=== PATIENT | female | born 1990 | race Caucasian/White ===

== ENCOUNTER 2016-04-27 14:12 | Emergency (ER) | payer MEDICAID ==
[2016-04-27 14:57] VITALS: BP 98/41
--- NOTE | 2016-04-27 15:02 | ER Document Report ---
ED Medical Screen (RME) - General Stated Complaint: NAUSEA Notes: abscess to left breast x 3 days. + headache, + nausea. no drainage. TRAVEL OUTSIDE OF THE [place] IN LAST 30 DAYS: No - Related Data Allergies/Adverse Reactions: Choline Fenofibrate [From Trilipix] Allergy (Mild, Verified 09/17/15 18:17) rash oxcarbazepine [From Trileptal] Allergy (Verified 09/17/15 18:17) Past Medical History Pulmonary Medical History: Reports: Hx Bronchitis Psychiatric Medical History: Reports: Hx Anxiety, Hx Bipolar Disorder - mood d/o , Hx Depression Past Surgical History: Reports: Hx Tonsillectomy - Immunizations Hx Diphtheria, Pertussis, Tetanus Vaccination: Yes Physical Exam - Vital signs Vitals: Temp Pulse Resp BP Pulse Ox 97.8 F 75 16 98/41 L 100 04/27/16 14:56 04/27/16 14:56 04/27/16 14:56 04/27/16 14:56 04/27/16 14:56 Course - Vital Signs Vital signs: Temp Pulse Resp BP Pulse Ox 97.8 F 75 16 98/41 L 100 04/27/16 14:56 04/27/16 14:56 04/27/16 14:56 04/27/16 14:56 04/27/16 14:56
== END 2016-04-27 17:12 | disposition left against medical advice (07) ==
LOC: ER 14:12
DX: O26.892 Other specified pregnancy related conditions, second trimester (principal); R11.0 Nausea; R51 Headache; O91.112 Abscess of breast associated with pregnancy, second trimester; Z3A.17 17 weeks gestation of pregnancy; Z88.8 Allergy status to other drugs, medicaments and biological substances; Z53.20 Procedure and treatment not carried out because of patient's decision for unspecified reasons
CPT/HCPCS: 99281

== ENCOUNTER 2016-09-08 21:43 | Outpatient (CLI) | payer OTHER ==
[2016-09-08 23:11] LABS: APPEARANCE,URINE CLEAR; BILIRUBIN,URINE NEGATIVE (NEGATIVE); GLUCOSE, URINE NEGATIVE (NEGATIVE); KETONES,URINE NEGATIVE (NEGATIVE); PROTEIN,URINE NEGATIVE (NEGATIVE); URINE SPECIFIC GRAVITY > 1.060
[2016-09-08 23:12] LABS: LEUKOCYTE ESTERASE,URINE NEGATIVE (NEGATIVE); NITRITE,URINE NEGATIVE (NEGATIVE); UROBILINOGEN,URINE NEGATIVE mg/dL (<2.0)
[2016-09-08 23:23] LABS: URINE BARBITURATES SCREEN NEGATIVE; URINE METHADONE SCREEN NEGATIVE; URINE OPIATES LOW NEGATIVE; URINE PHENCYCLIDINE SCREEN NEGATIVE
--- NOTE | 2016-09-08 23:37 | RADIOLOGY REPORT (SQ) ---
EXAM DESCRIPTION: U/S OB LIMITED COMPLETED DATE/TIME: 09/08/2016 11:29 pm REASON FOR STUDY: routine ANNA COMPARISON: None. TECHNIQUE: Limited transabdominal grayscale ultrasound for evaluation of specific requested obstetri constantine parameters. LIMITATIONS: None. FINDINGS: ANNA: 8.4 cm. FHR: 152 beats per minute. PRESENTATION: Cephalic. OTHER: No other significant findings. IMPRESSION: LIMITED OBSTETRICAL ULTRASOUND WITH MEASURED PARAMETERS DELINEATED ABOVE. Trimester of : Third trimester - 28 weeks to delivery. TECHNICAL DOCUMENTATION: JOB ID: [id number] [employer]- All Rights Reserved
--- NOTE | 2016-09-09 00:05 | Non Stress Test Report ---
Non Stress Test Datetime Report Generated by CPN: 09/09/2016 00:05 DEMOGRAPHIC EGA NST: 38.2 INDICATION Indication for Study: Ordered by Provider MONITORING Monitor Explained: Monitor Explained; Test Explained; Patient Verbalized Understanding Time on Monitor: 09/08/2016 21:57 Time off Monitor: 09/08/2016 23:09 NST Duration: 72 NST INTERVENTIONS NST Interventions: PO Hydration Physician Notified NST: Hall BABY A: [id number] BABY A Movement : Present Contraction Frequency : rare FHR Baseline : 150 Accelerations : 15X15 Decelerations : None Variability : Moderate 6-25bpm NST Review: Meets Criteria for Reactive NST NST Review and Verified By : VINICIO Haider NST Results: Reactive NST REPORT Report Trigger: Send Report
== END 2016-09-08 23:47 | disposition home or self-care (01) ==
LOC: LC 21:43
PROVIDERS: ATTEND Obstetrics & Gynecology
PROC: 4A1HXCZ Monitoring of Products of Conception, Cardiac Rate, External Approach (ICD-10-PCS; principal; 2016-09-08)
DX: O47.1 False labor at or after 37 completed weeks of gestation (principal); Z3A.38 38 weeks gestation of pregnancy
CPT/HCPCS: 59025; 76815; 80307; 81005

== ENCOUNTER 2016-09-13 00:56 | Inpatient (IN) | payer OTHER ==
[2016-09-13 01:41] LABS: APPEARANCE,URINE SLIGHTLY-CLOUDY; BILIRUBIN,URINE NEGATIVE (NEGATIVE); GLUCOSE, URINE NEGATIVE (NEGATIVE); KETONES,URINE NEGATIVE (NEGATIVE); LEUKOCYTE ESTERASE,URINE LARGE (NEGATIVE); NITRITE,URINE NEGATIVE (NEGATIVE); PROTEIN,URINE NEGATIVE (NEGATIVE)
[2016-09-13 01:48] LABS: AMNISURE (ROM) NEGATIVE (NEGATIVE)
[2016-09-13 02:29] LABS: URINE BARBITURATES SCREEN NEGATIVE; URINE METHADONE SCREEN NEGATIVE; URINE OPIATES LOW NEGATIVE; URINE PHENCYCLIDINE SCREEN NEGATIVE
[2016-09-13] MEDS ORDERED: TERBUTALINE SULFATE INJ/PF 1 MG/1 ML SDV ONE (04:06)
[2016-09-13] MEDS ORDERED: RINGERS SOLUTION,LACTATED 1,000 ML IV ONE (04:16)
[2016-09-13] MEDS ORDERED: RINGERS SOLUTION,LACTATED 1,000 ML IV PRN (04:16)
[2016-09-13] MEDS ORDERED: CITRIC ACID/SODIUM CITRATE ORAL SOLN 15 ML UDCUP PO PRN ×2 (04:18→05:55)
[2016-09-13] MEDS ORDERED: CEFAZOLIN 2 GM/D5W RTU 2 GM/50 ML RTUPB IV PRN (05:05)
[2016-09-13] MEDS ORDERED: CEFAZOLIN 2 GM/D5W RTU 2 GM/50 ML RTUPB IV ONE (05:23)
[2016-09-13] MEDS ORDERED: CITRIC ACID/SODIUM CITRATE ORAL SOLN 15 ML UDCUP ONE (05:23)
[2016-09-13 05:32] LABS: HEMATOCRIT 33.5 % (36.0-47.0); HGB HCT DIFFERENCE -0.5; MEAN CORPUSCULAR HEMOGLOBIN 28.5 pg (27.0-33.4); MEAN CORPUSCULAR HGB CONC 32.8 g/dL (32.0-36.0); MEAN CORPUSCULAR VOLUME 87 fl (80-97); RED BLOOD COUNT 3.87 10^6/uL (3.72-5.28); RED CELL DISTRIBUTION WIDTH 13.7 % (11.5-14.0); WHITE BLOOD COUNT 20.9 10^3/uL (4.0-10.5)
[2016-09-13] MEDS ORDERED: EPHEDRINE SULFATE INJ 50 MG/1 ML AMPULE ONE (05:44)
[2016-09-13] MEDS ORDERED: FENTANYL CITRATE INJ/PF 100 MCG/2 ML AMPUL ONE (05:44)
[2016-09-13] MEDS ORDERED: OXYTOCIN 10 UNIT/ML VIAL ONE (05:44)
[2016-09-13] MEDS ORDERED: PROPOFOL INJ 200 MG/20 ML VIAL IV ONE (05:44)
[2016-09-13] MEDS ORDERED: MIDAZOLAM 2 MG/2 ML INJ ONE (05:45)
[2016-09-13] MEDS ORDERED: DIPHENHYDRAMINE HCL 50 MG/ML VIAL IV PRN (06:23)
[2016-09-13 06:25] LABS: BASOPHILS % (MANUAL) 0 % (0-2); EOSINOPHILS % (MANUAL) 0 % (0-6); LYMPHOCYTES % (MANUAL) 13 % (13-45); TOTAL CELLS COUNTED 100
[2016-09-13 06:26] LABS: OVALOCYTES SLIGHT; POIKILOCYTOSIS SLIGHT; SCHISTOCYTES SLIGHT; TOXIC GRANULATION SLIGHT
[2016-09-13] MEDS ORDERED: OXYTOCIN/NORMAL SALINE 1,000 ML IV PRN (07:17)
[2016-09-13] MEDS ORDERED: DIPH/PERTUSS(ACELL)/TETANUS VAC/PF 0.5 ML SYR (>=10YO) IM PRN (07:17)
[2016-09-13] MEDS ORDERED: ACETAMINOPHEN 100 ML IV PRN (07:17)
[2016-09-13] MEDS ORDERED: MEASLES,MUMPS&RUBELLA VACC/PF 0.5 ML VIAL SUBCUT PRN (07:17)
[2016-09-13] MEDS ORDERED: SIMETHICONE 80 MG TAB.CHEW PO PRN (07:17)
[2016-09-13] MEDS ORDERED: HYDROMORPHONE HCL INJ/PF 2 MG/ML AMPULE IV PRN (07:17)
[2016-09-13] MEDS ORDERED: ACETAMINOPHEN 325 MG TABLET PO PRN (07:17)
[2016-09-13] MEDS ORDERED: PROMETHAZINE HCL INJ 25 MG/1 ML VIAL IV PRN (07:17)
[2016-09-13] MEDS ORDERED: OXYCODONE-ACETAMINOPHEN 5-325 MG TABLET PO PRN (07:17)
--- NOTE | 2016-09-13 07:24 | Brief Operative Note ---
BRIEF OPERATIVE REPORT DATE OF SURGERY: 09/13/16 TIME OF SURGERY: 06:00 PREOPERATIVE DIAGNOSIS: , PUND at 39+0, h/o shoulder dystocia times 2 POSTOPERATIVE DIAGNOSIS: MORIS - delivered SURGEON: ABIMAEL LEIVA FINDINGS: normal tubes and ovaries, no nuchal cord. infant delivered at 0623, VMI. Apgars 8/9. Uterus incision nicked and then extended bluntly in usual fashion with left lateral extension to uterine artery upon delivery of head. UOP 200ml and clear, IVF 1100ml COMPLICATIONS: none ESTIMATED BLOOD LOSS: 700ml TISSUE REMOVED OR ALTERED: placenta and cord not sent to pathology TECHNICAL PROCEDURE: Primary Low Transverse Section
--- NOTE | 2016-09-13 07:48 | Delivery Summary ---
Del Sum A-C Datetime Report Generated by CPN: 09/13/2016 07:47 DELIVERY PERSONNEL DELIVERY PERSONNEL: [phone] Delivery Doctor:: Korin Madison MD Anesthesiologist:: Edgar Pal MD ASSISTANT HEALTH EDUCATOR:: Crissy Duran CRNA Labor and Delivery Nurse:: Maggie Simon RN Neonatal Nurse Practitioner:: KWAME Rice Nursery Nurse:: Candy Alaniz RN Photocomposing Keyboard Operator/ENGRAVING SUPERVISOR: Elo Silva CST Photocomposing Keyboard Operator/ENGRAVING SUPERVISOR: ST Barber Additional Personnel: : Ralph Stephens CNA MATERNAL INFORMATION Delivery Anesthesia: Spinal Medications After Delivery: Pitocin Bolus-Please Comment Maternal Complications: None LABOR SUMMARY EDC: 09/20/2016 00:00 No. Babies in Womb: 1 Attempted: No Labor Anesthesia: None LABOR INFORMATION Reason for Induction: Not Applicable Onset of Labor: 09/13/2016 02:22 Oxytocin: N/A Group B Beta Strep: Positive Antibiotics # of Doses: 1 Antibiotics Time of Last Dose: 51 Name of Antibiotic Given: Ancef 2 grams Steroids Given: None Reason Steroids Not Administered: Not Applicable MEMBRANES Membranes Rupture Method: Artificial Rupture of Membranes: 09/13/2016 06:23 Length of Rupture (hr): 0.00 Amniotic Fluid Amount: Moderate Amniotic Fluid Odor: Normal STAGES OF LABOR Stage 3 hr: 0 Stage 3 min: 1 Total Time in Labor hr: 4 Total Time in Labor min: 2 VAGINAL DELIVERY Episiotomy: None Laceration Extension: N/A Laceration Type: None Laceration Repair: Not Applicable Sponge Count Correct: N/A Sharps Count Correct: N/A CSECTION DELIVERY Primary Indication: Primary Elective Secondary Indication: Other Other Secondary Indication: Previous shoulder dystocia x 2 CSection Urgency: Non-Scheduled CSection Incidence: Primary Labor: Labor Elective: Elective CSection Incision: Lower Uterine Transverse BABY A INFORMATION Delivery Date/Time: 09/13/2016 06:23 Method of Delivery: Born in Route : No : N/A Forceps: N/A Vacuum Extraction: N/A Shoulder Dystocia : No PRESENTATION/POSITION BABY A Presentation: Cephalic Cephalic Presentation: Vertex Breech Presentation: N/A PLACENTA INFORMATION BABY A Placenta Delivery Time : 09/13/2016 06:24 Placenta Method of Delivery: Manual Removal Placenta Status: Delivered SCORES BABY A Heart Rate 1 min: >100 bpm Resp Effort 1 min: Good Cry Reflex Irritability 1 min: Cough or Sneeze or Pulls Away Muscle Tone 1 min: Active Motion Color 1 min: Blue/Pale Resuscitation Effort 1 min: Tactile Stimulation SCORE 1 MIN: 8 Heart Rate 5 min: >100 bpm Resp Effort 5 min: Good Cry Reflex Irritability 5 min: Cough or Sneeze or Pulls Away Muscle Tone 5 min: Active Motion Color 5 min: Body Cochrane, Extremities Blue SCORE 5 MIN: 9 INFORMATION BABY A Gestational Age at Delivery: 39.0 Gestational Status: Full Term- 39- 40.6 Weeks Infant Outcome : Liveborn Infant Condition : Stable Sex: Male IDENTIFICATION BABY A Verification Date/Time: 09/13/2016 06:29 ID Band Number: [id number] Mother's Name Verified: Yes Infant RN Verifying Infant: SJesus Lipscomb, RN _ C. Jacy, RN WEIGHT/LENGTH BABY A Infant Birthweight (gm): 2940 Weight (lb): 6 Weight (oz): 8 Infant Length (in): 19.75 Infant Length (cm): 50.17 CORD INFORMATION BABY A No. Cord Vessels: 3 Nuchal Cord : N/A Cord Blood Taken: Yes-For Storage (Mom's Blood type +) Infant Suction: Mouth; Nose ASSESSMENT BABY A Infant Complications: None Skin to Skin: No BABY B INFORMATION : N/A
[2016-09-13] MEDS ORDERED: OXYTOCIN/NORMAL SALINE 20 UNIT/1,000 ML RTUINJ ONE (07:54)
[2016-09-13] MEDS ORDERED: ACETAMINOPHEN 100 ML IV ONE (07:54)
--- NOTE | 2016-09-13 10:19 | Admission Physical ---
Datetime Report Generated by CPN: 09/13/2016 10:18 CURRENT ADMISSION Chief Complaint: Uterine Contractions Indication for Induction: Not Applicable Admit Plan: Admit to Unit; Initiate Section Protocol ALLERGIES Medication Allergies: Yes Medication Allergies: Choline Fenofibrate/NJ/rash (04/27/2016); oxcarbazepine (04/27/2016) Latex: No Latex Allergies Food Allergies: none Environmental Allergies: none OBSTETRICAL HISTORY EDC: 09/20/2016 00:00 : 4 Para: 2 Term: 2 : 0 SAB: 1 IAB: 0 Ectopic: 0 Livin Cesareans: 0 VBACs: 0 Multiple Births: 0 Gestational Diabetes: No Rh Sensitization: No Incompetent Cervix: No ANGELES: No Infertility: No ART Treatment: No Uterine Anomaly: No IUGR: No Hx Previous C/S: No Macrosomia: No Hx Loss/Stillborn: No PIH: No Hx : No Placenta Previa/Abruption: No Depression/PP Depression: No PTL/PROM: No Post Hemorrhage: No Current Procedures: Ultrasound; NST Obstetrical History Comments: G1: 2006 G2: male 7lbs 6 ounces G3: female with shoulder dystocia 7lbs 10 ounces G4: Current, scheduled c/s SEE RECORDS Alcohol: No Marijuana : No Cocaine: No Other Illicit Drugs: No Cigarettes: Current Everyday Smoker. [id number] Cigarette Frequency: 5 - 10 per day Advised to Stop: Yes MEDICAL HISTORY Diabetes: No Blood Transfusion: No Pulmonary Disease (Asthma, TB): No Breast Disease: No Hypertension: No Pest Control Service Technician Surgery: No Heart Disease: No Hosp/Surgery: Yes Autoimmune Disorder: No Anesthetic Complications: No Kidney Disease: No Abnormal Pap Smear: Yes Neuro/Epilepsy: No Psychiatric Disorders: Yes Other Medical Diseases: No Hepatitis/Liver Disease: No Significant Family History: No Varicosities/Phlebitis: No Trauma/Violence : No Thyroid Dysfunction: No Medical History Comments: abnormal paps- repeats negative tonsils and adenoids; d_c G3 diagnosed with ADHD and bipolar as a teenager, no meds since age 18 hx heroin use, pt states she is clean for 1 year, on subutex INFECTIOUS HISTORY Gonorrhea: Yes Genital Herpes: No Chlamydia: Yes Tuberculosis: No Syphilis: No Hepatitis: No HIV/AIDS Exposure: No Rash or Viral Illness: No HPV: No Infectious History Comments: Chlamydia, gonorrhea and trich when teenager PHYSICAL EXAM General: Normal HEENT: Normal Neurologic: Normal Thyroid: Normal Heart: Normal Lungs: Normal Breast: Deferred Back: Normal Abdomen: Normal Genitourinary Exam: Normal Extremities: Normal DTRs: Normal Pelvic Type: Adequate Vital Signs: Reviewed; Within Normal Limits VAGINAL EXAM Dilatation: 5 Effacement: 90 Station: -1 Contraction Comments: q 2-5 MEMBRANES Membranes: Intact FETUS A EGA: 39.0 Monitoring: External US FHR- Baseline: 130 Variability: Moderate 6-25bpm Accelerations: 15X15 Decelerations: None FHR Category: Category I Presentation: Vertex Admit Comment: 26yo at 39+0ega with h/o reports shoulder dystocia with prior two and reports G2 had torticolis caused by shoulder dystocia. Baby required 9 months of physical therapy. She was scheduled for Primary C/S next week but presents today with regular uterine ctx. cvx changed from 4cm to 5cm. Pt desires OCPs pp for contraception. Reviewed plan to proceed with Primary C/S and pt strongly desires to proceed with primary C/S due to h/o shoulder dystocia times 2. PLANS FOR LABOR AND DELIVERY Labor and Delivery: None Pain Management: None Other Pain Management Plans: wants to try going without Feeding Preference: Breast Benefit of Breast Feed Discussed: Yes Circumcision: Yes INFORMED CONSENT Informed Consent Obtained: Section Delivery; Risks, Benefits and Alternatives Discussed Signature: with User ID: [email or web address]
[2016-09-13] MEDS: PRENATAL VITAMIN W-O CA NO5/FE FUMARATE/FA CAPSULE PO SCH (11:45)
[2016-09-13] MEDS: DOCUSATE SODIUM 100 MG CAPSULE PO SCH ×2 (11:45→17:30)
[2016-09-13] MEDS: IBUPROFEN 800 MG TABLET PO SCH ×3 (11:51→23:03)
[2016-09-13] MEDS ORDERED: KETOROLAC TROMETHAMINE 60 MG/2 ML SDV ONE (13:50)
[2016-09-13] MEDS ORDERED: ONDANSETRON HCL INJ/PF 4 MG/2 ML SDV ONE (13:50)
[2016-09-13] MEDS: OXYCODONE-ACETAMINOPHEN 5-325 MG TABLET PO PRN (14:20)
[2016-09-14] MEDS: OXYCODONE-ACETAMINOPHEN 5-325 MG TABLET PO PRN ×5 (00:13→23:41)
[2016-09-14] MEDS: IBUPROFEN 800 MG TABLET PO SCH ×4 (06:13→23:42)
[2016-09-14 07:17] LABS: HEMATOCRIT 27.3 % (36.0-47.0); HEMOGLOBIN 9.1 g/dL (12.0-15.5); MEAN CORPUSCULAR HEMOGLOBIN 28.8 pg (27.0-33.4); MEAN CORPUSCULAR HGB CONC 33.3 g/dL (32.0-36.0); MEAN CORPUSCULAR VOLUME 86 fl (80-97); RED BLOOD COUNT 3.16 10^6/uL (3.72-5.28); RED CELL DISTRIBUTION WIDTH 13.5 % (11.5-14.0); WHITE BLOOD COUNT 17.4 10^3/uL (4.0-10.5)
--- NOTE | 2016-09-14 09:10 | PDOC PROGRESS REPORT ---
Subjective-OB Subjective: Post Delivery Day: 26 year old. Denies any needs at this time Doing well, OOB in room, eating well, voiding, pain under control, passing gas, breast feeding Physical Exam (OB) Vital Signs: Temp Pulse Resp BP Pulse Ox 98.4 F 82 16 109/67 99 09/14/16 07:35 09/14/16 07:35 09/14/16 07:35 09/14/16 07:35 09/14/16 07:35 Intake & Output 09/13/16 09/14/16 09/15/16 06:59 06:59 06:59 Intake Total 1080 Output Total 1100 Balance -20 Weight 74.1 kg - Dressing Removed: No Incision: Open Closure Type: Surgical Glue - Lochia Lochia Amount: Scant < 10 ml Lochia Color: Rubra/Red - Abdomen Description: Soft, Round Hernia Present: No Fundal Description: Firm, Midline Fundal Height: u/u - u/2 Objective-Diagnostic Laboratory: 09/14/16 07:00 09/14/16 07:00 WBC 17.4 H RBC 3.16 L Hgb 9.1 L Hct 27.3 L MCV 86 MCH 28.8 MCHC 33.3 RDW 13.5 Plt Count 235 Assessment and Plan(PN) - Assessment and Plan (1) ADHD Qualifiers: Attention deficit-hyperactivity disorder type: unspecified Qualified Code(s): F90.9 - Attention-deficit hyperactivity disorder, unspecified type Is this a current diagnosis for this admission?: Yes (2) complicated by subutex maintenance, antepartum Is this a current diagnosis for this admission?: Yes (3) Heroin abuse Is this a current diagnosis for this admission?: Yes (4) Late care affecting Qualifiers: Trimester: third trimester Qualified Code(s): O09.33 - Supervision of with insufficient care, third trimester Is this a current diagnosis for this admission?: Yes (5) Smoker Is this a current diagnosis for this admission?: Yes (6) Delivery by elective caesarean section Is this a current diagnosis for this admission?: Yes - Time Spent with Patient Time with patient: Less than 15 minutes Smoking Education Provided: Over 3 minutes Medications reviewed and adjusted accordingly: Yes - Disposition Anticipated Discharge: Home Within: within 48 hours
[2016-09-14] MEDS: PRENATAL VITAMIN W-O CA NO5/FE FUMARATE/FA CAPSULE PO SCH (10:15)
[2016-09-14] MEDS: DOCUSATE SODIUM 100 MG CAPSULE PO SCH ×2 (10:15→18:22)
[2016-09-15] MEDS: OXYCODONE-ACETAMINOPHEN 5-325 MG TABLET PO PRN ×2 (05:09→11:27)
[2016-09-15] MEDS: IBUPROFEN 800 MG TABLET PO SCH ×3 (05:10→17:39)
[2016-09-15 08:40] VITALS: BP 112/72
--- NOTE | 2016-09-15 08:47 | PDOC DISCHARGE SUMMARY ---
Final Diagnosis Discharge Date: 09/15/16 - Final Diagnosis (1) Acute blood loss anemia Is this a current diagnosis for this admission?: Yes (2) ADHD Is this a current diagnosis for this admission?: Yes (3) Delivery by elective caesarean section Is this a current diagnosis for this admission?: Yes (4) Heroin abuse Is this a current diagnosis for this admission?: Yes (5) Late care affecting Is this a current diagnosis for this admission?: Yes (6) complicated by subutex maintenance, antepartum Is this a current diagnosis for this admission?: Yes (7) Smoker Is this a current diagnosis for this admission?: Yes (8) BV (bacterial vaginosis) Is this a current diagnosis for this admission?: Yes (9) Infected insect bites of multiple sites Is this a current diagnosis for this admission?: Yes Discharge Data - Discharge Medication Home Medications: Vit#96/Ferrous Fum/FA [ Tablet] 1 each PO DAILY 05/12/14 Buprenorphine HCl [Subutex 8 mg Sublingual Tablet] 1 tab SL BID 09/13/16 Docusate Sodium [Colace 100 mg Capsule] 100 mg PO BID #60 capsule 09/15/16 Ferrous Sulfate [Feosol 325 mg Tablet] 325 mg PO DAILY #30 tab 09/15/16 Ibuprofen [Motrin 800 mg Tablet] 800 mg PO Q6 #60 tablet 09/15/16 Oxycodone HCl/Acetaminophen [Percocet 5-325 mg Tablet] 2 tab PO Q4HP PRN #30 tablet 09/15/16 Gestational Age: 39.0 Reason(s) for Admission: Ceasarean Section-Primary, Group B Strep Positive Procedures: NST Intrapartum Procedure(s): : Low Cervical, Transverse - Data Baby 1 Female at 1 minute: 8 at 5 minutes: 9 Weight: 2940 kg Home with Mother: Yes Complications: No - Diagnosis Test Laboratory: Temp Pulse Resp BP Pulse Ox 97.9 F 104 H 14 112/72 99 09/15/16 08:00 09/15/16 08:00 09/15/16 08:00 09/15/16 08:00 09/15/16 08:00 09/13/16 09/13/16 09/14/16 01:20 04:59 07:00 RBC 3.87 3.16 L Hgb 11.0 L 9.1 L Hct 33.5 L 27.3 L Urine Opiates Screen NEGATIVE - Discharge information/Instructions Discharge Activity: Activity As Tolerated, No Lifting Over 10 Pounds, Pelvic Rest, No tub bath Discharge Diet: Regular Disposition: HOME, SELF-CARE Follow up with: [facility] in: 1, Weeks
[2016-09-15] MEDS: DOCUSATE SODIUM 100 MG CAPSULE PO SCH ×2 (09:39→17:39)
[2016-09-15] MEDS: PRENATAL VITAMIN W-O CA NO5/FE FUMARATE/FA CAPSULE PO SCH (09:40)
--- NOTE | 2016-10-13 07:56 | Operative Report ---
Operative Report DATE OF SURGERY: 09/13/16 PREOPERATIVE DIAGNOSIS: , PUND at 39+0, h/o shoulder dystocia times 2, Active labor POSTOPERATIVE DIAGNOSIS: MORIS - delivered OPERATION: Primary Low Transverse Section SURGEON: ABIMAEL LEIVA ANESTHESIA: Spinal TISSUE REMOVED OR ALTERED: placenta and cord not sent to pathology COMPLICATIONS: None ESTIMATED BLOOD LOSS: 700ml INTRAOPERATIVE FINDINGS: normal tubes and ovaries, no nuchal cord. delivered at 0623, VMI. Apgars 8/9. Uterus incision nicked and then extended bluntly in usual fashion with left lateral extension to uterine artery upon delivery of head. UOP 200ml and clear, IVF 1100ml PROCEDURE: Anesthesia provider: [Edgar Pal MD] Estimated blood loss: [700ml] Urine output: [200ml] IV fluids: [1100ml] Complications: [None] Specimens: [None] Indications: [26yo with history of shoulder dystocia during prior 2 pregnancies. She was scheduled for primary section due to history of shoulder dystocia times two. She presents today in active labor with regular uterine contractions and cervical change from 4cm to 5cm. The risks, benefits, alternatives were reviewed and she desires to proceed with planned procedure.] Procedure: The patient was taken to the operating room where spinal anesthesia was obtained and found to be adequate. She was then prepped and draped in the normal sterile fashion and placed in the dorsal supine position with a leftward tilt. A Pfannenstiel skin incision was then made and carried through to the underlying layers of the fascia with the scalpel. The fascia was incised in the midline and the incision extended laterally with the Darling scissors. The superior aspect of the fascial incision was then grasped with Kj clamps elevated and the underlying rectus muscles dissected off [bluntly]. Attention was then turned to the inferior aspect of the fascial incision which in a similar fashion was grasped, tented up with Dread clamps, and the rectus muscles dissected off [bluntly]. The rectus muscles were then in the midline and the peritoneum at the amount identified and entered [bluntly]. The peritoneal incision was then extended superiorly and inferiorly with good visualization of the bladder. The bladder blade was inserted and the vesicouterine peritoneum identified grasped with Mongolian pickups and entered sharply with the Metzenbaum scissors. This incision was then extended laterally with the Metzenbaum scissors and a bladder flap created digitally. The bladder blade was then reinserted and the lower uterine segment incised in a transverse fashion with the scalpel. The uterine incision was then extended bluntly. The bladder blade was removed and the 's head was delivered from cephalic presentation atraumatically. The nose and mouth were suctioned and the cord doubly clamped and cut. And the was handed off to waiting pediatricians. Delivery of the head caused extension of the uterine incision to the left into the left uterine artery. O'leary suture placed on this site for hemostasis which was achieved. The placenta was then delivered spontaneously and the uterus exteriorized and cleared of all clots and debris. The uterine incision was then repaired with 1- 0 Vicryl in a running locked fashion. A second layer of the same suture was used to obtain hemostasis via imbrication of the initial layer. The bladder flap was then repaired with 3-0 chromic in a running fashion. The uterus was returned to the patient's abdomen and Interceed was placed overlying the uterine incision to prevent adhesions. The gutters were cleared of all clots and debris. All operative sites were noted to be hemostatic. The fascia was reapproximated with 0 Vicryl in a running fashion from each lateral edge to the midline. The skin was closed with 3-0 Monocryl in a running subcuticular fashion with overlying Dermabond for additional dressing as well as wound closure. The patient tolerated the procedure well. Sponge lap needle and instrument counts are correct times 2. 2 g of Ancef were given prior to skin incision. The patient was taken to the recovery area awake and in stable condition.
== END 2016-09-15 08:00 | disposition home or self-care (01) | DRG 765 ==
LOC: LC 00:56 → LR 04:04 → 2S 10:16
PROVIDERS: ADMIT Student in an Organized Health Care Education/Training Program; ATTEND Student in an Organized Health Care Education/Training Program
PROC: 10D00Z1 Extraction of Products of Conception, Low, Open Approach (ICD-10-PCS; principal; 2016-09-13)
PROC: 4A1HXCZ Monitoring of Products of Conception, Cardiac Rate, External Approach (ICD-10-PCS; 2016-09-13)
DX: O75.3 Other infection during labor (principal); O99.324 Drug use complicating childbirth; D62 Acute posthemorrhagic anemia; F11.10 Opioid abuse, uncomplicated; O99.344 Other mental disorders complicating childbirth; F31.9 Bipolar disorder, unspecified; F90.9 Attention-deficit hyperactivity disorder, unspecified type; O99.334 Smoking (tobacco) complicating childbirth; F17.210 Nicotine dependence, cigarettes, uncomplicated; O99.02 Anemia complicating childbirth; N76.0 Acute vaginitis; T14.8 Other injury of unspecified body region; B96.89 Other specified bacterial agents as the cause of diseases classified elsewhere; O99.824 Streptococcus B carrier state complicating childbirth; Z91.048 Other nonmedicinal substance allergy status; Z3A.39 39 weeks gestation of pregnancy; Z37.0 Single live birth
CPT/HCPCS: 1961; 36415; 80307; 81005; 84112; 85025; 85027; 86592; 86850; 86900; 86901; 94799; J0131; J0690; J1885; J2250; J2405; J2590; J2704; J3010; J3105; J3490

== ENCOUNTER 2017-09-02 07:43 | Inpatient (IN) | payer OTHER ==
[2017-09-02] MEDS ORDERED: ACETAMINOPHEN 325 MG TABLET PO ONE (07:52)
[2017-09-02] MEDS ORDERED: NORMAL SALINE 1000 ML 1,000 ML IV ONE ×2 (08:08→10:05)
[2017-09-02] MEDS ORDERED: MORPHINE SULFATE 10 MG/ML INJ IV ONE (08:19)
[2017-09-02] MEDS ORDERED: ONDANSETRON 4 MG TAB.RAPDIS PO ONE (08:19)
[2017-09-02] MEDS ORDERED: KETOROLAC TROMETHAMINE INJ/PF 30 MG/1 ML SDV IV ONE (08:19)
--- NOTE | 2017-09-02 08:19 | ER Document Report ---
ED GI/ - General Chief Complaint: Lower Abdominal Pain Stated Complaint: ABDOMINAL PAIN Time Seen by Provider: 09/02/17 08:05 Notes: 27-year-old female patient emergency department chief complaint of right flank pain, right lower quadrant pain, pelvic pain, fever and generally feeling ill. Symptoms began a few days ago. Getting worse. Patient does state that she has had a history of gonorrhea and chlamydia. Was having some pain in the vaginal area was radiating to the rectum as well. Pain is described as throbbing and sharp. Radiating to the right flank right pelvis and rectum. Fever today. Nausea but no vomiting. No diarrhea. TRAVEL OUTSIDE OF THE [place] IN LAST 30 DAYS: No - HPI Patient complains to provider of: Abdominal pain, Flank pain, Pelvic pain, Vaginal discharge, Vaginal pain Onset: Yesterday Timing/Duration: Gradual, Worse Severity at maximum: Moderate Severity in ED: Severe Pain Level: 4 - Related Data Allergies/Adverse Reactions: Choline Fenofibrate [From Trilipix] Allergy (Mild, Verified 09/02/17 07:55) rash oxcarbazepine [From Trileptal] Allergy (Verified 09/02/17 07:55) Past Medical History - General Information source: Patient - Social History Smoking Status: Current Every Day Smoker Frequency of alcohol use: Occasional Drug Abuse: Marijuana Lives with: Family Family History: Reviewed & Not Pertinent Pulmonary Medical History: Reports: Hx Bronchitis Renal/ Medical History: Denies: Hx Peritoneal Dialysis Psychiatric Medical History: Reports: Hx Anxiety, Hx Bipolar Disorder - mood d/o , Hx Depression Past Surgical History: Reports: Hx Tonsillectomy - Immunizations Hx Diphtheria, Pertussis, Tetanus Vaccination: Yes Review of Systems - Review of Systems Constitutional: Fever, Malaise, Weakness EENT: denies: Eye pain, Eye discharge, Blurred vision, Nose pain, Difficulty swallowing, Mouth pain Cardiovascular: Heart racing. denies: Chest pain, Palpitations Respiratory: Hurts to breathe. denies: Cough, Short of breath, Wheezing Gastrointestinal: Abdominal pain. denies: Diarrhea, Nausea, Vomiting Genitourinary: Discharge, Flank pain. denies: Burning, Dysuria Female Genitourinary: Vaginal discharge. denies: Vaginal bleeding, Vaginal odor , Painful intercourse Musculoskeletal: Back pain. denies: Joint pain, Muscle pain Skin: denies: Lesions, Lumps, Rash Hematologic/Lymphatic: denies: Blood clots, Easy bleeding, Easy bruising Neurological/Psychological: denies: Confusion, Weakness, Numbness Physical Exam - Vital signs Vitals: Temp Pulse Resp BP Pulse Ox 101.3 F H 120 H 16 127/71 H 96 09/02/17 07:49 09/02/17 07:49 09/02/17 07:49 09/02/17 07:49 09/02/17 07:49 Interpretation: Tachycardic, Febrile - General General appearance: Appears well, Alert In distress: Mild Notes: unComfortable appearing - HEENT Head: Normocephalic, Atraumatic Eyes: Normal Pupils: PERRL Mucous membranes: Dry - Respiratory Respiratory status: No respiratory distress Chest status: Nontender Breath sounds: Normal Chest palpation: Normal - Cardiovascular Rhythm: Tachycardia Heart sounds: Normal auscultation Murmur: No - Abdominal Inspection: Normal Distension: No distension Bowel sounds: Normal Tenderness: Tender, Guarding, Other - Tenderness to palpation of the suprapubic , right lower quadrant and right upper quadrant area.. No: Rebound Organomegaly: No organomegaly - Genitourinary External exam: Normal Speculum exam: Vaginal discharge Vaginal bleeding: None Bimanuel exam: Cervical motion tender, Adnexal tenderness. No: Adnexal mass - Back Back: Normal, CVA tenderness, Other - CVA tenderness on the right flank - Extremities General upper extremity: Normal inspection, Nontender, Normal color, Normal ROM , Normal temperature General lower extremity: Normal inspection, Nontender, Normal color, Normal ROM , Normal temperature, Normal weight bearing. No: Mark's sign - Neurological Neuro grossly intact: Yes Cognition: Normal Orientation: AAOx4 [place] Coma Scale Eye Opening: Spontaneous [place] Coma Scale Verbal: Oriented [place] Coma Scale Motor: Obeys Commands [place] Coma Scale Total: 15 Speech: Normal Motor strength normal: LUE, RUE, LLE, RLE Sensory: Normal - Psychological Associated symptoms: Normal affect, Normal mood - Skin Skin Temperature: Warm Skin Moisture: Dry Skin Color: Normal Course - Re-evaluation Re-evalutation: 09/02/17 09:33 Febrile, tachycardic, uncomfortable appearing with pus coming out of her cervix and could represent pyelonephritis as well. IV Rocephin and azithromycin ordered empirically. CT scan ordered to rule out appendicitis and abscess. Fluids and pain medication ordered as well. 09/02/17 10:47 Antibiotics have been given. Fluids given. 2 rounds of morphine given. Heart rate coming down but patient is still significantly uncomfortable. Based on physical exam, trace fluid in the pelvis and pericolic gutters patient has PID. Patient will likely need multiple rounds of IV antibiotics. I have consulted with OTA, Dr. Norton will admit at this time. - Vital Signs Vital signs: Temp Pulse Resp BP Pulse Ox 101.3 F H 120 H 12 127/71 H 96 09/02/17 07:49 09/02/17 07:49 09/02/17 10:00 09/02/17 07:49 09/02/17 10:00 - Laboratory Result Diagrams: 09/02/17 08:53 09/02/17 08:53 Laboratory results interpreted by me: 09/02/17 09/02/17 08:53 09:24 WBC 15.4 H Hgb 11.8 L Hct 34.5 L RDW 14.9 H Seg Neutrophils % 80.4 H Absolute Neutrophils 12.4 H Urine Blood MODERATE H Urine Urobilinogen 2.0 H Ur Leukocyte Esterase MODERATE H Critical Care Note - Critical Care Note Total time excluding time spent on procedures (mins): 35 Comments: Tachycardia, infection, consultation with specialists, fever, leukocytosis Discharge - Discharge Clinical Impression: Pelvic inflammatory disease (PID) Condition: Good Disposition: ADMITTED INPATIENT Admitting Provider: Dr. Laureen Norton Unit Admitted: Medical Floor
[2017-09-02] MEDS ORDERED: CEFTRIAXONE 1 GM/D5W RTU 1 GM/50 ML RTUPB IV ONE (08:20)
--- NOTE | 2017-09-02 09:05 | RADIOLOGY REPORT (SQ) ---
EXAM DESCRIPTION: CHEST SINGLE VIEW COMPLETED DATE/TIME: 09/02/2017 8:57 am REASON FOR STUDY: right side chest pain COMPARISON: None. EXAM PARAMETERS: NUMBER OF VIEWS: One view. TECHNIQUE: Single frontal radiographic view of the chest acquired. RADIATION DOSE: NA LIMITATIONS: None. FINDINGS: LUNGS AND PLEURA: No opacities, masses or pneumothorax. No pleural effusion. MEDIASTINUM AND HILAR STRUCTURES: No masses. Contour normal. HEART AND VASCULAR STRUCTURES: Heart normal in size. Normal vasculature. BONES: No acute findings. HARDWARE: None in the chest. OTHER: No other significant finding. IMPRESSION: NO ACUTE RADIOGRAPHIC FINDING IN THE CHEST. TECHNICAL DOCUMENTATION: JOB ID: [id number]- All Rights Reserved Reading location - IP/workstation name: [email or web address]
[2017-09-02 09:24] LABS: ABSOLUTE EOSINOPHILS # (AUTO) 0.1 10^3/uL (0.0-0.6); ABSOLUTE LYMPHOCYTES (AUTO) 2.1 10^3/uL (0.5-4.7); ABSOLUTE MONOCYTES (AUTO) 0.8 10^3/uL (0.1-1.4); ABSOLUTE NEUT (AUTO) 12.4 10^3/uL (1.7-8.2); BASOPHILS % (AUTO) 0.1 % (0-2); EOSINOPHILS % (AUTO) 0.8 % (0-6); HEMATOCRIT 34.5 % (36.0-47.0); HEMOGLOBIN 11.8 g/dL (12.0-15.5); LYMPHOCYTES % (AUTO) 13.6 % (13-45); MEAN CORPUSCULAR VOLUME 82 fl (80-97); MONOCYTES % (AUTO) 5.1 % (3-13); PLATELET COUNT 289 10^3/uL (150-450); RED CELL DISTRIBUTION WIDTH 14.9 % (11.5-14.0); SEGMENTED NEUTROPHILS % (AUTO) 80.4 % (42-78); TOTAL CELLS COUNTED % (AUTO) 100 %; WHITE BLOOD COUNT 15.4 10^3/uL (4.0-10.5)
[2017-09-02] MEDS ORDERED: AZITHROMYCIN 250 MG TABLET PO ONE (09:28)
[2017-09-02 09:37] LABS: T.VAGINALIS (WET MOUNT) NO TRICHOMONAS SEEN; WBCS (WET MOUNT) 4+ WBCS SEEN; YEAST (WET MOUNT) NO YEAST SEEN
[2017-09-02 09:39] LABS: ALANINE AMINOTRANSFERASE 27 U/L (9-52); ALBUMIN 3.5 g/dL (3.5-5.0); ALKALINE PHOSPHATASE 84 U/L (38-126); ANION GAP 8 (5-19); ASPARTATE AMINO TRANSFERASE 19 U/L (14-36); BILIRUBIN,DIRECT 0.4 mg/dL (0.0-0.4); BILIRUBIN,TOTAL 0.6 mg/dL (0.2-1.3); BLOOD UREA NITROGEN 9 mg/dL (7-20); CALCIUM 9.1 mg/dL (8.4-10.2); CARBON DIOXIDE 26 mmol/L (22-30); CHLORIDE 105 mmol/L (98-107); GLUCOSE 100 mg/dL (75-110); POTASSIUM 4.2 mmol/L (3.6-5.0); SODIUM 139.1 mmol/L (137-145); TOTAL PROTEIN 6.5 g/dL (6.3-8.2)
[2017-09-02 09:41] LABS: BACTERIA (WET MOUNT) 4+ BACTERIA SEEN; RBCS (WET MOUNT) FEW RBCS SEEN
[2017-09-02 09:43] LABS: APPEARANCE,URINE SLIGHTLY-CLOUDY; BILIRUBIN,URINE NEGATIVE (NEGATIVE); COLOR,URINE YELLOW; GLUCOSE, URINE NEGATIVE (NEGATIVE); KETONES,URINE NEGATIVE (NEGATIVE); LEUKOCYTE ESTERASE,URINE MODERATE (NEGATIVE); NITRITE,URINE NEGATIVE (NEGATIVE); PROTEIN,URINE NEGATIVE (NEGATIVE); URINE SPECIFIC GRAVITY 1.015
[2017-09-02] MEDS ORDERED: MORPHINE SULFATE 10 MG/ML INJ IV PRN (10:05)
--- NOTE | 2017-09-02 10:29 | RADIOLOGY REPORT (SQ) ---
EXAM DESCRIPTION: CT ABD/PELVIS WITH IV ONLY COMPLETED DATE/TIME: 09/02/2017 10:21 am REASON FOR STUDY: right flank and RLQ pain COMPARISON: None. TECHNIQUE: CT scan of the abdomen and pelvis performed using helical scanning technique with dynamic intravenous contrast injection. No oral contrast. Images reviewed with lung, soft tissue, and bone windows. Reconstructed coronal and sagittal MPR images reviewed. Delayed images for evaluation of the urinary system also acquired. All images stored on PACS. All CT scanners at this facility use dose modulation, iterative reconstruction, and/or weight based d osing when appropriate to reduce radiation dose to as low as reasonably achievable (ALARA). [facility]: Dose Right [facility]: CareDose [facility]: Dose Right [facility]: Teradose 4D [facility]: OpenLogic CONTRAST TYPE AND DOSE: contrast/concentration: Isovue 370.00 mg/ml; Total Contrast Delivered: 79.0 ml; Total Saline Delivered: 68.0 ml RENAL FUNCTION: None required. The patient is less than 50 years old. RADIATION DOSE: CT Rad equipment meets quality standard of care and radiation dose reduction techniq ues were employed. CTDIvol: NaN - NaN mGy. DLP: 0 mGy-cm.. LIMITATIONS: None. FINDINGS: LOWER CHEST: No significant findings. No nodules or infiltrates. LIVER: Normal size. No masses. No dilated ducts. SPLEEN: Normal size. No focal lesions. PANCREAS: No masses. No significant calcifications. No adjacent inflammation or peripancreatic fluid collections. Pancreatic duct not dilated. GALLBLADDER: No identified stones by CT criteria. No inflammatory changes to suggest cholecystitis. ADRENAL GLANDS: No significant masses or asymmetry. RIGHT KIDNEY AND URETER: No solid masses. No significant calcifications. No hydronephrosis or hyd roureter. LEFT KIDNEY AND URETER: No solid masses. No significant calcifications. No hydronephrosis or hydr oureter. AORTA AND VESSELS: No aneurysm. No dissection. Renal arteries, SMA, celiac without stenosis. RETROPERITONEUM: No retroperitoneal adenopathy, hemorrhage or masses. BOWEL AND PERITONEAL CAVITY: No masses or inflammatory changes. Trace free fluid noted within the ri ght pericolic gutter. No peritoneal masses. APPENDIX: Normal. PELVIS: No mass. Trace free fluid. Normal bladder. ABDOMINAL WALL: No masses. No hernias. BONES: No significant or acute findings. OTHER: No other significant finding. IMPRESSION: TRACE FREE FLUID NOTED WITHIN THE RIGHT PERICOLIC GUTTER IS WELL IS WITHIN THE PELVIS WH ICH IS NONSPECIFIC ING CAN BE SECONDARY TO ANY INFECTIOUS OR INFLAMMATORY PROCESS. OTHERWISE UNREMAR KABLE CONTRAST-ENHANCED CT OF THE ABDOMEN AND PELVIS. TECHNICAL DOCUMENTATION: JOB ID: [id number] Quality ID # [id number]: Final reports with documentation of one or more dose reduction techniques (e.g., Au tomated exposure control, adjustment of the mA and/or kV according to patient size, use of iterative reconstruction technique) 2010 [employer]- All Rights Reserved Reading location - IP/workstation name: [email or web address]
[2017-09-02 11:06] LABS: CHLAM PCR DETECTED (NOT DETECT); GON PCR DETECTED (NOT DETECT)
[2017-09-02] MEDS ORDERED: PROMETHAZINE HCL INJ 25 MG/1 ML VIAL IV PRN (13:47)
--- NOTE | 2017-09-02 14:47 | PDOC H&P ---
History of Present Illness Admission Date/PCP: 09/02/17 10:54 History of Present Illness: AILEEN DIAS is a 27 year old female here with c/o lower and upper abdominal pain that started few day ago. Indicates feeling tired and weak. She describes the pain as severe. Denies n/v. On arrival to ER was found to have tachycardia of 120 bpm and fever of 101.3. Past Medical History LMP: 08/30/2017 Gynecological Infection: Yes - 3 years ago had GC/CZ. Denies Syphyllis or HSV Obstetrical History: none - full term deliveries Pulmonary Medical History: Reports: Bronchitis Psychiatric Medical History: Reports: Bipolar Disorder - mood d/o, Depression Past Surgical History Past Surgical History: Reports: None, Tonsillectomy Social History Information Source: Patient Lives with: Family Smoking Status: Current Every Day Smoker Cigarettes Packs Per Day: 0.5 Frequency of Alcohol Use: Occasional Hx Recreational Drug Use: Yes Drugs: Heroin - Indicates that heroin use is occasional. Last used yesterday per patient Family History Family History: Reviewed & Not Pertinent Parental Family History Reviewed: Yes Children Family History Reviewed: Yes Sibling(s) Family History Reviewed.: Yes Medication/Allergy Home Medications: No Home Medications 09/02/17 Allergies/Adverse Reactions: Choline Fenofibrate [From Trilipix] Allergy (Mild, Verified 09/02/17 07:55) rash oxcarbazepine [From Trileptal] Allergy (Verified 09/02/17 07:55) Review of Systems Constitutional: PRESENT: as per HPI, fatigue, weakness Physical Exam - Physical Exam Vital Signs: Temp Pulse Resp BP Pulse Ox 98.6 F 120 H 18 107/60 97 09/02/17 11:35 09/02/17 07:49 09/02/17 14:01 09/02/17 14:01 09/02/17 14:01 General appearance: PRESENT: cooperative, mild distress, well-nourished Exam: had to wake patient to speak with her upon entering the room. Patient crying and c/o pain after waking her Head exam: PRESENT: atraumatic GI/Abdominal exam: PRESENT: guarding, soft, tenderness - more on right than on left - Gynecological Exam Labia: normal, other - pelvic exam performed by Dr. Borges in ER Urethra: normal Introitus: normal Vagina: discharge, other Cervix: tender, discharge Cervix: tender Uterus: tender Adhexa: normal - per Dr. Borges, copious purulent discharge noted immediately with speculum placement. Seemed to be actively draining from uterus Result Impressions: Abdomen/Pelvis CT 09/02/17 08:12 IMPRESSION: TRACE FREE FLUID NOTED WITHIN THE RIGHT PERICOLIC GUTTER IS WELL IS WITHIN THE PELVIS WHICH IS NONSPECIFIC ING CAN BE SECONDARY TO ANY INFECTIOUS OR INFLAMMATORY PROCESS. OTHERWISE UNREMARKABLE CONTRAST-ENHANCED CT OF THE ABDOMEN AND PELVIS. Chest X-Ray 09/02/17 08:12 IMPRESSION: NO ACUTE RADIOGRAPHIC FINDING IN THE CHEST. Status: Image reviewed by me Assessment & Plan - Diagnosis (1) Pelvic inflammatory disease (PID) Is this a current diagnosis for this admission?: Yes (2) ADHD Qualifiers: Attention deficit-hyperactivity disorder type: unspecified Qualified Code(s ): F90.9 - Attention-deficit hyperactivity disorder, unspecified type Is this a current diagnosis for this admission?: Yes (3) Heroin abuse Is this a current diagnosis for this admission?: Yes (4) Smoker Is this a current diagnosis for this admission?: Yes - Time Time Spent: 30 to 50 Minutes Critical Time spent with patient: Less than 15 minutes Anticipated discharge: Home Within: within 36 hours - Inpatient Certification Based on my medical assessment, after consideration of the patient's comorbidities, presenting symptoms, or acuity I expect that the services needed warrant INPATIENT care.: Yes I certify that my determination is in accordance with my understanding of Medicare's requirements for reasonable and necessary INPATIENT services [42 CFR 412.3e].: Yes Medical Necessity: Need Close Monitoring Due to Risk of Patient Decompensation, Need For IV Fluids, Need for Pain Control, Need for IV Antibiotics, Risk of Complication if Not Cared For in Hospital - Plan Summary Plan Summary: will discharge home after 48 hours of antibiotics if remain normocardic and afebrile.
[2017-09-02] MEDS: MORPHINE SULFATE 10 MG/ML INJ IV PRN (15:30)
[2017-09-02] MEDS ORDERED: CEFOXITIN INJ 1 GM VIAL IV SCH (18:00)
[2017-09-02] MEDS ORDERED: DOXYCYCLINE HYCLATE INJ 100 MG VIAL IV SCH (18:00)
[2017-09-02] MEDS: DOXYCYCLINE HYCLATE 100 MG in DEXTROSE 5%-WATER 250 ML IV SCH (18:03)
[2017-09-02] MEDS: CEFOXITIN SODIUM 2 GM in DEXTROSE 5%-WATER 100 ML IV SCH (23:01)
[2017-09-03] MEDS: MORPHINE SULFATE 10 MG/ML INJ IV PRN ×5 (00:52→23:12)
[2017-09-03] MEDS: ZOLPIDEM TARTRATE 5 MG TABLET PO SCH ×2 (00:54→23:13)
[2017-09-03] MEDS: DOXYCYCLINE HYCLATE 100 MG in DEXTROSE 5%-WATER 250 ML IV SCH ×2 (05:41→18:45)
[2017-09-03] MEDS: CEFOXITIN SODIUM 2 GM in DEXTROSE 5%-WATER 100 ML IV SCH ×2 (11:10→23:16)
--- NOTE | 2017-09-03 15:29 | ER Document Report ---
ED General - General Chief Complaint: Abdominal Pain Stated Complaint: ABDOMINAL PAIN Time Seen by Provider: 09/03/17 15:26 Mode of Arrival: Ambulatory Information source: Patient Notes: 27 yr old female who was diagnosed with PID , admitted but left ama just 1 hour prior to arrival. pt notes she left because she was claustrophobic and wanted to smoke. TRAVEL OUTSIDE OF THE [place] IN LAST 30 DAYS: No - HPI Onset: Just prior to arrival Onset/Duration: Sudden Quality of pain: Burning Severity: Moderate Pain Level: 1 Associated symptoms: Other Exacerbated by: Denies Relieved by: Denies Similar symptoms previously: Yes Recently seen / treated by doctor: Yes - Related Data Allergies/Adverse Reactions: Choline Fenofibrate [From Trilipix] Allergy (Mild, Verified 09/03/17 15:35) rash oxcarbazepine [From Trileptal] Allergy (Verified 09/03/17 15:35) Past Medical History - Social History Smoking Status: Current Every Day Smoker Cigarette use (# per day): Yes Chew tobacco use (# tins/day): No Smoking Education Provided: Yes - Patient counselled regarding cessation for 4 minutes Family History: Reviewed & Not Pertinent Pulmonary Medical History: Reports: Hx Bronchitis Renal/ Medical History: Denies: Hx Peritoneal Dialysis Psychiatric Medical History: Reports: Hx Anxiety, Hx Bipolar Disorder - mood d/o , Hx Depression Past Surgical History: Reports: Hx Tonsillectomy - Immunizations Hx Diphtheria, Pertussis, Tetanus Vaccination: Yes Review of Systems - Review of Systems Notes: REVIEW OF SYSTEMS: CONSTITUTIONAL : Denies fever, chills, or sweats. Denies recent illness. EENT: Denies eye, ear, throat, or mouth pain or symptoms. Denies nasal or sinus congestion or discharge. Denies throat, tongue, or mouth swelling or difficulty swallowing. CARDIOVASCULAR: Denies chest pain. Denies palpitations or racing or irregular heart beat. Denies ankle edema. RESPIRATORY: Denies cough, cold, or chest congestion. Denies shortness of breath, difficulty breathing, or wheezing. GASTROINTESTINAL: admits to pelvic pain GENITOURINARY: Denies difficulty urinating, painful urination, burning, frequency, blood in urine, or discharge. FEMALE GENITOURINARY: Denies vaginal bleeding, heavy or abnormal periods, irregular periods. Denies vaginal discharge or odor. MUSCULOSKELETAL: Denies back or neck pain or stiffness. Denies joint pain or swelling. SKIN: Denies rash, lesions or sores. HEMATOLOGIC : Denies easy bruising or bleeding. LYMPHATIC: Denies swollen, enlarged glands. NEUROLOGICAL: Denies confusion or altered mental status. Denies passing out or loss of consciousness. Denies dizziness or lightheadedness. Denies headache. Denies weakness or paralysis or loss of use of either side. Denies problems with gait or speech. Denies sensory loss, numbness, or tingling. Denies seizures. PSYCHIATRIC: Denies anxiety or stress. Denies depression, suicidal ideation, or homicidal ideation. ALL OTHER SYSTEMS REVIEWED AND NEGATIVE. PHYSICAL EXAMINATION: GENERAL: Well-appearing, well-nourished and in no acute distress. HEAD: Atraumatic, normocephalic. EYES: Pupils equal round and reactive to light, extraocular movements intact, conjunctiva are normal. ENT: Nares patent, oropharynx clear without exudates. Moist mucous membranes. NECK: Normal range of motion, supple without lymphadenopathy LUNGS: Breath sounds clear to auscultation bilaterally and equal. No wheezes rales or rhonchi. HEART: tachycardic but without murmurs ABDOMEN: Soft, nontender, nondistended abdomen. No guarding, no rebound. No masses appreciated. Female : deferred Musculoskeletal: Normal range of motion, no pitting or edema. No cyanosis. NEUROLOGICAL: Cranial nerves grossly intact. Normal speech, normal gait. Normal sensory, motor exams PSYCH: Normal mood, normal affect. SKIN: Warm, Dry, normal turgor, no rashes or lesions noted. Dictation was performed using [employer] voice recognition software Physical Exam - Vital signs Vitals: Temp Pulse Resp BP Pulse Ox 101.3 F H 120 H 16 127/71 H 96 09/02/17 07:49 09/02/17 07:49 09/02/17 07:49 09/02/17 07:49 09/02/17 07:49 Course - Re-evaluation Re-evalutation: 09/03/17 18:[address] Purcell who will readmit the patient to his service for PID - Vital Signs Vital signs: Temp Pulse Resp BP Pulse Ox 97.5 F 104 H 15 119/76 100 09/03/17 23:49 09/03/17 23:49 09/03/17 23:49 09/03/17 23:49 09/03/17 23:49 - Laboratory Result Diagrams: 09/02/17 08:53 09/02/17 08:53 Laboratory results interpreted by me: 09/02/17 09/02/17 09/02/17 08:53 09:24 09:24 WBC 15.4 H Hgb 11.8 L Hct 34.5 L RDW 14.9 H Seg Neutrophils % 80.4 H Absolute Neutrophils 12.4 H Urine Blood MODERATE H Urine Urobilinogen 2.0 H Ur Leukocyte Esterase MODERATE H Chlamydia DNA (PCR) DETECTED H N.gonorrhoeae DNA (PCR) DETECTED H Discharge - Discharge Clinical Impression: Pelvic inflammatory disease (PID) Condition: Good Disposition: ADMITTED INPATIENT Admitting Provider: [facility] Admitted: Medical Floor - 4th floor please
[2017-09-03] MEDS ORDERED: DOXYCYCLINE HYCLATE INJ 100 MG VIAL ONE (18:32)
[2017-09-03] MEDS ORDERED: CEFOXITIN INJ 1 GM VIAL ONE (22:09)
[2017-09-04] MEDS ORDERED: LORAZEPAM INJ 2 MG/1 ML VIAL IV PRN (01:33)
[2017-09-04] MEDS: DOXYCYCLINE HYCLATE 100 MG in DEXTROSE 5%-WATER 250 ML IV SCH (06:00)
[2017-09-04] MEDS: MORPHINE SULFATE 10 MG/ML INJ IV PRN (06:00)
--- NOTE | 2017-09-04 09:11 | PDOC PROGRESS REPORT ---
Subjective Progress Note for:: 09/04/17 Subjective:: indicates she is feeling better. Patient still very somnolent. Nurse indicates that she started to experience withdrawals last night and that she was given ativan ordered by the hospitalist. Reason For Visit: PELVIC INFLAMMATORY DISEASE,TACHYCARDIA, Physical Exam - Physical Exam Vital Signs: Temp Pulse Resp BP Pulse Ox 97.5 F 104 H 15 119/76 100 09/03/17 23:49 09/03/17 23:49 09/03/17 23:49 09/03/17 23:49 09/03/17 23:49 Intake & Output 09/03/17 09/04/17 09/05/17 06:59 06:59 06:59 Intake Total 336 2243 Balance 336 2243 Weight 74.7 kg 74.3 kg General appearance: PRESENT: no acute distress, cooperative, well-developed, well-nourished Head exam: PRESENT: atraumatic GI/Abdominal exam: PRESENT: soft - nontender to palpation. nondistended. no guarding present today - Gynecological Exam Labia: normal, other - pelvic exam performed by Dr. Borges in ER Urethra: normal Introitus: normal Vagina: discharge, other Cervix: tender, discharge Cervix: tender Uterus: tender Adhexa: normal - per Dr. Borges, copious purulent discharge noted immediately with speculum placement. Seemed to be actively draining from uterus Result Impressions: Abdomen/Pelvis CT 09/02/17 08:12 IMPRESSION: TRACE FREE FLUID NOTED WITHIN THE RIGHT PERICOLIC GUTTER IS WELL IS WITHIN THE PELVIS WHICH IS NONSPECIFIC ING CAN BE SECONDARY TO ANY INFECTIOUS OR INFLAMMATORY PROCESS. OTHERWISE UNREMARKABLE CONTRAST-ENHANCED CT OF THE ABDOMEN AND PELVIS. Chest X-Ray 09/02/17 08:12 IMPRESSION: NO ACUTE RADIOGRAPHIC FINDING IN THE CHEST. Assessment & Plan - Diagnosis (1) Pelvic inflammatory disease (PID) Is this a current diagnosis for this admission?: Yes (2) ADHD Qualifiers: Attention deficit-hyperactivity disorder type: unspecified Qualified Code(s ): F90.9 - Attention-deficit hyperactivity disorder, unspecified type Is this a current diagnosis for this admission?: Yes (3) Heroin abuse Is this a current diagnosis for this admission?: Yes (4) Smoker Is this a current diagnosis for this admission?: Yes - Plan Summary Plan Summary: am ordering a cbc today. If WBC is decreased will discharge patient home with oral antibiotics. Discharge planning has been notified and if patient is willing, will give information for resources to help with opiod addiction so that she can stop using.
[2017-09-04] MEDS: CEFOXITIN SODIUM 2 GM in DEXTROSE 5%-WATER 100 ML IV SCH (10:30)
[2017-09-04 10:38] LABS: HEMATOCRIT 38.4 % (36.0-47.0); HEMOGLOBIN 12.9 g/dL (12.0-15.5); MEAN CORPUSCULAR HEMOGLOBIN 27.9 pg (27.0-33.4); MEAN CORPUSCULAR HGB CONC 33.6 g/dL (32.0-36.0); MEAN CORPUSCULAR VOLUME 83 fl (80-97); PLATELET COUNT 325 10^3/uL (150-450); RED BLOOD COUNT 4.63 10^6/uL (3.72-5.28); RED CELL DISTRIBUTION WIDTH 15.1 % (11.5-14.0); WHITE BLOOD COUNT 8.3 10^3/uL (4.0-10.5)
[2017-09-04 11:09] LABS: BASOPHILS % (MANUAL) 0 % (0-2); EOSINOPHILS % (MANUAL) 3 % (0-6); TOTAL CELLS COUNTED 100
[2017-09-04 11:21] LABS: PLATELET COMMENT ADEQUATE; RBC MORPHOLOGY COMMENT NORMO-CYTIC/CHROMIC
[2017-09-04 11:22] LABS: TOXIC GRANULATION 2+; TOXIC VACUOLATION PRESENT
[2017-09-04 11:41] LABS: ABSOLUTE LYMPHOCYTES# (MANUAL) 4.3 10^3/uL (0.5-4.7); ABSOLUTE MONOCYTES # (MANUAL) 0.4 10^3/uL (0.1-1.4); ABSOLUTE NEUTROPHILS# (MANUAL) 3.3 10^3/uL (1.7-8.2); LYMPHOCYTES % (MANUAL) 51 % (13-45); METAMYELOCYTES % (MANUAL) 2 % (0); MONOCYTES % (MANUAL) 5 % (3-13); SEGMENTED NEUTROPHILS % (MAN) 38 % (42-78)
--- NOTE | 2017-09-04 15:44 | PDOC DISCHARGE SUMMARY ---
General - Admit/Disc Date/PCP Admission Date/Primary Care Provider: 09/02/17 10:54 Discharge Date: 09/04/17 - Discharge Diagnosis (1) Pelvic inflammatory disease (PID) Is this a current diagnosis for this admission?: Yes (2) ADHD Is this a current diagnosis for this admission?: Yes (3) Heroin abuse Is this a current diagnosis for this admission?: Yes (4) Smoker Is this a current diagnosis for this admission?: Yes - Additional Information Home Medications: No Home Medications 09/02/17 History of Present Illness History of Present Illness: AILEEN DIAS is a 27 year old female here with c/o lower and upper abdominal pain that started few day ago. Indicates feeling tired and weak. She describes the pain as severe. Denies n/v. On arrival to ER was found to have tachycardia of 120 bpm and fever of 101.3. Hospital Course Hospital Course: has responded well to IV antibiotics. Has been given information for opiod addiction treatment. Inidcates that she is planning to go to [place] where they take her . Physical Exam - Physical Exam Vital Signs: Temp Pulse Resp BP Pulse Ox 97.5 F 104 H 15 119/76 100 09/03/17 23:49 09/03/17 23:49 09/03/17 23:49 09/03/17 23:49 09/03/17 23:49 Intake & Output 09/03/17 09/04/17 09/05/17 06:59 06:59 06:59 Intake Total 336 2243 Balance 336 2243 Weight 74.7 kg 74.3 kg General appearance: PRESENT: no acute distress, cooperative, well-developed, well-nourished GI/Abdominal exam: PRESENT: soft - nontender, nondistended - Gynecological Exam Labia: normal, other - pelvic exam performed by Dr. Borges in ER Urethra: normal Introitus: normal Vagina: discharge, other Cervix: tender, discharge Cervix: tender Uterus: tender Adhexa: normal - per Dr. Borges, copious purulent discharge noted immediately with speculum placement. Seemed to be actively draining from uterus Result Laboratory Results: 09/04/17 10:17 09/04/17 10:17 WBC 8.3 RBC 4.63 Hgb 12.9 Hct 38.4 MCV 83 MCH 27.9 MCHC 33.6 RDW 15.1 H Plt Count 325 Seg Neutrophils % Not Reportable Lymphocytes % Not Reportable Monocytes % Not Reportable Eosinophils % Not Reportable Basophils % Not Reportable Absolute Neutrophils Not Reportable Absolute Lymphocytes Not Reportable Absolute Monocytes Not Reportable Absolute Eosinophils Not Reportable Absolute Basophils Not Reportable Impressions: Abdomen/Pelvis CT 09/02/17 08:12 IMPRESSION: TRACE FREE FLUID NOTED WITHIN THE RIGHT PERICOLIC GUTTER IS WELL IS WITHIN THE PELVIS WHICH IS NONSPECIFIC ING CAN BE SECONDARY TO ANY INFECTIOUS OR INFLAMMATORY PROCESS. OTHERWISE UNREMARKABLE CONTRAST-ENHANCED CT OF THE ABDOMEN AND PELVIS. Chest X-Ray 09/02/17 08:12 IMPRESSION: NO ACUTE RADIOGRAPHIC FINDING IN THE CHEST. Plan Discharge Plan: discharge home with po antibiotics and diflucan script to use PRN for yeast. Time Spent: Less than 30 Minutes
[2017-09-04 15:56] VITALS: BP 119/67
== END 2017-09-04 16:37 | disposition home or self-care (01) | DRG 759 ==
LOC: ER 07:43 → EH 10:54 → 4S 15:11 → UNDODISIN 09-03 13:52 → EH 09-03 15:57 → 5 09-03 17:20
PROVIDERS: ADMIT Obstetrics & Gynecology; ATTEND Obstetrics & Gynecology
DX: N73.9 Female pelvic inflammatory disease, unspecified (principal); F90.1 Attention-deficit hyperactivity disorder, predominantly hyperactive type; F11.10 Opioid abuse, uncomplicated; F31.9 Bipolar disorder, unspecified; F41.9 Anxiety disorder, unspecified; F17.210 Nicotine dependence, cigarettes, uncomplicated; Z88.8 Allergy status to other drugs, medicaments and biological substances
CPT/HCPCS: 36415; 71045; 74177; 80053; 81001; 81025; 83605; 85025; 86592; 87040; 87210; 87491; 87591; 96361; 96365; 96375; 96376; 99285; 99406; J0694; J0696; J1885; J2060; J2270; J2550; J3490; J7030; J7060; S0119

== ENCOUNTER 2017-11-15 18:29 | Inpatient (IN) | payer OTHER ==
[2017-11-15] MEDS ORDERED: KETOROLAC TROMETHAMINE INJ/PF 30 MG/1 ML SDV IV ONE ×2 (19:04→23:15)
[2017-11-15] MEDS ORDERED: ONDANSETRON HCL INJ/PF 4 MG/2 ML SDV IV ONE (19:04)
[2017-11-15] MEDS ORDERED: NORMAL SALINE 1000 ML 1,000 ML IV ONE (19:04)
--- NOTE | 2017-11-15 19:08 | ER Document Report ---
ED Medical Screen (RME) - General Chief Complaint: Abdominal Pain Stated Complaint: ABDOMINAL/PELVIC PAIN Time Seen by Provider: 11/15/17 19:01 Notes: 27 years old female with a history of abuse presents today with right lower quadrant abdominal pain associated with nausea, denies any vaginal discharge denies any dysuria frequency urgency. Denies any fever chills or other constitutional symptoms. According to the pain is sharp and severe in nature. Since this morning. TRAVEL OUTSIDE OF THE [place] IN LAST 30 DAYS: No - Related Data Allergies/Adverse Reactions: Choline Fenofibrate [From Trilipix] Allergy (Mild, Verified 09/03/17 15:35) rash oxcarbazepine [From Trileptal] Allergy (Verified 09/03/17 15:35) Past Medical History - Social History Chew tobacco use (# tins/day): No Frequency of alcohol use: None Drug Abuse: None Pulmonary Medical History: Reports: Hx Bronchitis Renal/ Medical History: Denies: Hx Peritoneal Dialysis Psychiatric Medical History: Reports: Hx Anxiety, Hx Bipolar Disorder - mood d/o , Hx Depression Past Surgical History: Reports: Hx Tonsillectomy - Immunizations Hx Diphtheria, Pertussis, Tetanus Vaccination: Yes History of Influenza Vaccine for 01/2017 - 06/2017 Season: Unknown Physical Exam - Vital signs Vitals: Temp Pulse Resp BP Pulse Ox 100.0 F 103 H 20 125/71 99 11/15/17 18:33 11/15/17 18:33 11/15/17 18:33 11/15/17 18:33 11/15/17 18:33 Course - Vital Signs Vital signs: Temp Pulse Resp BP Pulse Ox 100.0 F 103 H 20 125/71 99 11/15/17 18:33 11/15/17 18:33 11/15/17 18:33 11/15/17 18:33 11/15/17 18:33
[2017-11-15 20:09] LABS: HEMOGLOBIN 12.9 g/dL (12.0-15.5); MEAN CORPUSCULAR HEMOGLOBIN 27.8 pg (27.0-33.4); MEAN CORPUSCULAR HGB CONC 33.2 g/dL (32.0-36.0); MEAN CORPUSCULAR VOLUME 84 fl (80-97); PLATELET COUNT 231 10^3/uL (150-450); RED BLOOD COUNT 4.66 10^6/uL (3.72-5.28); RED CELL DISTRIBUTION WIDTH 16.5 % (11.5-14.0)
[2017-11-15] MEDS ORDERED: PROMETHAZINE HCL INJ 25 MG/1 ML VIAL IM ONE (20:17)
[2017-11-15 20:22] LABS: ABSOLUTE LYMPHOCYTES# (MANUAL) 2.2 10^3/uL (0.5-4.7); ABSOLUTE MONOCYTES # (MANUAL) 0.8 10^3/uL (0.1-1.4); BAND NEUTROPHILS % (MANUAL) 3 % (3-5); BASOPHILS % (MANUAL) 0 % (0-2); EOSINOPHILS % (MANUAL) 0 % (0-6); LYMPHOCYTES % (MANUAL) 11 % (13-45); MONOCYTES % (MANUAL) 4 % (3-13); SEGMENTED NEUTROPHILS % (MAN) 82 % (42-78); TOTAL CELLS COUNTED 100
[2017-11-15 20:24] LABS: ANISOCYTOSIS 1+; OVALOCYTES SLIGHT; POLYCHROMASIA SLIGHT; TOXIC VACUOLATION PRESENT
--- NOTE | 2017-11-15 20:24 | ER Document Report ---
ED GI/ - General Chief Complaint: Abdominal Pain Stated Complaint: ABDOMINAL/PELVIC PAIN Time Seen by Provider: 11/15/17 19:01 Notes: Patient is a 27-year-old female who comes emergency department for chief complaint of lower abdominal pain, she states pain is on both sides, she states that she has had nausea and she thinks she was running a fever earlier today. She denies vomiting, flank pain. Uncertain of vaginal discharge, denies vaginal bleeding. 2 months ago she was hospitalized for PID. Past medical history includes bipolar disorder, heroin abuse, and smoking. She has been sexually active with the same partner as previously. TRAVEL OUTSIDE OF THE [place] IN LAST 30 DAYS: No - Related Data Allergies/Adverse Reactions: Choline Fenofibrate [From Trilipix] Allergy (Mild, Verified 09/03/17 15:35) rash oxcarbazepine [From Trileptal] Allergy (Verified 09/03/17 15:35) Past Medical History - General Information source: Patient - Social History Smoking Status: Current Every Day Smoker Chew tobacco use (# tins/day): No Drug Abuse: Heroin Lives with: Friend Family History: Reviewed & Not Pertinent Patient has suicidal ideation: No Patient has homicidal ideation: No Pulmonary Medical History: Reports: Hx Bronchitis Renal/ Medical History: Reports: Hx Pelvic Inflammatory Disease. Denies: Hx Peritoneal Dialysis Psychiatric Medical History: Reports: Hx Anxiety, Hx Bipolar Disorder - mood d/o , Hx Depression Past Surgical History: Reports: Hx Tonsillectomy - Immunizations Hx Diphtheria, Pertussis, Tetanus Vaccination: Yes Review of Systems - Review of Systems Constitutional: See HPI EENT: No symptoms reported Cardiovascular: No symptoms reported Respiratory: No symptoms reported Gastrointestinal: See HPI Genitourinary: See HPI Female Genitourinary: See HPI Musculoskeletal: No symptoms reported Skin: No symptoms reported Hematologic/Lymphatic: No symptoms reported Neurological/Psychological: No symptoms reported Physical Exam - Vital signs Vitals: Temp Pulse Resp BP Pulse Ox 100.0 F 103 H 20 125/71 99 11/15/17 18:33 11/15/17 18:33 11/15/17 18:33 11/15/17 18:33 11/15/17 18:33 - Notes Notes: GENERAL: Sleeping, easily aroused, ill-appearing HEAD: Normocephalic, atraumatic. EYES: Pupils equal, round, and reactive to light. Extraocular movements intact. ENT: Oral mucosa moist, tongue midline. [Nares patent, no nasal septal hematoma , TM's intact.] NECK: Full range of motion. Supple. Trachea midline. LUNGS: Clear to auscultation bilaterally, no wheezes, rales, or rhonchi. No respiratory distress. HEART: Borderline tachycardia, no murmur. ABDOMEN: Upper abdomen is soft and benign. Tenderness with guarding in the general lower abdomen on both sides with crying response. Difficult to get specific exam because of patient tenderness. GENITOURINARY: Cervical motion tenderness noted, purulent discharge from the cervix noted, external exam with no concerning findings. Chrissy RN present during exam. EXTREMITIES: Moves all 4 extremities spontaneously. No edema, normal radial and dorsalis pedis pulses bilaterally. No cyanosis. BACK: no cervical, thoracic, lumbar midline tenderness. No saddle anesthesia, normal distal neurovascular exam. No CVA tenderness. NEUROLOGICAL: Alert and oriented x3. Normal speech. [cranial nerves II through XII grossly intact]. PSYCH: Mildly anxious SKIN: Track jones and healed lesions noted over the body. Course - Re-evaluation Re-evalutation: Patient ill-appearing, temperature of 100, borderline tachycardia, very tender in the general pelvic area, however her remaining exam is unremarkable with no respiratory symptoms, no new murmur noted, and she is oriented. Purulent discharge noted from the cervix on examination, positive cervical motion tenderness, suggestive of PID as a possible source of sepsis. Leukocytosis at greater than 20,000, elevated neutrophils without bandemia. Lactic acid is not elevated. Patient is not hypotensive. Tachycardia resolved with IM Phenergan, Toradol, and IV fluids. Given Rocephin, will also give doxycycline and perform ultrasound. This was discussed with patient in detail. Urinalysis unremarkable, test is negative, positive for gonorrhea. Ultrasound showing 6.5 cm mass in the right pelvic region concerning for tubo- ovarian abscess given patient's clinical presentation and workup. Discussed with Dr. Purcell, TELEVISION SCRIPT WRITER, patient will be admitted to the hospital for suspected tubo-ovarian abscess and possible sepsis. Patient states agreement with this plan. - Vital Signs Vital signs: Temp Pulse Resp BP Pulse Ox 99.0 F 103 H 18 119/65 99 11/16/17 03:02 11/16/17 03:02 11/16/17 03:02 11/16/17 03:02 11/16/17 03:02 - Laboratory Result Diagrams: 11/15/17 19:52 11/15/17 22:06 Laboratory results interpreted by me: 11/15/17 11/15/17 11/15/17 19:52 20:30 21:20 WBC 20.0 H RDW 16.5 H Seg Neuts % (Manual) 82 H Lymphocytes % (Manual) 11 L Abs Neuts (Manual) 17.0 H BUN Urine Blood MODERATE H Ur Leukocyte Esterase SMALL H N.gonorrhoeae DNA (PCR) DETECTED H 11/15/17 22:06 WBC RDW Seg Neuts % (Manual) Lymphocytes % (Manual) Abs Neuts (Manual) BUN 6 L Urine Blood Ur Leukocyte Esterase N.gonorrhoeae DNA (PCR) Discharge - Discharge Clinical Impression: Tubo-ovarian abscess, PID (acute pelvic inflammatory disease) Leukocytosis Qualifiers: Leukocytosis type: unspecified Qualified Code(s): D72.829 - Elevated white blood cell count, unspecified Condition: Stable Disposition: ADMITTED INPATIENT Admitting Provider: [facility] Admitted: Labor and Delivery
[2017-11-15 20:25] LABS: PLATELET COMMENT ADEQUATE; POIKILOCYTOSIS SLIGHT
[2017-11-15 21:05] LABS: APPEARANCE,URINE CLEAR; BILIRUBIN,URINE NEGATIVE (NEGATIVE); COLOR,URINE YELLOW; GLUCOSE, URINE NEGATIVE (NEGATIVE); KETONES,URINE NEGATIVE (NEGATIVE); LEUKOCYTE ESTERASE,URINE SMALL (NEGATIVE); NITRITE,URINE NEGATIVE (NEGATIVE); PROTEIN,URINE NEGATIVE (NEGATIVE); URINE SPECIFIC GRAVITY 1.015; UROBILINOGEN,URINE NEGATIVE mg/dL (<2.0)
[2017-11-15 21:18] LABS: URINE AMPHETAMINES SCREEN UNCONFIRMED POSITIVE; URINE BARBITURATES SCREEN NEGATIVE; URINE BENZODIAZEPINES SCREEN NEGATIVE; URINE COCAINE SCREEN UNCONFIRMED POSITIVE; URINE MARIJUANA (THC) SCREEN UNCONFIRMED POSITIVE; URINE METHADONE SCREEN NEGATIVE; URINE PHENCYCLIDINE SCREEN NEGATIVE
[2017-11-15] MEDS ORDERED: CEFTRIAXONE 1 GM/D5W RTU 1 GM/50 ML RTUPB IV ONE (21:21)
[2017-11-15 21:46] LABS: T.VAGINALIS (WET MOUNT) NO TRICHOMONAS SEEN; YEAST (WET MOUNT) NO YEAST SEEN
[2017-11-15 21:47] LABS: BACTERIA (WET MOUNT) 4+ BACTERIA SEEN; EPITHELIALS (WET MOUNT) 3+ EPITHELIALS SEEN; RBCS (WET MOUNT) 1+ RBCS SEEN; WBCS (WET MOUNT) 3+ WBCS SEEN
[2017-11-15] MEDS ORDERED: DOXYCYCLINE HYCLATE INJ 100 MG VIAL IV ONE (21:50)
[2017-11-15] MEDS ORDERED: METRONIDAZOLE 500 MG TABLET PO ONE (21:50)
[2017-11-15 22:36] LABS: VENOUS BLOOD BASE EXCESS 0.5 mmol/L; VENOUS BLOOD HCO3 27.6 mmol/L (20-32); VENOUS BLOOD PCO2 54.6 mmHg (35-63); VENOUS BLOOD PH 7.32 (7.30-7.42)
[2017-11-15 22:53] LABS: ALANINE AMINOTRANSFERASE 21 U/L (9-52); ALBUMIN 4.5 g/dL (3.5-5.0); ALKALINE PHOSPHATASE 107 U/L (38-126); ANION GAP 13 (5-19); ASPARTATE AMINO TRANSFERASE 24 U/L (14-36); BILIRUBIN,DIRECT 0.4 mg/dL (0.0-0.4); BILIRUBIN,TOTAL 0.9 mg/dL (0.2-1.3); BLOOD UREA NITROGEN 6 mg/dL (7-20); CALCIUM 9.3 mg/dL (8.4-10.2); CARBON DIOXIDE 24 mmol/L (22-30); CHLORIDE 103 mmol/L (98-107); GLUCOSE 90 mg/dL (75-110); LIPASE 31.3 U/L (23-300); SODIUM 140.2 mmol/L (137-145); TOTAL PROTEIN 7.7 g/dL (6.3-8.2)
[2017-11-15] MEDS ORDERED: CEFTRIAXONE INJ 1000 MG VIAL IV ONE ×2 (22:56→23:15)
[2017-11-15 23:09] LABS: CHLAM PCR NOT DETECTED (NOT DETECT); GON PCR DETECTED (NOT DETECT)
--- NOTE | 2017-11-16 00:33 | RADIOLOGY REPORT (SQ) ---
EXAM DESCRIPTION: US PELVIS COMPLETED DATE/TME: 11/15/2017 21:49 CLINICAL HISTORY: 27 years Female, sharp pelvic pain; eval ovaries; ?abscess Comparison: 2..18 Technique: Transvaginal. LIMITATIONS: None. FINDINGS: 6.5 x 5.3 x 3.6 cm complex mass of the right ovarian fossa, vascularity present, including a tubular cystic component measuring 1.4 cm in diameter. Small-moderate free fluid. 10-cm uterus, 1.1-cm endometrial stripe thickness, 3.5-cm cervical length, and 3.8-cm left ovary including a 2.8 cm dominant cyst (for which no folllowup needed) appear normal in size, shape, echotexture, and vascularity. IMPRESSION: Complex 6.5 cm mass component of the right paracentral pelvis probably involves a small hydrosalpinx. Small free fluid. Differential diagnosis includes pelvic inflammatory disease, hemorrhagic cyst, endometrioma, and neoplasm. Recommend contrast CT/ultrasound evaluation/surveillance including at 6-8 weeks following clinically warranted therapy.
[2017-11-16] MEDS ORDERED: CEFOXITIN 1 GM/D5W RTU 1 GM/50 ML RTUPB IV ONE (01:45)
[2017-11-16] MEDS ORDERED: ACETAMINOPHEN 325 MG TABLET PO PRN (03:00)
[2017-11-16] MEDS ORDERED: CEFOXITIN INJ 1 GM VIAL ONE (03:53)
--- NOTE | 2017-11-16 07:42 | PDOC H&P ---
History of Present Illness Admission Date/PCP: 11/16/17 01:14 Patient complains of: Right lower quadrant pain History of Present Illness: AILEEN DIAS is a 27 year old female She is admitted with a TOA on the right and positive GC. Past Medical History Pulmonary Medical History: Reports: Bronchitis Psychiatric Medical History: Reports: Bipolar Disorder - mood d/o, Depression Past Surgical History Past Surgical History: Reports: Tonsillectomy Social History Lives with: Friend Smoking Status: Current Every Day Smoker Frequency of Alcohol Use: Occasional Hx Recreational Drug Use: Yes Drugs: Heroin Family History Family History: Reviewed & Not Pertinent Parental Family History Reviewed: Yes Children Family History Reviewed: Yes Sibling(s) Family History Reviewed.: Yes Medication/Allergy Allergies/Adverse Reactions: Choline Fenofibrate [From Trilipix] Allergy (Mild, Verified 09/03/17 15:35) rash oxcarbazepine [From Trileptal] Allergy (Verified 09/03/17 15:35) Physical Exam - Physical Exam Vital Signs: Temp Pulse Resp BP Pulse Ox 99.0 F 103 H 18 119/65 99 11/16/17 03:02 11/16/17 03:02 11/16/17 03:02 11/16/17 03:02 11/16/17 03:02 General appearance: PRESENT: disheveled Head exam: PRESENT: atraumatic, normocephalic Teeth exam: PRESENT: dental caries Cardiovascular exam: PRESENT: RRR. ABSENT: diastolic murmur, rubs, systolic murmur Pulses: PRESENT: normal dorsalis pedis pul, +2 pedal pulses bilateral Vascular exam: PRESENT: normal capillary refill GI/Abdominal exam: PRESENT: tenderness - tender Extremities exam: PRESENT: full ROM. ABSENT: calf tenderness, clubbing, pedal edema Skin exam: PRESENT: dry, intact, warm. ABSENT: cyanosis, rash - Gynecological Exam Cervix: discharge - Er reports pus from the cervix Result Impressions: Transvaginal US 11/15/17 21:49 IMPRESSION: Complex 6.5 cm mass component of the right paracentral pelvis probably involves a small hydrosalpinx. Small free fluid. Differential diagnosis includes pelvic inflammatory disease, hemorrhagic cyst, endometrioma, and neoplasm. Recommend contrast CT/ultrasound evaluation/surveillance including at 6-8 weeks following clinically warranted therapy. Assessment & Plan - Diagnosis (1) Leukocytosis Qualifiers: Leukocytosis type: unspecified Qualified Code(s): D72.829 - Elevated white blood cell count, unspecified Is this a current diagnosis for this admission?: Yes (2) PID (acute pelvic inflammatory disease) Is this a current diagnosis for this admission?: Yes (3) Tubo-ovarian abscess Is this a current diagnosis for this admission?: Yes - Time Time Spent: 30 to 50 Minutes - Plan Summary Plan Summary: Admit for IV antibiotics
[2017-11-16 07:50] LABS: HEMATOCRIT 35.8 % (36.0-47.0); HEMOGLOBIN 12.1 g/dL (12.0-15.5); MEAN CORPUSCULAR HGB CONC 33.9 g/dL (32.0-36.0); MEAN CORPUSCULAR VOLUME 83 fl (80-97); PLATELET COUNT 261 10^3/uL (150-450); RED BLOOD COUNT 4.33 10^6/uL (3.72-5.28); RED CELL DISTRIBUTION WIDTH 16.9 % (11.5-14.0); WHITE BLOOD COUNT 16.5 10^3/uL (4.0-10.5)
[2017-11-16] MEDS ORDERED: CEFOXITIN 1 GM/D5W RTU 1 GM/50 ML RTUPB IV SCH (09:00)
[2017-11-16] MEDS ORDERED: DOXYCYCLINE HYCLATE 100 MG in DEXTROSE 5%-WATER 250 ML IV SCH (10:00)
[2017-11-16] MEDS ORDERED: ACETAMINOPHEN WITH CODEINE #3 TABLET ONE (10:54)
--- NOTE | 2017-11-16 12:01 | RADIOLOGY REPORT (SQ) ---
EXAM DESCRIPTION: PICC INSERTION; FLUORO/CV PLACEMENT; U/S GUIDE FOR VASCULAR ACCESS COMPLETED DATE/TIME: 11/16/2017 11:52 am REASON FOR STUDY: need iv access; IV ACCESS COMPARISON: AP chest 09/02/2017 Pelvic ultrasound 11/15/2017 FLUOROSCOPY TIME: 18 seconds 1 ultrasound and 1 digital chest fluoro images saved to PACS. TECHNIQUE: Fluoroscopic and ultrasound guided PICC placement. LIMITATIONS: None. PROCEDURE: After written consent and assessment were obtained, the patient was brought into the fluo roscopy room and place supine on the table. Ultrasound evaluation of potential access sites were perf ormed. After successfully identifying a patent left basilic vein, the left arm was prepped and draped in a sterile fashion along with the ultrasound probe. The entry site was anesthetized with 1% lidoca ine. A 21 gauge 7 cm needle was advanced through the skin and into the basilic vein under live ultras ound guidance. An ultrasound image was saved to PACS confirming access site. A .018 guide wire was then inserted through the needle and into the venous system. The needle was the removed and an 11 ld de scalpel was used to make a 1cm skin incision. A 5 fr peel-away sheath was advanced over the wire and into the venous system. A measurement was then made using the existing wire and live fluoroscopic guidance. The wire was then removed and the trimmed. The PICC was advanced through the peel-away she ath and into the venous system. The peel-away sheath was removed and the catheter was adhered to the patients arm with a stat lock. The catheter was then aspirated and flushed and a sterile bandage was placed over the access site. A fluoroscopic spot image was saved to PACS confirming the catheter tip within the superior vena cava. IMPRESSION: SUCCESSFUL PLACEMENT OF A 5 FR DUAL LUMEN 38 CM PICC IN THE LEFT BASILIC VEIN. COMMENT: Patient medication list reviewed: Yes- Quality ID# [id number]:Eligible professional attests to doc umenting in the medical record they obtained, updated, or reviewed the patient's current medications. . Quality ID 145: Final reports for procedures using fluoroscopy that document radiation exposure evelyn sudhir, or exposure time and number of fluorographic images (if radiation exposure indices are not avail able) Quality ID #76: The patient was prepped and draped using maximum sterile barrier technique including cap, mask, sterile gown, sterile gloves, a large sterile sheet, hand hygiene, and 2% Chlorhexidine fo r cutaneous antisepsis. When ultrasound is used, sterile ultrasound techniques are followed requiring sterile gel and sterile probes. TECHNICAL DOCUMENTATION: JOB ID: [id number] [employer]- All Rights Reserved rev-08/18 Reading location - IP/workstation name: [facility]
[2017-11-16] MEDS ORDERED: NORMAL SALINE 10 ML SDV (AFTER EACH USE) IV PRN (12:09)
[2017-11-16] MEDS: RINGERS SOLUTION,LACTATED 1,000 ML IV PRN (12:39)
[2017-11-16] MEDS: CEFOXITIN 1 GM/D5W RTU 1 GM/50 ML RTUPB IV SCH ×2 (12:47→18:44)
[2017-11-16] MEDS ORDERED: ACETAMINOPHEN WITH CODEINE #3 TABLET PO PRN (13:48)
[2017-11-16] MEDS: ACETAMINOPHEN WITH CODEINE #3 TABLET PO PRN ×2 (15:15→21:27)
[2017-11-16] MEDS: DOXYCYCLINE HYCLATE 100 MG in DEXTROSE 5%-WATER 250 ML IV SCH (15:23)
[2017-11-16] MEDS: NORMAL SALINE 10 ML SDV (SCHEDULED) IV SCH (21:29)
[2017-11-17] MEDS: CEFOXITIN 1 GM/D5W RTU 1 GM/50 ML RTUPB IV SCH ×4 (00:50→18:23)
[2017-11-17] MEDS: RINGERS SOLUTION,LACTATED 1,000 ML IV PRN ×2 (00:51→15:37)
[2017-11-17] MEDS: DOXYCYCLINE HYCLATE 100 MG in DEXTROSE 5%-WATER 250 ML IV SCH ×2 (04:12→15:32)
[2017-11-17] MEDS: ACETAMINOPHEN WITH CODEINE #3 TABLET PO PRN ×3 (04:21→16:49)
--- NOTE | 2017-11-17 12:26 | PDOC PROGRESS REPORT ---
Subjective Progress Note for:: 11/17/17 Subjective:: not ambulating well. Is wanting to go outside to smoke however has a PICC line and not considered ideal to go outside with. Seems to be responding somewhat to the antibiotics. Reason For Visit: LEUKOCYTOSIS Physical Exam - Physical Exam Vital Signs: Temp Pulse Resp BP Pulse Ox 98.7 F 94 18 114/64 98 11/17/17 11:39 11/17/17 11:39 11/17/17 11:39 11/17/17 11:39 11/17/17 11:39 Intake & Output 11/16/17 11/17/17 11/18/17 06:59 06:59 06:59 Intake Total 1925 Balance 1925 Weight 78.2 kg 78.2 kg General appearance: PRESENT: no acute distress, cooperative Head exam: PRESENT: atraumatic GI/Abdominal exam: PRESENT: soft, tenderness - Gynecological Exam Cervix: discharge - Er reports pus from the cervix Result Laboratory Results: 11/16/17 07:10 Impressions: Transvaginal US 11/15/17 21:49 IMPRESSION: Complex 6.5 cm mass component of the right paracentral pelvis probably involves a small hydrosalpinx. Small free fluid. Differential diagnosis includes pelvic inflammatory disease, hemorrhagic cyst, endometrioma, and neoplasm. Recommend contrast CT/ultrasound evaluation/surveillance including at 6-8 weeks following clinically warranted therapy. Guidance Fluoroscopy 11/16/17 00:00 IMPRESSION: SUCCESSFUL PLACEMENT OF A 5 FR DUAL LUMEN 38 CM PICC IN THE LEFT BASILIC VEIN. Interventional Vascular Procedure 11/16/17 00:00 IMPRESSION: SUCCESSFUL PLACEMENT OF A 5 FR DUAL LUMEN 38 CM PICC IN THE LEFT BASILIC VEIN. PICC Line Insertion 11/16/17 00:00 IMPRESSION: SUCCESSFUL PLACEMENT OF A 5 FR DUAL LUMEN 38 CM PICC IN THE LEFT BASILIC VEIN. Assessment & Plan - Diagnosis (1) Leukocytosis Qualifiers: Leukocytosis type: unspecified Qualified Code(s): D72.829 - Elevated white blood cell count, unspecified Is this a current diagnosis for this admission?: Yes (2) PID (acute pelvic inflammatory disease) Is this a current diagnosis for this admission?: Yes (3) Tubo-ovarian abscess Is this a current diagnosis for this admission?: Yes (4) Gonorrhea Is this a current diagnosis for this admission?: Yes - Time Time Spent with patient: Less than 15 minutes Smoking Cessation Education: 3 to 10 minutes Anticipated discharge: Home Within: within 48 hours - Inpatient Certification Based on my medical assessment, after consideration of the patient's comorbidities, presenting symptoms, or acuity I expect that the services needed warrant INPATIENT care.: Yes I certify that my determination is in accordance with my understanding of Medicare's requirements for reasonable and necessary INPATIENT services [42 CFR 412.3e].: Yes Medical Necessity: Need for IV Antibiotics - Plan Summary Plan Summary: needs 48 to 72 hours of IV antibiotics and then can transition to PO antibiotics for outpatient follow up.
[2017-11-17] MEDS: NORMAL SALINE 10 ML SDV (SCHEDULED) IV SCH (15:34)
[2017-11-17 15:53] VITALS: BP 98/58
--- NOTE | 2017-11-17 19:25 | PDOC DISCHARGE SUMMARY ---
General - Admit/Disc Date/PCP Admission Date/Primary Care Provider: 11/16/17 01:14 Discharge Date: 11/17/17 - leaving AMA - Discharge Diagnosis (1) Leukocytosis Is this a current diagnosis for this admission?: Yes (2) PID (acute pelvic inflammatory disease) Is this a current diagnosis for this admission?: Yes (3) Tubo-ovarian abscess Is this a current diagnosis for this admission?: Yes (4) Gonorrhea Is this a current diagnosis for this admission?: Yes - Additional Information Home Medications: No Home Medications 11/16/17 History of Present Illness History of Present Illness: AILEEN DIAS is a 27 year old female Hospital Course Hospital Course: patient refusing to stay in hospital. Advised her that she should stay for cont 'd IV antibiotics however she insists that she "is not staying" Physical Exam - Physical Exam Vital Signs: Temp Pulse Resp BP Pulse Ox 98.9 F 93 16 98/58 L 98 11/17/17 15:48 11/17/17 15:48 11/17/17 15:48 11/17/17 15:48 11/17/17 15:48 Intake & Output 11/16/17 11/17/17 11/18/17 06:59 06:59 06:59 Intake Total 1925 1050 Balance 1925 1050 Weight 78.2 kg 78.2 kg - Gynecological Exam Cervix: discharge - Er reports pus from the cervix Result Laboratory Results: 11/16/17 07:10 Impressions: Transvaginal US 11/15/17 21:49 IMPRESSION: Complex 6.5 cm mass component of the right paracentral pelvis probably involves a small hydrosalpinx. Small free fluid. Differential diagnosis includes pelvic inflammatory disease, hemorrhagic cyst, endometrioma, and neoplasm. Recommend contrast CT/ultrasound evaluation/surveillance including at 6-8 weeks following clinically warranted therapy. Guidance Fluoroscopy 11/16/17 00:00 IMPRESSION: SUCCESSFUL PLACEMENT OF A 5 FR DUAL LUMEN 38 CM PICC IN THE LEFT BASILIC VEIN. Interventional Vascular Procedure 11/16/17 00:00 IMPRESSION: SUCCESSFUL PLACEMENT OF A 5 FR DUAL LUMEN 38 CM PICC IN THE LEFT BASILIC VEIN. PICC Line Insertion 11/16/17 00:00 IMPRESSION: SUCCESSFUL PLACEMENT OF A 5 FR DUAL LUMEN 38 CM PICC IN THE LEFT BASILIC VEIN. Plan Discharge Plan: PICC line being removed. Will give written scripts for antibiotics
== END 2017-11-17 20:30 | disposition left against medical advice (07) | DRG 759 ==
LOC: ER 18:29 → EH 11-16 01:14 → 2N 11-16 02:55
PROVIDERS: ADMIT Obstetrics & Gynecology; ATTEND Obstetrics & Gynecology
PROC: 02HV33Z Insertion of Infusion Device into Superior Vena Cava, Percutaneous Approach (ICD-10-PCS; principal; 2017-11-16)
PROC: B518ZZA Fluoroscopy of Superior Vena Cava, Guidance (ICD-10-PCS; 2017-11-16)
PROC: B548ZZA Ultrasonography of Superior Vena Cava, Guidance (ICD-10-PCS; 2017-11-16)
DX: A54.24 Gonococcal female pelvic inflammatory disease (principal); F31.9 Bipolar disorder, unspecified; F17.210 Nicotine dependence, cigarettes, uncomplicated; N70.93 Salpingitis and oophoritis, unspecified; N73.9 Female pelvic inflammatory disease, unspecified; D72.829 Elevated white blood cell count, unspecified; Z88.8 Allergy status to other drugs, medicaments and biological substances
CPT/HCPCS: 36415; 36569; 76830; 76937; 77001; 80053; 80307; 81001; 81025; 82803; 83605; 83690; 85025; 85027; 87040; 87210; 87491; 87591; 93976; 94799; 96372; 96374; 99285; J0694; J0696; J1642; J1885; J2550; J3490; J7030; J7060; J7120

== ENCOUNTER 2018-01-01 16:53 | Emergency (ER) | payer OTHER ==
[2018-01-01 17:09] VITALS: BP 124/66
[2018-01-01] MEDS ORDERED: VANCOMYCIN HCL INJ 1000 MG VIAL IV ONE (17:20)
--- NOTE | 2018-01-01 17:20 | ER Document Report ---
ED Medical Screen (RME) - General Chief Complaint: Leg Swelling Stated Complaint: ABSCESS/LEFT LEG Time Seen by Provider: 01/01/18 17:15 Mode of Arrival: Ambulatory Information source: Patient, [facility] Records Notes: 27-year-old female with bipolar disorder, heroin abuse presents with left lower extremity pain, erythema and swelling. Patient states she last used IV drugs this morning. She said 1 week ago she did shoot up into the left lower extremity. She reports increasing redness and purulent drainage from the lower extremity. Patient does have a history of MRSA. I have greeted and performed a rapid initial assessment of this patient. A comprehensive ED assessment and evaluation of the patient, analysis of test results and completion of medical decision making process we will be contacted by additional ED providers. PHYSICAL EXAMINATION: Vital signs reviewed GENERAL: Ill-appearing, crying LUNGS: No respiratory distress Musculoskeletal: Normal range of motion NEUROLOGICAL: Normal speech, normal gait. PSYCH: Normal mood, normal affect. SKIN: Left lower extremityerythematous, tender with palpation TRAVEL OUTSIDE OF THE [place] IN LAST 30 DAYS: No - HPI Onset: Last week Onset/Duration: Gradual, Persistent Quality of pain: Throbbing Associated Symptoms: Chills, Nausea Exacerbated by: Supine, Movement, Walking Relieved by: Denies Similar symptoms previously: Yes Recently seen / treated by doctor: No - Related Data Smoking: Cigarettes Frequency of alcohol use: Occasional Drug Abuse: Heroin Allergies/Adverse Reactions: Choline Fenofibrate [From Trilipix] Allergy (Mild, Verified 09/03/17 15:35) rash oxcarbazepine [From Trileptal] Allergy (Verified 09/03/17 15:35) Past Medical History - Social History Chew tobacco use (# tins/day): No Frequency of alcohol use: Rare Drug Abuse: Heroin Pulmonary Medical History: Reports: Hx Bronchitis Renal/ Medical History: Reports: Hx Pelvic Inflammatory Disease. Denies: Hx Peritoneal Dialysis Psychiatric Medical History: Reports: Hx Anxiety, Hx Bipolar Disorder - mood d/o , Hx Depression Past Surgical History: Reports: Hx Tonsillectomy - Immunizations Hx Diphtheria, Pertussis, Tetanus Vaccination: Yes History of Influenza Vaccine for 01/2017 - 06/2017 Season: Unknown Physical Exam - Vital signs Vitals: Temp Pulse Resp BP Pulse Ox 98.4 F 115 H 18 124/66 99 01/01/18 17:07 01/01/18 17:07 10/01/18 17:07 01/01/18 17:07 01/01/18 17:07 Course - Vital Signs Vital signs: Temp Pulse Resp BP Pulse Ox 98.4 F 115 H 18 124/66 99 01/01/18 17:07 01/01/18 17:07 01/01/18 17:07 01/01/18 17:07 01/01/18 17:07
[2018-01-01] MEDS ORDERED: NORMAL SALINE 1000 ML 1,000 ML IV ONE (19:03)
--- NOTE | 2018-01-01 19:03 | ER Document Report ---
ED General - General Chief Complaint: Leg Swelling Stated Complaint: ABSCESS/LEFT LEG Time Seen by Provider: 01/01/18 17:15 Mode of Arrival: Ambulatory Notes: Patient is a 27-year-old female with IV drug use that presents to the emergency department for chief complaint of left leg infection. Patient reports that she attempted to inject illicit IV drugs into her leg and "missed", this occurred 4 days ago, and since then she has had increased swelling and redness and pain in her left leg. She rates her pain as a 9 out of 10 at this time describes it as a sharp and constant aching sensation, that radiates across her entire leg. Denies having any pain in the groin. Denies noting any fevers, chills, night sweats, chest pain, nausea or vomiting. She reports prior history of abscesses in the past. Past Medical History: IV drug use and abuse Past Surgical History: Tonsillectomy Social History: Admits to smoking cigarettes, and denies alcohol use, but admits to using IV drug use. Family History: Reviewed and noncontributory for presenting illness Allergies: Reviewed, see documented allergy list. REVIEW OF SYSTEMS: Unless otherwise stated in this report the patient's positive and negative responses for review of systems for constitutional, eyes, ENT, cardiovascular, respiratory, gastrointestinal, neurological, genitourinary, musculoskeletal, and integumentary systems and related systems to the presenting problem are either as stated in the HPI or were not pertinent or were negative for the symptoms and/or complaints related to the presenting medical problem. PHYSICAL EXAMINATION: Vital signs reviewed, nursing noted reviewed. GENERAL: Well-appearing, well-nourished, appears uncomfortable, tearful HEAD: Atraumatic, normocephalic. EYES: Eyes appear normal, extraocular movements intact, sclera anicteric, conjunctiva are normal. ENT: nares patent, oropharynx clear without exudates. Moist mucous membranes. NECK: Normal range of motion, supple without lymphadenopathy LUNGS: Breath sounds clear to auscultation bilaterally and equal. No wheezes rales or rhonchi. HEART: Regular rate and rhythm without murmurs ABDOMEN: Soft, nontender, normoactive bowel sounds. No rebound, guarding, or rigidity. No masses appreciated. EXTREMITIES: Left lower extremity, there is an area of erythema over the left buck, measuring approximately 6 cm in diameter, that is tender to palpate and feels warm as well, there is some distal lower extremity 1+ pitting edema associated with this. Aside from other noted track jones, and healed scars in the upper and lower extremities, they are otherwise unremarkable. good range of motion. NEUROLOGICAL: No focal neurological deficits. Moves all extremities spontaneously Motor and sensory grossly intact on exam. PSYCH: Tearful, appears uncomfortable, but answering questions appropriately SKIN: Warm, Dry, normal turgor, multiple track jones in the bilateral upper and lower extremities. TRAVEL OUTSIDE OF THE [place] IN LAST 30 DAYS: No - Related Data Allergies/Adverse Reactions: Choline Fenofibrate [From Trilipix] Allergy (Mild, Verified 09/03/17 15:35) rash oxcarbazepine [From Trileptal] Allergy (Verified 09/03/17 15:35) Past Medical History - General Information source: Patient, [facility] Records - Social History Smoking Status: Current Every Day Smoker Chew tobacco use (# tins/day): No Frequency of alcohol use: Rare Drug Abuse: Heroin Family History: Reviewed & Not Pertinent Patient has suicidal ideation: No Patient has homicidal ideation: No Pulmonary Medical History: Reports: Hx Bronchitis Renal/ Medical History: Reports: Hx Pelvic Inflammatory Disease. Denies: Hx Peritoneal Dialysis Psychiatric Medical History: Reports: Hx Anxiety, Hx Bipolar Disorder - mood d/o , Hx Depression Past Surgical History: Reports: Hx Tonsillectomy - Immunizations Hx Diphtheria, Pertussis, Tetanus Vaccination: Yes Physical Exam - Vital signs Vitals: Temp Pulse Resp BP Pulse Ox 98.4 F 115 H 18 124/66 99 01/01/18 17:07 01/01/18 17:07 01/01/18 17:07 01/01/18 17:07 01/01/18 17:07 Course - Re-evaluation Re-evalutation: Patient seen and examined vital signs reviewed. Laboratory data and imaging were ordered as appropriate for the patient's presenting symptoms and complaint, with consideration of any critical or life threatening conditions that may be associated with their obtained history and exam as noted above. Blood work was ordered as well as plan for IV antibiotics, attempt for IV was placed, good flash obtained by nursing, then patient screamed and pulled her arm away, stating that she demands a PICC line, I explained to her that we do not have PICC line availability at this time at night, that a peripheral IV is the best option for access, I discussed with her other options including central access if needed, or IO placement, however the patient refused these, stating that she would rather go home. Patient was treated with IV clindamycin, IV fluids, and IV Toradol for her pain , after IV was placed, but this rapidly blue after he was placed, I personally then placed an ultrasound-guided IV in the patient's left antecubital fossa, good flush and blood draw. Results were reviewed when available and demonstrated leukocytosis, lactic acid normal, no renal insufficiency, blood work was otherwise unremarkable, hCG negative patient was given IV clindamycin, and IV doxycycline The patient was re-evaluated and was stable, still tearful and uncomfortable stating that she wanted to leave and get a cigarette Evaluation was most consistent with left lower extremity abscess and cellulitis , will discharge the patient home with a prescription for doxycycline for 10 days and have her follow-up with the [facility] Results were discussed with the patient at this point, after careful consideration I feel that that patient can be discharged from the emergency department, the patient was educated treatments and reasons to return to the emergency department based on their presumed diagnosis as noted above, they were advised to followup with a primary care physician in 2-3 days. Patient was agreeable to plan of care. *Note is created using voice recognition software and may contain spelling, syntax or grammatical errors. Laboratory 01/01/18 01/01/18 01/01/18 18:24 23:14 23:14 WBC 16.0 H RBC 4.38 Hgb 11.9 L Hct 35.4 L MCV 81 MCH 27.0 MCHC 33.5 RDW 15.2 H Plt Count 372 Seg Neutrophils % 53.6 Lymphocytes % 38.3 Monocytes % 6.0 Eosinophils % 1.5 Basophils % 0.6 Absolute Neutrophils 8.6 H Absolute Lymphocytes 6.1 H Absolute Monocytes 1.0 Absolute Eosinophils 0.2 Absolute Basophils 0.1 Sodium 135.5 L Potassium 4.3 Chloride 96 L Carbon Dioxide 30 Anion Gap 10 BUN 8 Creatinine 0.78 Est GFR ( Amer) > 60 Est GFR (Non-Af Amer) > 60 Glucose 94 Lactic Acid Calcium 9.1 Total Bilirubin 0.6 Direct Bilirubin 0.2 Neonat Total Bilirubin Not Reportable Neonat Direct Bilirubin Not Reportable Neonat Indirect Bili Not Reportable AST 19 ALT 23 Alkaline Phosphatase 89 Total Protein 6.9 Albumin 3.9 Urine HCG, Qual NEGATIVE 01/01/18 23:14 WBC RBC Hgb Hct MCV MCH MCHC RDW Plt Count Seg Neutrophils % Lymphocytes % Monocytes % Eosinophils % Basophils % Absolute Neutrophils Absolute Lymphocytes Absolute Monocytes Absolute Eosinophils Absolute Basophils Sodium Potassium Chloride Carbon Dioxide Anion Gap BUN Creatinine Est GFR ( Amer) Est GFR (Non-Af Amer) Glucose Lactic Acid 1.0 Calcium Total Bilirubin Direct Bilirubin Neonat Total Bilirubin Neonat Direct Bilirubin Neonat Indirect Bili AST ALT Alkaline Phosphatase Total Protein Albumin Urine HCG, Qual Tibia/Fibula X-Ray 01/01/18 17:20 IMPRESSION: No acute fracture or dislocation. NUMBER OF VIEWS: TECHNIQUE: LIMITATIONS: None. FINDINGS: IMPRESSION: 2010 [employer]- All Rights Reserved - Vital Signs Vital signs: Temp Pulse Resp BP Pulse Ox 98.4 F 115 H 18 124/66 99 01/01/18 17:07 01/01/18 17:07 01/01/18 17:07 01/01/18 17:07 01/01/18 17:07 - Laboratory Result Diagrams: 01/01/18 23:14 01/01/18 23:14 Laboratory results interpreted by me: 01/01/18 01/01/18 23:14 23:14 WBC 16.0 H Hgb 11.9 L Hct 35.4 L RDW 15.2 H Absolute Neutrophils 8.6 H Absolute Lymphocytes 6.1 H Sodium 135.5 L Chloride 96 L Discharge - Discharge Clinical Impression: Cellulitis of right lower extremity, IV drug abuse Leukocytosis Qualifiers: Leukocytosis type: unspecified Qualified Code(s): D72.829 - Elevated white blood cell count, unspecified Condition: Stable Disposition: HOME, SELF-CARE Instructions: Cellulitis ([facility]) Additional Instructions: Please return to the emergency department if you have any worsening, or concern of your symptoms. Please return to the emergency department if you develop chest pain, difficulty breathing, severe abdominal pain, or ongoing vomiting. Please follow-up with your primary care physician in 2-3 days and any other recommended physicians. If prescribed, take all medications as directed. If you have any questions or concerns do not hesitate to return the emergency department for evaluation. Please follow-up with a primary care physician, if you do not have one, call the [facility] or the [facility] to follow-up, if you cannot get in to see these, and her symptoms are worsening, do not hesitate to return to the emergency department, you must fill the antibiotic prescription and take this through its entire course. Prescriptions: Doxycycline Hyclate 100 mg PO BID #20 capsule Ibuprofen [Motrin 600 Mg Tablet] 600 mg PO TID #15 tablet Referrals: [facility] [Provider Group] - Follow up tomorrow [facility] [Provider Group] - Follow up tomorrow
--- NOTE | 2018-01-01 22:30 | RADIOLOGY REPORT (SQ) ---
EXAM DESCRIPTION: XR TIBIA FIBULA 2 VIEWS COMPLETED DATE/TME: 01/01/2018 17:20 CLINICAL HISTORY: 27 years, Female, infection COMPARISON: EXAM DESCRIPTION: CLINICAL HISTORY: infection COMPARISON: None FINDINGS: 4 view(s) submitted. No fracture or dislocation is identified. Bone marrow attenuation is unremarkable. No radiopaque foreign body is identified. IMPRESSION: No acute fracture or dislocation. NUMBER OF VIEWS: TECHNIQUE: LIMITATIONS: None. FINDINGS: IMPRESSION: 2010 [employer]- All Rights Reserved
[2018-01-01] MEDS ORDERED: CLINDAMYCIN 900 MG/D5W RTU 900 MG/50 ML RTUPB IV ONE (23:13)
[2018-01-01] MEDS ORDERED: KETOROLAC TROMETHAMINE INJ/PF 30 MG/1 ML SDV IV ONE (23:14)
[2018-01-01 23:26] LABS: ABSOLUTE BASOPHILS # (AUTO) 0.1 10^3/uL (0.0-0.2); ABSOLUTE EOSINOPHILS # (AUTO) 0.2 10^3/uL (0.0-0.6); ABSOLUTE LYMPHOCYTES (AUTO) 6.1 10^3/uL (0.5-4.7); ABSOLUTE NEUT (AUTO) 8.6 10^3/uL (1.7-8.2); BASOPHILS % (AUTO) 0.6 % (0-2); EOSINOPHILS % (AUTO) 1.5 % (0-6); HEMATOCRIT 35.4 % (36.0-47.0); HEMOGLOBIN 11.9 g/dL (12.0-15.5); LYMPHOCYTES % (AUTO) 38.3 % (13-45); MEAN CORPUSCULAR HGB CONC 33.5 g/dL (32.0-36.0); MEAN CORPUSCULAR VOLUME 81 fl (80-97); PLATELET COUNT 372 10^3/uL (150-450); RED BLOOD COUNT 4.38 10^6/uL (3.72-5.28); RED CELL DISTRIBUTION WIDTH 15.2 % (11.5-14.0); SEGMENTED NEUTROPHILS % (AUTO) 53.6 % (42-78); TOTAL CELLS COUNTED % (AUTO) 100 %
[2018-01-01 23:40] LABS: ALANINE AMINOTRANSFERASE 23 U/L (9-52); ALBUMIN 3.9 g/dL (3.5-5.0); ALKALINE PHOSPHATASE 89 U/L (38-126); ANION GAP 10 (5-19); ASPARTATE AMINO TRANSFERASE 19 U/L (14-36); BILIRUBIN,DIRECT 0.2 mg/dL (0.0-0.4); BILIRUBIN,TOTAL 0.6 mg/dL (0.2-1.3); BLOOD UREA NITROGEN 8 mg/dL (7-20); CALCIUM 9.1 mg/dL (8.4-10.2); CARBON DIOXIDE 30 mmol/L (22-30); CHLORIDE 96 mmol/L (98-107); GLUCOSE 94 mg/dL (75-110); POTASSIUM 4.3 mmol/L (3.6-5.0); SODIUM 135.5 mmol/L (137-145); TOTAL PROTEIN 6.9 g/dL (6.3-8.2)
[2018-01-02] MEDS ORDERED: DOXYCYCLINE HYCLATE INJ 100 MG VIAL IV ONE (00:21)
== END 2018-01-02 02:28 | disposition left against medical advice (07) ==
LOC: ER 16:53
DX: L03.115 Cellulitis of right lower limb (principal); F11.10 Opioid abuse, uncomplicated; D72.829 Elevated white blood cell count, unspecified; F17.210 Nicotine dependence, cigarettes, uncomplicated; Z88.8 Allergy status to other drugs, medicaments and biological substances
CPT/HCPCS: 99284; 96375; 96365; 96366; 96368; 36415; 87040; 85025; 81025; 80053; 83605; 73590; J3490; J1885

== ENCOUNTER 2018-01-07 18:42 | Inpatient (IN) | payer OTHER ==
[2018-01-07] MEDS ORDERED: NORMAL SALINE 1000 ML 1,000 ML IV ONE (21:39)
[2018-01-07] MEDS ORDERED: AMPICILLIN SOD/SULBACTAM 3 GM VIAL IV ONE (21:40)
[2018-01-07 23:00] LABS: HEMATOCRIT 31.6 % (36.0-47.0); HEMOGLOBIN 10.9 g/dL (12.0-15.5); MEAN CORPUSCULAR HEMOGLOBIN 27.6 pg (27.0-33.4); MEAN CORPUSCULAR HGB CONC 34.4 g/dL (32.0-36.0); MEAN CORPUSCULAR VOLUME 80 fl (80-97); PLATELET COUNT 385 10^3/uL (150-450); RED BLOOD COUNT 3.94 10^6/uL (3.72-5.28); RED CELL DISTRIBUTION WIDTH 14.4 % (11.5-14.0); WHITE BLOOD COUNT 8.3 10^3/uL (4.0-10.5)
[2018-01-07 23:18] LABS: ALANINE AMINOTRANSFERASE 20 U/L (9-52); ALBUMIN 3.2 g/dL (3.5-5.0); ALKALINE PHOSPHATASE 95 U/L (38-126); ANION GAP 7 (5-19); ASPARTATE AMINO TRANSFERASE 20 U/L (14-36); BILIRUBIN,DIRECT 0.2 mg/dL (0.0-0.4); BILIRUBIN,TOTAL 0.2 mg/dL (0.2-1.3); BLOOD UREA NITROGEN 6 mg/dL (7-20); CARBON DIOXIDE 28 mmol/L (22-30); CHLORIDE 105 mmol/L (98-107); GLUCOSE 101 mg/dL (75-110); POTASSIUM 4.3 mmol/L (3.6-5.0); SODIUM 139.5 mmol/L (137-145); TOTAL PROTEIN 6.3 g/dL (6.3-8.2)
--- NOTE | 2018-01-07 23:21 | ER Document Report ---
ED General - General Chief Complaint: Insect Bite Time Seen by Provider: 01/07/18 21:16 Information source: Patient, [facility] Records Notes: Patient is a 27-year-old female who returns to the emergency room tonight complaining of her left leg pain and swelling. Patient was seen here on January [address] Fong. He had written patient for doxycycline and another medication as an outpatient and evidently patient eloped before receiving the paperwork. Patient is admitted to be an IV drug user. She denies shooting up in that area. When she left here the last time she did not go anywhere else to get any antibiotics. She is back tonight because the leg is double the size and she is concerned more now than she was then. To preempt the rest of this physical exam I have sat down with patient and asked her before we started the workup if she was going to remain for the duration. I explained to her that she is close to losing the leg and that if she leaves she may not be able to save it. She has agreed to stay. She denies any other medical problems. Patient states that originally started out that she thought it was a spider bite. TRAVEL OUTSIDE OF THE [place] IN LAST 30 DAYS: No - HPI Onset: Other - 10 days Onset/Duration: Gradual Quality of pain: Pressure, Sharp, Throbbing Pain Level: 4 Associated symptoms: Body/muscle aches, Chills, Leg swelling Exacerbated by: Walking Relieved by: Denies Similar symptoms previously: Yes Recently seen / treated by doctor: Yes - Related Data Allergies/Adverse Reactions: Choline Fenofibrate [From Trilipix] Allergy (Mild, Verified 01/07/18 23:40) rash oxcarbazepine [From Trileptal] Allergy (Verified 01/07/18 23:40) Past Medical History - General Information source: Patient, [facility] Records - Social History Smoking Status: Current Every Day Smoker Cigarette use (# per day): Yes Smoking Education Provided: Yes Family History: Reviewed & Not Pertinent Patient has suicidal ideation: No Patient has homicidal ideation: No Pulmonary Medical History: Reports: Hx Bronchitis Renal/ Medical History: Reports: Hx Pelvic Inflammatory Disease. Denies: Hx Peritoneal Dialysis Psychiatric Medical History: Reports: Hx Anxiety, Hx Bipolar Disorder - mood d/o , Hx Depression Past Surgical History: Reports: Hx Tonsillectomy - Immunizations Hx Diphtheria, Pertussis, Tetanus Vaccination: Yes Review of Systems - Review of Systems Constitutional: No symptoms reported, Chills, Malaise EENT: No symptoms reported Cardiovascular: No symptoms reported Respiratory: No symptoms reported Gastrointestinal: No symptoms reported Genitourinary: No symptoms reported Female Genitourinary: No symptoms reported Musculoskeletal: Muscle pain, Leg swelling, Ankle swelling Skin: Lesions Hematologic/Lymphatic: No symptoms reported Neurological/Psychological: No symptoms reported -: Yes All other systems reviewed and negative Physical Exam - Vital signs Vitals: Temp Pulse Resp BP Pulse Ox 98.4 F 92 18 105/60 98 01/07/18 18:50 01/07/18 18:50 01/07/18 18:50 01/07/18 18:50 01/07/18 18:50 Interpretation: Hypotensive - Notes Notes: Patient is a 27-year-old female who is obese and in what appears to be moderate discomfort. - General General appearance: Alert - HEENT Head: Normocephalic, Atraumatic Eyes: Normal - Respiratory Respiratory status: No respiratory distress Chest status: Nontender Breath sounds: Normal. No: Productive cough, Rales, Rhonchi, Stridor, Wheezing Chest palpation: Normal - Cardiovascular Rhythm: Regular Heart sounds: Normal auscultation Murmur: No - Abdominal Inspection: Normal Distension: No distension Bowel sounds: Normal Tenderness: Nontender Organomegaly: No organomegaly - Extremities General lower extremity: Normal inspection, Tender, Edema. No: Normal color, Normal ROM, Normal strength, Normal temperature, Normal weight bearing, Mark's sign Calf: Tender Ankle: Tender, Edema Foot: Tender, Edema, Unable to bear weight - Neurological Neuro grossly intact: Yes Cognition: Normal Orientation: AAOx4 Dada Coma Scale Eye Opening: Spontaneous Dada Coma Scale Verbal: Oriented Dada Coma Scale Motor: Obeys Commands Dada Coma Scale Total: 15 Course - Re-evaluation Re-evalutation: 01/08/18 00:19 As stated earlier in the H&P I personally asked patient if she was going to stay if we were going to save her leg. She agreed. I discussed case with Dr. Guerrero he feels that patient needs to come in. I informed him that I was really adamant about this 1 because her leg is 2 times the size of her right leg and the whole in the leg looks even worse. The labs come back a little misleading and that she has a normal white count and she looks like she has a little bit of a viral shift but looking at the leg it is bad. When I have the hospitalist admit and I do not believe she needs to get an orbital consult right now but also got a ultrasound ordered for DVT study as well. 01/08/18 01:33 Dr. Posey accepted patient's admission but however she had gotten for previous admission to the floor and asked me to monitor patient and be responsible for her until she can get down to see her. I agreed to this. Patient is only needed additional type of pain medication which I gave her 30 of Toradol. - Vital Signs Vital signs: Temp Pulse Resp BP Pulse Ox 98.6 F 86 16 115/67 99 01/08/18 01:04 01/08/18 01:04 01/08/18 01:04 01/08/18 01:04 01/08/18 01:04 - Laboratory Result Diagrams: 01/07/18 22:45 01/07/18 22:45 Laboratory results interpreted by me: 01/07/18 01/07/18 22:45 22:45 Hgb 10.9 L Hct 31.6 L RDW 14.4 H Seg Neuts % (Manual) 37 L Lymphocytes % (Manual) 46 H BUN 6 L Albumin 3.2 L Discharge - Discharge Clinical Impression: Cellulitis of right leg, IV drug abuse, Cellulitis of left leg Disposition: ADMITTED INPATIENT Admitting Provider: Hospitalist Unit Admitted: Medical Floor
[2018-01-07 23:25] LABS: ABSOLUTE LYMPHOCYTES# (MANUAL) 4.5 10^3/uL (0.5-4.7); ABSOLUTE MONOCYTES # (MANUAL) 0.4 10^3/uL (0.1-1.4); ABSOLUTE NEUTROPHILS# (MANUAL) 3.1 10^3/uL (1.7-8.2); BASOPHILS % (MANUAL) 0 % (0-2); EOSINOPHILS % (MANUAL) 4 % (0-6); LYMPHOCYTES % (MANUAL) 46 % (13-45); MONOCYTES % (MANUAL) 5 % (3-13); SEGMENTED NEUTROPHILS % (MAN) 37 % (42-78); TOTAL CELLS COUNTED 100
[2018-01-07 23:31] LABS: ANISOCYTOSIS SLIGHT; OVALOCYTES SLIGHT; PLATELET COMMENT ADEQUATE; POIKILOCYTOSIS SLIGHT; SCHISTOCYTES SLIGHT; TOXIC GRANULATION 1+; TOXIC VACUOLATION PRESENT
--- NOTE | 2018-01-07 23:57 | RADIOLOGY REPORT (SQ) ---
CT left lower leg with IV contrast HISTORY: Left lower leg abscess. This exam was performed according to our departmental dose-optimization program which includes automated exposure control, adjustment of the mA and/or kVp according to patient size and/or use of iterative reconstruction technique where applicable. FINDINGS: Left tibia and fibula are intact. Bones of the foot are intact. No erosive lesions. There is mild diffuse subcutaneous edema in the left lower leg and foot. No fluid collections. No radiopaque foreign body. IMPRESSION: Left lower leg subcutaneous edema may be due to inflammation or cellulitis. No evidence for fluid collection to suggest abscess.
[2018-01-08] MEDS ORDERED: KETOROLAC TROMETHAMINE INJ/PF 30 MG/1 ML SDV IV ONE (01:13)
[2018-01-08] MEDS ORDERED: MAG HYDROX/AL HYDROX/SIMETH SUSP 30 ML UDCUP PO PRN (03:39)
[2018-01-08] MEDS ORDERED: ACETAMINOPHEN 325 MG TABLET PO PRN (03:39)
[2018-01-08] MEDS ORDERED: PROMETHAZINE HCL INJ 25 MG/1 ML VIAL IV PRN (03:39)
[2018-01-08] MEDS ORDERED: PROMETHAZINE HCL 25 MG TABLET PO PRN (03:39)
[2018-01-08] MEDS ORDERED: VANCOMYCIN HCL 0 MG in DEXTROSE 5%-WATER 250 ML IV NR (03:45)
[2018-01-08] MEDS ORDERED: VANCOMYCIN HCL INJ 1000 MG VIAL IV PRN (03:56)
[2018-01-08] MEDS ORDERED: AMPICILLIN SODIUM/SULBACTAM NA 3 GM in NORMAL SALINE 100 ML IV ONE (04:00)
[2018-01-08] MEDS ORDERED: VANCOMYCIN HCL 1,500 MG in DEXTROSE 5%-WATER 250 ML IV ONE (04:00)
[2018-01-08] MEDS ORDERED: NICOTINE 21 MG/24 HR PATCH.TD24 TD ONE (04:00)
[2018-01-08] MEDS ORDERED: AMPICILLIN SOD/SULBACTAM 3 GM VIAL IV PRN (04:00)
[2018-01-08] MEDS ORDERED: VANCOMYCIN HCL INJ 500 MG VIAL ONE (04:14)
[2018-01-08] MEDS ORDERED: VANCOMYCIN HCL INJ 1000 MG VIAL ONE (04:14)
[2018-01-08] MEDS ORDERED: KETOROLAC TROMETHAMINE INJ/PF 30 MG/1 ML SDV IV PRN (05:12)
--- NOTE | 2018-01-08 05:12 | PDOC H&P ---
History of Present Illness Admission Date/PCP: 01/08/18 02:17 Patient complains of: Left lower extremity pain History of Present Illness: AILEEN DIAS is a 27 year old female who comes to the emergency department complaining of left lower extremity pain and swelling. Patient was in our facility on January 01, patient was evaluated and was planned to be sent home with p.o. doxycycline and Motrin, unfortunately patient eloped from the ED without any prescription. Patient is known to be IV drug abuser. She denies shooting up in that area. Patient did not have any antibiotics. Patient is back to the ED because her left lower extremity is very swollen, erythematous, she is states that she had a spider bite that now looks necrotic with purulent secretion in the left mid tibial area. Unable to bear weight in that leg. CT of the left lower extremity negative for close fluid collection. Patient is a very uncooperative. Past Medical History Pulmonary Medical History: Reports: Bronchitis Psychiatric Medical History: Reports: Bipolar Disorder - mood d/o, Depression Infectious Medical History: Reports: Other Infectious History Note: Recurrent PID's Past Surgical History Past Surgical History: Reports: Tonsillectomy Social History Smoking Status: Current Every Day Smoker Number of Years Smokin Last Time Smoked: 01/07/2018 Frequency of Alcohol Use: Occasional Hx Recreational Drug Use: Yes Drugs: Heroin - IV drug abuse Hx Prescription Drug Abuse: No - denies Family History Family History: Reviewed & Not Pertinent Parental Family History Reviewed: No - Patient very uncooperative, unable to obtain Children Family History Reviewed: NA Sibling(s) Family History Reviewed.: NA Medication/Allergy Home Medications: Cephalexin Monohydrate [Keflex 500 mg Capsule] 500 mg PO QID #60 capsule Doxycycline Hyclate 100 mg PO BID 10 Days #20 capsule 11/17/17 Doxycycline Hyclate 100 mg PO BID #20 capsule 01/02/18 Ibuprofen [Motrin 600 Mg Tablet] 600 mg PO TID #15 tablet 01/02/18 Allergies/Adverse Reactions: Choline Fenofibrate [From Trilipix] Allergy (Mild, Verified 01/07/18 23:40) rash oxcarbazepine [From Trileptal] Allergy (Verified 01/07/18 23:40) Review of Systems Review of Systems: As outlined in the HPI, others negative Physical Exam Vital Signs: Temp Pulse Resp BP Pulse Ox 98.6 F 86 16 115/67 99 01/08/18 01:04 01/08/18 01:04 01/08/18 01:04 01/08/18 01:04 01/08/18 01:04 Additional comments: General appearance: Well-developed, well-nourished, uncooperative, and appears to be in no acute distress Head: Normocephalic Eyes: PEERL, EOMI, vision is grossly intact. Ears: External auditory canal and tympanic membranes clear, hearing grossly intact. Nose: No nasal discharge. Throat: Oral cavity and pharynx normal. No inflammation, swelling, exudate or lesions. Neck: Neck supple, nontender without lymphadenopathy, masses or thyromegaly. Cardiac: Normal S1 and S2. No S3, S4 or murmurs. Rhythm is regular. There is no cyanosis or pallor. Extremities are warm and well perfused. Capillary refill is less than 2 seconds. No carotid bruits. Lungs: Clear to auscultation and percussion without rales, rhonchi, wheezing or diminished breath sounds. Not using accessory muscles. Abdomen: Positive bowel sounds. Soft. Nondistended, nontender. No guarding or rebound. No masses. No hepatosplenomegaly Extremities: Left lower extremity: Severe below the knee edema associated with erythema, very tender to palpation, necrotic tissue in the mid anterior tibial area with purulent secretion. Neurological: Cranial nerves II through XII grossly intact. Strength and sensation symmetric and intact throughout. Reflexes 2+ throughout. Skin: Skin normal color, texture and turgor with no lesions or eruptions, warm and dry. Psychiatric: The mental examination revealed the patient was oriented to person , place, and time. Results Laboratory Results: 01/07/18 01/07/18 22:45 22:45 WBC 8.3 RBC 3.94 Hgb 10.9 L Hct 31.6 L MCV 80 MCH 27.6 MCHC 34.4 RDW 14.4 H Plt Count 385 Total Counted 100 Seg Neuts % (Manual) 37 L Lymphocytes % (Manual) 46 H Atypical Lymphs % 8 Monocytes % (Manual) 5 Eosinophils % (Manual) 4 Basophils % (Manual) 0 Abs Neuts (Manual) 3.1 Abs Lymphs (Manual) 4.5 Abs Monocytes (Manual) 0.4 Absolute Eos (Manual) 0.3 Abs Basophils (Manual) 0.0 Toxic Granulation 1+ Toxic Vacuolation PRESENT Platelet Comment ADEQUATE Poikilocytosis SLIGHT Anisocytosis SLIGHT Ovalocytes SLIGHT Schistocytes SLIGHT Sodium 139.5 Potassium 4.3 Chloride 105 Carbon Dioxide 28 Anion Gap 7 BUN 6 L Creatinine 0.69 Est GFR ( Amer) > 60 Est GFR (Non-Af Amer) > 60 Glucose 101 Calcium 9.0 Total Bilirubin 0.2 Direct Bilirubin 0.2 AST 20 ALT 20 Alkaline Phosphatase 95 Total Protein 6.3 Albumin 3.2 L Impressions: Lower Extremity CT 01/07/18 21:42 IMPRESSION: Left lower leg subcutaneous edema may be due to inflammation or cellulitis. No evidence for fluid collection to suggest abscess. Assessment & Plan - Diagnosis (1) Cellulitis of left leg Is this a current diagnosis for this admission?: Yes Plan: Patient comes with left lower extremity cellulitis and an necrotic area in the anterior tibial area, patient states that she has been bitten by a spider, she is known to be IV drug abuser. I will place the patient on IV vancomycin and IV Unasyn. General surgery consultation for possible I&D. Left lower extremity ultrasound order placed. IV/p.o. pain medications and IV/p.o. antiemetics as needed. Wound culture. Blood cultures sent, please follow identification and sensitivity. (2) IV drug abuse Is this a current diagnosis for this admission?: Yes Plan: Patient uses heroine, very uncooperative in the emergency department. Urine drug screen pending. Urine test pending, on 01/01 was negative. - Time Time Spent: 30 to 50 Minutes - Inpatient Certification Based on my medical assessment, after consideration of the patient's comorbidities, presenting symptoms, or acuity I expect that the services needed warrant INPATIENT care.: Yes I certify that my determination is in accordance with my understanding of Medicare's requirements for reasonable and necessary INPATIENT services [42 CFR 412.3e].: Yes Medical Necessity: Risk of Complication if Not Cared For in Hospital
[2018-01-08 06:52] LABS: HEMATOCRIT 35.1 % (36.0-47.0); HEMOGLOBIN 11.9 g/dL (12.0-15.5); MEAN CORPUSCULAR HEMOGLOBIN 27.2 pg (27.0-33.4); MEAN CORPUSCULAR VOLUME 80 fl (80-97); PLATELET COUNT 305 10^3/uL (150-450); RED BLOOD COUNT 4.39 10^6/uL (3.72-5.28); RED CELL DISTRIBUTION WIDTH 14.6 % (11.5-14.0); WHITE BLOOD COUNT 7.9 10^3/uL (4.0-10.5)
[2018-01-08 07:17] LABS: ANION GAP 7 (5-19); BLOOD UREA NITROGEN 6 mg/dL (7-20); CALCIUM 8.6 mg/dL (8.4-10.2); CARBON DIOXIDE 24 mmol/L (22-30); CHLORIDE 109 mmol/L (98-107); GLUCOSE 94 mg/dL (75-110); POTASSIUM 4.8 mmol/L (3.6-5.0); SODIUM 139.8 mmol/L (137-145)
[2018-01-08 07:20] LABS: ABSOLUTE LYMPHOCYTES# (MANUAL) 4.3 10^3/uL (0.5-4.7); ABSOLUTE MONOCYTES # (MANUAL) 0.3 10^3/uL (0.1-1.4); BASOPHILS % (MANUAL) 1 % (0-2); EOSINOPHILS % (MANUAL) 2 % (0-6); LYMPHOCYTES % (MANUAL) 40 % (13-45); MONOCYTES % (MANUAL) 4 % (3-13); SEGMENTED NEUTROPHILS % (MAN) 38 % (42-78); TOTAL CELLS COUNTED 100
[2018-01-08 07:24] LABS: OVALOCYTES SLIGHT; PLATELET COMMENT ADEQUATE; POIKILOCYTOSIS 1+; TEAR DROP CELLS SLIGHT; TOXIC GRANULATION 1+
--- NOTE | 2018-01-08 07:25 | PDOC CONSULTATION ---
History of Present Illness Admission Date/PCP: 01/08/18 02:17 Patient complains of: left leg spider bite History of Present Illness: AILEEN DIAS is a 27 year old female who claimed while in her car a spider bit her on the left lower leg. This apparently drained on its own 2 days ago. Denies fever/chills. Past Medical History Pulmonary Medical History: Reports: Bronchitis Psychiatric Medical History: Reports: Bipolar Disorder - mood d/o, Depression Infectious Medical History: Reports: Other Past Surgical History Past Surgical History: Reports: Tonsillectomy Social History Smoking Status: Current Every Day Smoker Number of Years Smokin Last Time Smoked: 01/07/2018 Frequency of Alcohol Use: Occasional Hx Recreational Drug Use: Yes Drugs: Heroin - IV drug abuse Hx Prescription Drug Abuse: No - denies Family History Family History: Reviewed & Not Pertinent Parental Family History Reviewed: Yes Children Family History Reviewed: No Sibling(s) Family History Reviewed.: No Medication/Allergy Allergies/Adverse Reactions: Choline Fenofibrate [From Trilipix] Allergy (Mild, Verified 01/07/18 23:40) rash oxcarbazepine [From Trileptal] Allergy (Verified 01/07/18 23:40) Review of Systems Constitutional: PRESENT: as per HPI Eyes: PRESENT: other - no visual/hearing changes Cardiovascular: PRESENT: other - no chest pains/cough Gastrointestinal: PRESENT: other - no pains Genitourinary: PRESENT: other - no dysuria Neurological: PRESENT: other - no seizures Physical Exam Vital Signs: Temp Pulse Resp BP Pulse Ox 98.6 F 86 16 115/67 99 01/08/18 01:04 01/08/18 01:04 01/08/18 01:04 01/08/18 01:04 01/08/18 01:04 General appearance: PRESENT: no acute distress Head exam: PRESENT: atraumatic Eye exam: PRESENT: conjunctiva pink Mouth exam: PRESENT: moist Neck exam: PRESENT: full ROM Respiratory exam: PRESENT: clear to auscultation jose angel Cardiovascular exam: PRESENT: RRR Pulses: PRESENT: normal radial pulses Vascular exam: PRESENT: normal capillary refill GI/Abdominal exam: PRESENT: soft Rectal exam: PRESENT: deferred Extremities exam: PRESENT: tenderness - over an opened area with surrounding erythema. No drainage when attempted squeezing around it Musculoskeletal exam: PRESENT: ambulatory Neurological exam: PRESENT: alert, oriented to person, oriented to place, oriented to time, oriented to situation Psychiatric exam: PRESENT: appropriate affect Skin exam: PRESENT: normal color, warm Results Impressions: Lower Extremity CT 01/07/18 21:42 IMPRESSION: Left lower leg subcutaneous edema may be due to inflammation or cellulitis. No evidence for fluid collection to suggest abscess. Assessment & Plan - Diagnosis (1) Cellulitis of right lower extremity Is this a current diagnosis for this admission?: Yes (2) IV drug abuse Is this a current diagnosis for this admission?: Yes - Time Time Spent: 30 to 50 Minutes - Inpatient Certification Medical Necessity: Need for IV Antibiotics, Risk of Complication if Not Cared For in Hospital - Plan Summary Plan Summary: No obvious need to drain at this time. Told nurses to place wet to dry dressings BID. Will follow tomorrow Continue IV antibiotics
[2018-01-08] MEDS ORDERED: AMPICILLIN SODIUM/SULBACTAM NA 3 GM in NORMAL SALINE 100 ML IV SCH (09:00)
[2018-01-08] MEDS: ENOXAPARIN SODIUM INJ 40 MG/0.4 ML DISP.SYRIN SUBCUT SCH (09:57)
[2018-01-08] MEDS: AMPICILLIN SOD/SULBACTAM 3 GM VIAL ONE ×2 (09:57→10:10)
[2018-01-08] MEDS: AMPICILLIN SODIUM/SULBACTAM NA 3 GM in NORMAL SALINE 100 ML IV SCH ×3 (10:10→17:15)
[2018-01-08 12:00] LABS: URINE BARBITURATES SCREEN NEGATIVE; URINE BENZODIAZEPINES SCREEN NEGATIVE; URINE COCAINE SCREEN NEGATIVE; URINE METHADONE SCREEN NEGATIVE; URINE PHENCYCLIDINE SCREEN NEGATIVE
--- NOTE | 2018-01-08 12:07 | XCELERA REPORT ---
[address] [place] [facility] [id number] Lower Extremity Venous Evaluation Procedure: Color flow and duplex imaging of the veins of the left lower extremity as well as the right Common Femoral vein. Right Sided Venous Evaluation The right common femoral vein is fully compressible. Spontaneous and phasic flow is present in the right common femoral vein. Left Sided Venous Evaluation Normal vessel filling wall to wall, compression and augmentation as well as Colour flow down to the infrageniculate veins. Subcutaneous lucent areas in the lower leg. noted. Interpretation Summary No duplex evidence of DVT or obstruction in the left lower extremity nor in the right Common Femoral vein. Left sided edema noted on ultrasound. Name: PENNY DIASNAH Alice Age: 27 yrs Gender: Female : 1990 Patient Status: Inpatient Patient Location: [address] [place] [address] Study Date: 01/08/2018 10:12 AM Reason For Study: left leg Ordering Physician: AUGUSTIN MCKEON PA-C Performed By: Lester Jeronimo : AUGUSTIN MCKEON PA-C > Jann Dias
[2018-01-08 12:15] LABS: URINE AMPHETAMINES SCREEN UNCONFIRMED POSITIVE
[2018-01-08 12:16] LABS: URINE MARIJUANA (THC) SCREEN UNCONFIRMED POSITIVE
[2018-01-08] MEDS ORDERED: VANCOMYCIN HCL 750 MG in DEXTROSE 5%-WATER 250 ML IV SCH (14:00)
[2018-01-08 14:15] LABS: PATH REVIEW PATHOLOGIST REVIEWED
--- NOTE | 2018-01-08 14:21 | PDOC PROGRESS REPORT ---
Subjective Progress Note for:: 01/08/18 Subjective:: AILEEN DIAS is a 27 year old female who comes to the emergency department complaining of left lower extremity pain and swelling. Patient was in our facility on January 01, patient was evaluated and was planned to be sent home with p.o. doxycycline and Motrin, unfortunately patient eloped from the ED without any prescription. Patient is known to be IV drug abuser. She denies shooting up in that area. Patient did not have any antibiotics. Patient is back to the ED because her left lower extremity is very swollen, erythematous, she is states that she had a spider bite that now looks necrotic with purulent secretion in the left mid tibial area. Unable to bear weight in that leg. CT of the left lower extremity negative for close fluid collection. 01/08/18: Patient is seen for brief evaluation today after her admission earlier this morning. She remains fairly somnolent but does wake her brief time while I am in the room. I asked her questions to which she did not respond. I asked if she was having any pain and where the location of the pain might be if she was having some and again she did not respond. I roused her long enough to get an answer that the problem with her leg was a spider bite and then she immediately went back to sleep. Exam reveals a significant erythema and edema with some induration of the anterior tibial surface of the left lower extremity and a 2.5 cm diameter ulcerated area with a superficial eschar present which would essentially be typical and consistent with a brown recluse spider bite. Surgical consultation has been ordered. Reason For Visit: LLE CELLULITIS Physical Exam Vital Signs: Temp Pulse Resp BP Pulse Ox 98.4 F 75 18 112/65 100 01/08/18 11:30 01/08/18 11:30 01/08/18 11:30 01/08/18 11:30 01/08/18 11:30 Intake & Output 01/06/18 01/07/18 01/08/18 23:59 23:59 23:59 Intake Total 0 Output Total 0 Balance 0 Weight 79.4 kg General appearance: PRESENT: no acute distress, other - Somnolent and non- cooperative Head exam: PRESENT: atraumatic, normocephalic Respiratory exam: PRESENT: clear to auscultation jose angel, symmetrical, unlabored Cardiovascular exam: PRESENT: RRR. ABSENT: clicks, diastolic murmur, gallop, rubs, systolic murmur Vascular exam: PRESENT: normal capillary refill. ABSENT: pallor Skin exam: PRESENT: other - Erythema and edema of the left lower extremity extending from the foot to the distal thigh. Significant tenderness to palpation is present on palpation throughout the extremity. There is a superficial crater type ulceration of the mid anterior tibial surface approximately 2.5 cm in diameter and covered with a superficial eschar. Results Laboratory Results: 01/08/18 06:35 01/08/18 06:35 01/08/18 01/08/18 06:35 06:35 WBC 7.9 RBC 4.39 Hgb 11.9 L Hct 35.1 L MCV 80 MCH 27.2 MCHC 34.0 RDW 14.6 H Plt Count 305 Seg Neutrophils % Not Reportable Lymphocytes % Not Reportable Monocytes % Not Reportable Eosinophils % Not Reportable Basophils % Not Reportable Absolute Neutrophils Not Reportable Absolute Lymphocytes Not Reportable Absolute Monocytes Not Reportable Absolute Eosinophils Not Reportable Absolute Basophils Not Reportable Sodium 139.8 Potassium 4.8 Chloride 109 H Carbon Dioxide 24 Anion Gap 7 BUN 6 L Creatinine 0.64 Est GFR ( Amer) > 60 Est GFR (Non-Af Amer) > 60 Glucose 94 Calcium 8.6 Impressions: Lower Extremity CT 01/07/18 21:42 IMPRESSION: Left lower leg subcutaneous edema may be due to inflammation or cellulitis. No evidence for fluid collection to suggest abscess. Assessment & Plan - Diagnosis (1) Brown recluse spider bite Qualifiers: Encounter type: initial encounter Injury intent: accidental or unintentional Qualified Code(s): T63.331A - Toxic effect of venom of brown recluse spider, accidental (unintentional), initial encounter Is this a current diagnosis for this admission?: Yes Plan: The patient's physical findings and her wound with the crater-like ulceration and edema with erythema and increased warmth despite a normal white blood count is nearly diagnostic for atypical brown recluse spider bite. An ultrasound to rule out DVT will be obtained and surgical consultation has already been ordered as debridement of the wound may be necessary at some point in the course of healing. (2) Cellulitis of left leg Is this a current diagnosis for this admission?: Yes Plan: This is most likely a toxic cellulitis (spider venom) versus an infectious cellulitis however antibiotic coverage has been initiated and will not be discontinued at this point - Time Time Spent with patient: 15-24 minutes Anticipated discharge: Home
[2018-01-08] MEDS: DOXYCYCLINE HYCLATE 100 MG TABLET PO SCH (22:12)
[2018-01-09] MEDS: ENOXAPARIN SODIUM INJ 40 MG/0.4 ML DISP.SYRIN SUBCUT SCH (10:14)
[2018-01-09] MEDS: DOXYCYCLINE HYCLATE 100 MG TABLET PO SCH (10:16)
--- NOTE | 2018-01-09 10:19 | PDOC DISCHARGE SUMMARY ---
General - Admit/Disc Date/PCP Admission Date/Primary Care Provider: 01/08/18 02:17 Discharge Date: 01/09/18 - Discharge Diagnosis (1) Brown recluse spider bite Is this a current diagnosis for this admission?: Yes Summary: History consistent with brown recluse spider bite. Patient denies injecting heroin into that area. Was initiated on IV antibiotics cultures have been negative times 24 hours white count normal. Patient transition to p.o. doxycycline and can be discharged on a 10-day course. (2) Cellulitis of left leg Is this a current diagnosis for this admission?: Yes Summary: Cultures are negative. Empiric treatment although history consistent with spider venom which may not require antibiotics however patient ulcer was not properly covered or treated in the outpatient setting after she signed out AGAINST MEDICAL ADVICE from the emergency room. (3) IV drug abuse Is this a current diagnosis for this admission?: Yes Summary: Polydrug abuse. Admitted to heroin use tested positive for amphetamine and marijuana. - Additional Information Discharge Diet: As Tolerated Discharge Activity: Activity As Tolerated Prescriptions: Doxycycline Hyclate [Vibramycin 100 mg Tablet] 100 mg PO Q12 #20 tablet Home Medications: Acetaminophen [Tylenol 325 mg Tablet] 650 mg PO Q4HP PRN tablet 01/09/18 Doxycycline Hyclate [Vibramycin 100 mg Tablet] 100 mg PO Q12 #20 tablet History of Present Illness Patient complains of: Ulcer of the left leg History of Present Illness: AILEEN DIAS is a 27 year old female who comes to the emergency department complaining of left lower extremity pain and swelling. Patient was in our facility on January 01, patient was evaluated and was planned to be sent home with p.o. doxycycline and Motrin, unfortunately patient eloped from the ED without any prescription. Patient is known to be IV drug abuser. She denies shooting up in that area. Patient did not have any antibiotics. Patient is back to the ED because her left lower extremity is very swollen, erythematous, she is states that she had a spider bite that now looks necrotic with purulent secretion in the left mid tibial area. Unable to bear weight in that leg. CT of the left lower extremity negative for close fluid collection. Patient is a very uncooperative. Hospital Course Hospital Course: Patient was admitted to the medical floor. Initially started on vancomycin and Unasyn. CT was done which showed no gas or fluid collection. Consultation with surgery was also obtained and the patient was felt not to require any surgical intervention. The patient was uncooperative through most of her hospital stay. She had used heroin the day before had signed out of the emergency room prior to her hospitalization. On the day of discharge patient was requesting discharge. She was transitioned to p.o. vancomycin the day prior to discharge. Arrangements were made for patient to be seen in the wound clinic for ongoing wound care and she was provided a 10-day course of doxycycline. She was instructed on wound care by nurses prior to discharge. She can use ibuprofen for pain management. Discharge planning arranged for patient to have a primary care provider Physical Exam Vital Signs: Temp Pulse Resp BP Pulse Ox 98.0 F 94 16 125/69 100 01/09/18 07:20 01/09/18 07:20 01/09/18 07:20 01/09/18 07:20 01/09/18 07:20 Intake & Output 01/08/18 01/09/18 01/10/18 06:59 06:59 06:59 Intake Total 0 1315 Output Total 0 1600 Balance 0 -285 Weight 79.4 kg 78.6 kg General appearance: PRESENT: no acute distress, well-developed, well-nourished Respiratory exam: PRESENT: clear to auscultation jose angel. ABSENT: rales, rhonchi, wheezes Cardiovascular exam: PRESENT: RRR. ABSENT: diastolic murmur, rubs, systolic murmur Extremities exam: PRESENT: pedal edema - Left leg with tenderness in the calf disproportionate to exam. 2 cm ulcer mid lower extremity with some white eschar consistent with cellular debris. Results Laboratory Results: 01/08/18 06:35 01/08/18 06:35 Impressions: Lower Extremity CT 01/07/18 21:42 IMPRESSION: Left lower leg subcutaneous edema may be due to inflammation or cellulitis. No evidence for fluid collection to suggest abscess. Qualifiers - * PATIENT BEING DISCHARGED WITH ANY OF THE FOLLOWING DIAGNOSIS: No Plan Time Spent: Greater than 30 Minutes
[2018-01-09 11:17] VITALS: BP 122/70
--- NOTE | 2018-01-09 13:29 | PDOC PROGRESS REPORT ---
Subjective Progress Note for:: 01/09/18 Subjective:: pains left leg wound Reason For Visit: LLE CELLULITIS Physical Exam Vital Signs: Temp Pulse Resp BP Pulse Ox 98.0 F 94 16 122/70 100 01/09/18 11:09 01/09/18 11:09 01/09/18 11:09 01/09/18 11:09 01/09/18 11:09 Intake & Output 01/08/18 01/09/18 01/10/18 06:59 06:59 06:59 Intake Total 0 1315 Output Total 0 1600 Balance 0 -285 Weight 79.4 kg 78.6 kg Exam: cellulitis around left leg wound has dramatucally improved. There is almost 2 cm ulceration at the previous abscess site that is dry with no drainage and relatively clean. OK for discharge to be [facility] c/o Dr Yancey. Results Laboratory Results: 01/08/18 06:35 01/08/18 06:35 Impressions: Lower Extremity CT 01/07/18 21:42 IMPRESSION: Left lower leg subcutaneous edema may be due to inflammation or cellulitis. No evidence for fluid collection to suggest abscess. Assessment & Plan - Diagnosis (1) Cellulitis of right lower extremity Is this a current diagnosis for this admission?: Yes (2) IV drug abuse Is this a current diagnosis for this admission?: Yes
== END 2018-01-09 11:41 | disposition home or self-care (01) | DRG 603 ==
LOC: ER 18:42 → EH 01-08 02:17 → 4N 01-08 03:00
PROVIDERS: ADMIT Internal Medicine; ATTEND Internal Medicine
DX: L03.116 Cellulitis of left lower limb (principal); F11.20 Opioid dependence, uncomplicated; T63.331A Toxic effect of venom of brown recluse spider, accidental (unintentional), initial encounter; L03.115 Cellulitis of right lower limb; F41.8 Other specified anxiety disorders; F31.9 Bipolar disorder, unspecified; R40.2252 Coma scale, best verbal response, oriented, at arrival to emergency department; R40.2142 Coma scale, eyes open, spontaneous, at arrival to emergency department; R40.2362 Coma scale, best motor response, obeys commands, at arrival to emergency department; F12.90 Cannabis use, unspecified, uncomplicated; F15.90 Other stimulant use, unspecified, uncomplicated; F17.210 Nicotine dependence, cigarettes, uncomplicated; Y92.89 Other specified places as the place of occurrence of the external cause
CPT/HCPCS: 36415; 80048; 80053; 80307; 80349; 80361; 81025; 83605; 85025; 87040; 93971; 96365; 96375; 99285; G0480; J0295; J1885; J3370; J7030; J7060

== ENCOUNTER 2018-03-24 00:37 | Inpatient (IN) | payer OTHER ==
[2018-03-24] MEDS ORDERED: MORPHINE SULFATE 10 MG/ML INJ IV ONE (01:15)
[2018-03-24] MEDS ORDERED: ONDANSETRON HCL INJ/PF 4 MG/2 ML SDV IV ONE (01:15)
[2018-03-24] MEDS ORDERED: CLINDAMYCIN 600 MG/D5W RTU 600 MG/50 ML RTUPB IV ONE (01:16)
[2018-03-24] MEDS ORDERED: VANCOMYCIN HCL INJ 1000 MG VIAL IV ONE (01:17)
--- NOTE | 2018-03-24 01:54 | RADIOLOGY REPORT (SQ) ---
EXAM DESCRIPTION: AP and lateral views of the tibia CLINICAL HISTORY: 27 years Female, pain COMPARISON: None. FINDINGS: No fracture or dislocation. Soft tissues are unremarkable. IMPRESSION: No acute abnormality.
[2018-03-24 02:17] LABS: ABSOLUTE EOSINOPHILS # (AUTO) 0.3 10^3/uL (0.0-0.6); ABSOLUTE LYMPHOCYTES (AUTO) 3.9 10^3/uL (0.5-4.7); ABSOLUTE MONOCYTES (AUTO) 0.8 10^3/uL (0.1-1.4); ABSOLUTE NEUT (AUTO) 6.9 10^3/uL (1.7-8.2); BASOPHILS % (AUTO) 0.3 % (0-2); EOSINOPHILS % (AUTO) 2.4 % (0-6); HEMATOCRIT 36.8 % (36.0-47.0); HEMOGLOBIN 12.1 g/dL (12.0-15.5); LYMPHOCYTES % (AUTO) 32.9 % (13-45); MEAN CORPUSCULAR HEMOGLOBIN 26.8 pg (27.0-33.4); MEAN CORPUSCULAR HGB CONC 32.9 g/dL (32.0-36.0); MEAN CORPUSCULAR VOLUME 81 fl (80-97); PLATELET COUNT 292 10^3/uL (150-450); RED BLOOD COUNT 4.53 10^6/uL (3.72-5.28); RED CELL DISTRIBUTION WIDTH 16.4 % (11.5-14.0); SEGMENTED NEUTROPHILS % (AUTO) 57.4 % (42-78); TOTAL CELLS COUNTED % (AUTO) 100 %; WHITE BLOOD COUNT 11.9 10^3/uL (4.0-10.5)
[2018-03-24 02:32] LABS: ALANINE AMINOTRANSFERASE 725 U/L (9-52); ALBUMIN 3.5 g/dL (3.5-5.0); ALKALINE PHOSPHATASE 239 U/L (38-126); ANION GAP 8 (5-19); ASPARTATE AMINO TRANSFERASE 529 U/L (14-36); BILIRUBIN,DIRECT 0.6 mg/dL (0.0-0.4); BLOOD UREA NITROGEN 10 mg/dL (7-20); CALCIUM 8.9 mg/dL (8.4-10.2); CARBON DIOXIDE 27 mmol/L (22-30); CHLORIDE 105 mmol/L (98-107); GLUCOSE 112 mg/dL (75-110); POTASSIUM 4.1 mmol/L (3.6-5.0); SODIUM 139.5 mmol/L (137-145); TOTAL PROTEIN 6.7 g/dL (6.3-8.2)
--- NOTE | 2018-03-24 02:47 | ER Document Report ---
Addendum entered and electronically signed by DIEGO SNOW PA-C 03/24/18 07:04: Discharge - Discharge Clinical Impression: Cellulitis Qualifiers: Site of cellulitis: extremity Site of cellulitis of extremity: lower extremity Laterality: left Qualified Code(s): L03.116 - Cellulitis of left lower limb Condition: Stable Disposition: ADMITTED OBSERVATION Admitting Provider: [facility] Admitted: Medical Floor Original Note: ED General - General TRAVEL OUTSIDE OF THE [place] IN LAST 30 DAYS: No <DIEGO SNOW - Last Filed: 03/24/18 03:05> <CARLOS ANGELES - Last Filed: 03/24/18 03:34> - General Chief Complaint: Abscess Stated Complaint: SHORTNESS OF BREATH Time Seen by Provider: 03/24/18 01:04 Notes: This is a 27-year-old female presents to the emergency department complaining of left leg swelling and abscess formation. Patient states last evening she noticed what she thought was a bug bite to the anterior proximal left buck. St ates overnight and into today she has noted that the erythema and swelling has spread which is why she presents to the emergency room. Patient is denying fever. Patient states she was a past IV drug user but states she has not used IV drugs for the last 24 days. Patient states she does have a history of hospital admission for skin infections and was treated for MRSA in the past. Past medical history: Bipolar, anxiety, depression Medications: None Allergies: Trileptal Patient is also requesting a test (DIEGO SNOW) - Related Data Allergies/Adverse Reactions: Choline Fenofibrate [From Trilipix] Allergy (Mild, Verified 01/07/18 23:40) rash oxcarbazepine [From Trileptal] Allergy (Verified 01/07/18 23:40) Past Medical History - General Information source: Patient - Social History Smoking Status: Current Every Day Smoker Drug Abuse: Heroin Family History: Reviewed & Not Pertinent Patient has suicidal ideation: No Patient has homicidal ideation: No Pulmonary Medical History: Reports: Hx Bronchitis Renal/ Medical History: Reports: Hx Pelvic Inflammatory Disease. Denies: Hx Peritoneal Dialysis Psychiatric Medical History: Reports: Hx Anxiety, Hx Bipolar Disorder - mood d/o, Hx Depression Past Surgical History: Reports: Hx Tonsillectomy - Immunizations Hx Diphtheria, Pertussis, Tetanus Vaccination: Yes <DIEGO SNOW - Last Filed: 03/24/18 03:05> Review of Systems - Review of Systems Constitutional: See HPI EENT: No symptoms reported Cardiovascular: No symptoms reported Respiratory: No symptoms reported Gastrointestinal: No symptoms reported Genitourinary: No symptoms reported Female Genitourinary: See HPI Musculoskeletal: See HPI Skin: See HPI Hematologic/Lymphatic: No symptoms reported Neurological/Psychological: No symptoms reported <DIEGO SNOW - Last Filed: 03/24/18 03:05> Physical Exam <DIEGO SNOW - Last Filed: 03/24/18 03:05> - Vital signs Vitals: Temp Pulse Resp BP Pulse Ox 98.5 F 99 20 120/70 98 03/24/18 00:38 03/24/18 00:38 03/24/18 00:38 03/24/18 00:38 03/24/18 00:38 - Notes Notes: GENERAL: Alert, interacts well. No acute distress. HEAD: Normocephalic, atraumatic. EYES: Pupils equal, round, and reactive to light. Extraocular movements intact. ENT: Oral mucosa moist, tongue midline. NECK: Full range of motion. Supple. Trachea midline. LUNGS: Clear to auscultation bilaterally, no wheezes, rales, or rhonchi. No respiratory distress. HEART: Regular rate and rhythm. No murmur ABDOMEN: Soft, non-tender. Non-distended. Bowel sounds present in all 4 quadrants. EXTREMITIES: Moves all 4 extremities spontaneously. No edema, normal radial and dorsalis pedis pulses bilaterally. No cyanosis. BACK: no cervical, thoracic, lumbar midline tenderness. No saddle anesthesia, normal distal neurovascular exam. NEUROLOGICAL: Alert and oriented x3. Normal speech. cranial nerves II through XII grossly intact PSYCH: Normal affect, normal mood. SKIN: Warm, dry, normal turgor. Multiple scab wounds noted to patient's face bilateral arms bilateral lower legs. Patient has an area of 3 cm x 3 cm induration with what appears to be serous drainage surrounding by her entire left buck erythematous with circumferential erythema noted to the distal aspect of the left lower extremity. +1 pitting edema patient's ankles. Capillary refill less than 2 seconds distal left extremity. Full range of motion with pain. (DIEGO SNOW) Course - Laboratory Result Diagrams: 03/24/18 02:05 03/24/18 02:05 <DIEGO SNOW - Last Filed: 03/24/18 03:05> - Laboratory Result Diagrams: 03/24/18 02:05 03/24/18 02:05 <CARLOS ANGELES - Last Filed: 03/24/18 03:34> - Re-evaluation Re-evalutation: 03/24/18 03:10 Initially discussed case with hospitalist Dr. Bowen for admission for cellulitis, abscess formation, IV antibiotics. Dr. Bowen states the patient needs to fail outpatient antibiotics prior to being admitted. He recommends sending the patient home on antibiotics therapy with close follow-up. (DIEGO SNOW) 03/24/18 03:33 Physician's outpatient physical therapist assistant deformity of the patient. I did evaluate her. She does have circumferentially red leg from the knee down to the foot. She has diffuse cellulitis. I do not appreciate an abscess at this time. There is no crepitance to palpation. I do not think she has necrotizing fasciitis however it is concerning that she is had onset of the cellulitis over the last 24 hours involves her entire leg from the knee to the foot. Pain is not out of proportion to exam. I think is appropriate for admission. I did speak with the hospitalist, Dr. Bowen, who agrees to evaluate the patient for admission. Dictation of this chart was performed using voice recognition software; therefore, there may be some unintended grammatical errors. (CARLOS ANGELES) - Vital Signs Vital signs: Temp Pulse Resp BP Pulse Ox 98.5 F 99 20 120/70 98 03/24/18 00:38 03/24/18 00:38 03/24/18 00:38 03/24/18 00:38 03/24/18 00:38 - Laboratory Laboratory results interpreted by me: 03/24/18 03/24/18 02:05 02:05 WBC 11.9 H MCH 26.8 L RDW 16.4 H Glucose 112 H Direct Bilirubin 0.6 H AST 529 H ALT 725 H Alkaline Phosphatase 239 H Discharge <DIEGO SNOW - Last Filed: 03/24/18 03:05> - Discharge Admitting Provider: Hospitalist Unit Admitted: Medical Floor <ANGELES,BRIAN - Last Filed: 03/24/18 03:34> - Discharge Clinical Impression: Cellulitis Qualifiers: Site of cellulitis: extremity Site of cellulitis of extremity: lower extremity Laterality: left Qualified Code(s): L03.116 - Cellulitis of left lower limb Condition: Stable Disposition: ADMITTED OBSERVATION Referrals: LOCALMD,NO [Primary Care Provider] - Follow up as needed
[2018-03-24] MEDS ORDERED: MAG HYDROX/AL HYDROX/SIMETH SUSP 30 ML UDCUP PO PRN (03:34)
[2018-03-24] MEDS ORDERED: SULFAMETHOX/TRIMETH 800-160 MG/10 ML VIAL IV PRN (03:44)
[2018-03-24] MEDS ORDERED: SULFAMETHOXAZOLE/TRIMETHOPRIM 480 MG in DEXTROSE 5%-WATER 1000 ML 750 ML IV ONE (03:45)
[2018-03-24] MEDS ORDERED: NORMAL SALINE 1000 ML 1,000 ML IV PRN (03:45)
[2018-03-24 05:52] LABS: URINE BARBITURATES SCREEN NEGATIVE; URINE BENZODIAZEPINES SCREEN NEGATIVE; URINE COCAINE SCREEN NEGATIVE; URINE METHADONE SCREEN NEGATIVE; URINE PHENCYCLIDINE SCREEN NEGATIVE
[2018-03-24 06:00] LABS: URINE MARIJUANA (THC) SCREEN UNCONFIRMED POSITIVE
[2018-03-24] MEDS: HEPARIN SOD (PORCINE) 5,000 UNIT/ML 1 ML SYRINGE SUBCUT SCH ×3 (06:10→22:02)
--- NOTE | 2018-03-24 06:57 | PDOC H&P ---
History of Present Illness Admission Date/PCP: 03/24/18 03:46 NO LOCALMD Patient complains of: Left leg pain, abscess and ulcer History of Present Illness: AILEEN DIAS is a 27 year old female with a history of ADD, tobacco dependence and IV drug use presents with a painful erythemic abscess to her left lower leg as well as a painless ulcer to her left thigh. Painless ulcer predates abscess. Admits fever chills and increasing pain to the lower leg. In the emergency room she is started on IV vancomycin and referred to the hospitalist for admission. Patient claims a 24-day abstinence of IV drug use. Past Medical History Cardiac Medical History: Reports: None Pulmonary Medical History: Reports: Bronchitis EENT Medical History: Reports: None Neurological Medical History: Reports: None Endocrine Medical History: Reports: None Renal/ Medical History: Reports: None Malignancy Medical History: Reports: None GI Medical History: Reports: None Psychiatric Medical History: Reports: Bipolar Disorder - mood d/o, Depression Past Surgical History Past Surgical History: Reports: Tonsillectomy Social History Information Source: Patient Smoking Status: Current Every Day Smoker Frequency of Alcohol Use: Occasional Hx Recreational Drug Use: Yes Drugs: Heroin - IV drug abuse Hx Prescription Drug Abuse: No - denies - Advance Directive Resuscitation Status: Full Code Family History Parental Family History Reviewed: Yes Children Family History Reviewed: Yes Sibling(s) Family History Reviewed.: Yes Medication/Allergy Home Medications: Acetaminophen [Tylenol 325 mg Tablet] 650 mg PO Q4HP PRN tablet 01/09/18 Doxycycline Hyclate [Vibramycin 100 mg Tablet] 100 mg PO Q12 #20 tablet 01/09/18 Allergies/Adverse Reactions: Choline Fenofibrate [From Trilipix] Allergy (Mild, Verified 01/07/18 23:40) rash oxcarbazepine [From Trileptal] Allergy (Verified 01/07/18 23:40) Review of Systems Constitutional: PRESENT: as per HPI, chills, fatigue, fever(s), night sweats Eyes: ABSENT: visual disturbances Ears: ABSENT: hearing changes Cardiovascular: ABSENT: chest pain, dyspnea on exertion, edema, orthropnea, palpitations Respiratory: ABSENT: cough, hemoptysis Gastrointestinal: ABSENT: abdominal pain, constipation, diarrhea, hematemesis, hematochezia, nausea, vomiting Genitourinary: ABSENT: dysuria, hematuria Musculoskeletal: ABSENT: joint swelling Integumentary: ABSENT: rash, wounds Neurological: ABSENT: abnormal gait, abnormal speech, confusion, dizziness, focal weakness, syncope Psychiatric: ABSENT: anxiety, depression, homidical ideation, suicidal ideation Endocrine: ABSENT: cold intolerance, heat intolerance, polydipsia, polyuria Hematologic/Lymphatic: ABSENT: easy bleeding, easy bruising Physical Exam Vital Signs: Temp Pulse Resp BP Pulse Ox 97.8 F 101 H 16 121/88 H 98 03/24/18 06:00 03/24/18 06:00 03/24/18 06:00 03/24/18 06:00 03/24/18 06:00 Intake & Output 03/22/18 03/23/18 03/24/18 11:59 11:59 11:59 Intake Total 50 Balance 50 Weight 72.9 kg General appearance: PRESENT: cooperative, disheveled, other - Chronically ill- appearing with cachexia and rapid weight loss Head exam: PRESENT: atraumatic, normocephalic Eye exam: PRESENT: conjunctiva pink, EOMI, PERRLA. ABSENT: scleral icterus Ear exam: PRESENT: normal external ear exam Mouth exam: PRESENT: moist, tongue midline Neck exam: ABSENT: carotid bruit, JVD, lymphadenopathy, thyromegaly Respiratory exam: PRESENT: clear to auscultation jose angel. ABSENT: rales, rhonchi, wheezes Cardiovascular exam: PRESENT: RRR. ABSENT: diastolic murmur, rubs, systolic murmur Pulses: PRESENT: normal dorsalis pedis pul Vascular exam: PRESENT: normal capillary refill GI/Abdominal exam: PRESENT: normal bowel sounds, soft. ABSENT: distended, guarding, mass, organolmegaly, rebound, tenderness Rectal exam: PRESENT: deferred Extremities exam: PRESENT: full ROM, other - Left thigh with 2 x 2 centimeter painless ulcer, anterior leg with fluctuant abscess 2 x 2 centimeter with circumferential edema and erythema. ABSENT: calf tenderness, clubbing, pedal edema Neurological exam: PRESENT: alert, awake, oriented to person, oriented to place, oriented to time, oriented to situation, CN II-XII grossly intact. ABSENT: motor sensory deficit Psychiatric exam: PRESENT: appropriate affect, normal mood. ABSENT: homicidal ideation, suicidal ideation Skin exam: PRESENT: other - Left thigh with 2 x 2 centimeter painless ulcer, anterior leg with fluctuant abscess 2 x 2 centimeter with circumferential edema and erythema Results Laboratory Results: 03/24/18 02:05 03/24/18 02:05 03/24/18 03/24/18 03/24/18 02:05 02:05 02:05 WBC 11.9 H RBC 4.53 Hgb 12.1 Hct 36.8 MCV 81 MCH 26.8 L MCHC 32.9 RDW 16.4 H Plt Count 292 Seg Neutrophils % 57.4 Lymphocytes % 32.9 Monocytes % 7.0 Eosinophils % 2.4 Basophils % 0.3 Absolute Neutrophils 6.9 Absolute Lymphocytes 3.9 Absolute Monocytes 0.8 Absolute Eosinophils 0.3 Absolute Basophils 0.0 Sodium 139.5 Potassium 4.1 Chloride 105 Carbon Dioxide 27 Anion Gap 8 BUN 10 Creatinine 0.58 Est GFR ( Amer) > 60 Est GFR (Non-Af Amer) > 60 Glucose 112 H Calcium 8.9 Total Bilirubin 1.0 AST 529 H ALT 725 H Alkaline Phosphatase 239 H Total Protein 6.7 Albumin 3.5 Serum HCG, Qual NEGATIVE Impressions: Tibia/Fibula X-Ray 03/24/18 01:24 IMPRESSION: No acute abnormality. Assessment & Plan - Diagnosis (1) Primary syphilis Is this a current diagnosis for this admission?: Yes Plan: Suggested by painless clean base left thigh ulcer, penicillin G ordered, follow- up RPR, HIV and hepatitis (2) Hepatitis Is this a current diagnosis for this admission?: Yes Plan: LFTs suggest acute hepatitis, follow-up profile (3) IV drug user Is this a current diagnosis for this admission?: Yes Plan: Supportive care, claims 24-day abstinence, consider echocardiogram if persistently positive blood cultures. (4) Cellulitis Qualifiers: Site of cellulitis: extremity Site of cellulitis of extremity: lower extremity Laterality: left Qualified Code(s): L03.116 - Cellulitis of left lower limb Is this a current diagnosis for this admission?: Yes Plan: Surgical consultation, concern for MRSA given IV drug history, follow-up blood culture, CBC and surgical consult. - Time Time Spent: 50 to 70 Minutes - Inpatient Certification Medical Necessity: Need Close Monitoring Due to Risk of Patient Decompensation
[2018-03-24] MEDS ORDERED: WATER IV ONE (07:00)
[2018-03-24] MEDS ORDERED: PENICILLIN POTASSIUM IV ONE (07:00)
[2018-03-24] MEDS ORDERED: DEXTROSE 5% IV ONE (07:00)
[2018-03-24 08:47] LABS: ALANINE AMINOTRANSFERASE 700 U/L (9-52); ALBUMIN 3.5 g/dL (3.5-5.0); ALKALINE PHOSPHATASE 232 U/L (38-126); ANION GAP 7 (5-19); ASPARTATE AMINO TRANSFERASE 486 U/L (14-36); BILIRUBIN,DIRECT 0.7 mg/dL (0.0-0.4); BILIRUBIN,TOTAL 1.1 mg/dL (0.2-1.3); BLOOD UREA NITROGEN 10 mg/dL (7-20); CALCIUM 8.9 mg/dL (8.4-10.2); CARBON DIOXIDE 30 mmol/L (22-30); CHLORIDE 104 mmol/L (98-107); GLUCOSE 109 mg/dL (75-110); POTASSIUM 4.4 mmol/L (3.6-5.0); SODIUM 140.6 mmol/L (137-145); TOTAL PROTEIN 6.7 g/dL (6.3-8.2)
[2018-03-24] MEDS ORDERED: DEXTROSE 40% GEL 15 GM TUBE PO PRN ×2 (09:46)
[2018-03-24] MEDS ORDERED: GLUCAGON,HUMAN RECOMB 1 MG INJ SUBCUT PRN (09:46)
[2018-03-24] MEDS ORDERED: DEXTROSE 50%-WATER 25 GM/50 ML DISP.SYRIN IV PRN ×2 (09:46)
[2018-03-24] MEDS: DOCUSATE SODIUM 100 MG CAPSULE PO SCH ×2 (11:52→17:26)
[2018-03-24] MEDS ORDERED: VANCOMYCIN HCL 0 MG in DEXTROSE 5%-WATER 250 ML IV NR (12:00)
[2018-03-24] MEDS ORDERED: SULFAMETHOXAZOLE/TRIMETHOPRIM 480 MG in DEXTROSE 5%-WATER 1000 ML 750 ML IV SCH (12:00)
[2018-03-24] MEDS: KETOROLAC TROMETHAMINE INJ/PF 30 MG/1 ML SDV IV PRN (12:00)
[2018-03-24] MEDS: PENICILLIN POTASSIUM IV SCH ×3 (12:03→22:02)
[2018-03-24] MEDS: DEXTROSE 5% IV SCH ×3 (12:03→22:02)
[2018-03-24] MEDS: WATER IV SCH ×3 (12:03→22:02)
--- NOTE | 2018-03-24 13:09 | PDOC CONSULTATION ---
Consultation Consult Date: 03/24/18 Consult reason:: Lower extremity abscess History of Present Illness Admission Date/PCP: 03/24/18 03:46 NO LOCALMD Patient complains of: Pain, swelling, redness of the lower extremity. Insect bite. History of Present Illness: AILEEN DIAS is a 27 year old female seen in consultation by request of the hospitalist service. The patient reports a 2-3-day history of a spider bite to the left lower extremity. There has been progressive swelling, tenderness, and erythema of the leg. She rates her pain is 10 out of 10. Her pain is a throbbing, constant sensation. The patient reports subjective fevers and chills. She denies nausea, vomiting, abdominal pain, chest pain, dizziness, orthostasis, headache, hematochezia, hematemesis, melena, shortness of breath, blurry vision, fatigue, malaise. Her pain is worse with palpation, movement, and pressure. Nothing makes her pain better. Past Medical History Cardiac Medical History: Reports: None Pulmonary Medical History: Reports: Bronchitis EENT Medical History: Reports: None Neurological Medical History: Reports: None Endocrine Medical History: Reports: None Renal/ Medical History: Reports: None Malignancy Medical History: Reports: None GI Medical History: Reports: None Psychiatric Medical History: Reports: Bipolar Disorder - mood d/o, Depression Past Surgical History Past Surgical History: Reports: Tonsillectomy Social History Smoking Status: Current Every Day Smoker Frequency of Alcohol Use: Occasional Hx Recreational Drug Use: Yes Drugs: Heroin Hx Prescription Drug Abuse: No - denies - Advance Directive Resuscitation Status: Full Code Family History Family History: Reviewed & Not Pertinent Parental Family History Reviewed: Yes Children Family History Reviewed: Yes Sibling(s) Family History Reviewed.: Yes Medication/Allergy Home Medications: No Home Medications 03/24/18 Allergies/Adverse Reactions: Choline Fenofibrate [From Trilipix] Allergy (Mild, Verified 01/07/18 23:40) rash oxcarbazepine [From Trileptal] Allergy (Verified 01/07/18 23:40) Review of Systems Constitutional: PRESENT: chills, fever(s). ABSENT: fatigue Eyes: ABSENT: visual disturbances Ears: ABSENT: hearing changes Nose, Mouth, and Throat: ABSENT: sore throat Cardiovascular: ABSENT: chest pain, dyspnea on exertion Respiratory: ABSENT: cough Gastrointestinal: ABSENT: abdominal pain, bloating Genitourinary: ABSENT: dysuria Musculoskeletal: ABSENT: back pain Integumentary: PRESENT: other - Swelling, redness, abscess of the left lower extremity Neurological: ABSENT: confusion, convulsions, dizziness Psychiatric: ABSENT: anxiety, depression Endocrine: ABSENT: cold intolerance, heat intolerance Hematologic/Lymphatic: ABSENT: easy bleeding, easy bruising Physical Exam Vital Signs: Temp Pulse Resp BP Pulse Ox 98.7 F 100 16 111/77 100 03/24/18 11:42 03/24/18 11:42 03/24/18 11:42 03/24/18 11:42 03/24/18 11:42 Intake & Output 03/23/18 03/24/18 03/25/18 06:59 06:59 06:59 Intake Total 50 Balance 50 Weight 72.9 kg 75.4 kg General appearance: PRESENT: no acute distress Head exam: PRESENT: atraumatic, normocephalic Eye exam: PRESENT: EOMI, PERRLA Mouth exam: PRESENT: moist, neck supple Teeth exam: PRESENT: poor dentation Neck exam: ABSENT: meningismus, tenderness, thyromegaly, tracheal deviation Respiratory exam: PRESENT: clear to auscultation jose angel, unlabored. ABSENT: chest wall tenderness, tachypnea, wheezes Cardiovascular exam: PRESENT: RRR Pulses: PRESENT: normal radial pulses GI/Abdominal exam: PRESENT: soft. ABSENT: distended, guarding, tenderness Rectal exam: PRESENT: deferred Extremities exam: PRESENT: +1 edema - Left lower extremity, other - Erythema wit h abscess of the left anterior calf Musculoskeletal exam: ABSENT: deformity Neurological exam: PRESENT: alert, awake, oriented to person, oriented to place, oriented to time, oriented to situation, CN II-XII grossly intact Psychiatric exam: PRESENT: agitated. ABSENT: anxious, depressed Focused psych exam: ABSENT: delusional Skin exam: PRESENT: erythema - Left lower extremity, warm - Left lower extremity Results Laboratory Results: 03/24/18 02:05 03/24/18 08:19 03/24/18 03/24/18 03/24/18 02:05 02:05 02:05 WBC 11.9 H RBC 4.53 Hgb 12.1 Hct 36.8 MCV 81 MCH 26.8 L MCHC 32.9 RDW 16.4 H Plt Count 292 Seg Neutrophils % 57.4 Lymphocytes % 32.9 Monocytes % 7.0 Eosinophils % 2.4 Basophils % 0.3 Absolute Neutrophils 6.9 Absolute Lymphocytes 3.9 Absolute Monocytes 0.8 Absolute Eosinophils 0.3 Absolute Basophils 0.0 Sodium 139.5 Potassium 4.1 Chloride 105 Carbon Dioxide 27 Anion Gap 8 BUN 10 Creatinine 0.58 Est GFR ( Amer) > 60 Est GFR (Non-Af Amer) > 60 Glucose 112 H Calcium 8.9 Total Bilirubin 1.0 AST 529 H ALT 725 H Alkaline Phosphatase 239 H Total Protein 6.7 Albumin 3.5 Serum HCG, Qual NEGATIVE 03/24/18 08:19 WBC RBC Hgb Hct MCV MCH MCHC RDW Plt Count Seg Neutrophils % Lymphocytes % Monocytes % Eosinophils % Basophils % Absolute Neutrophils Absolute Lymphocytes Absolute Monocytes Absolute Eosinophils Absolute Basophils Sodium 140.6 Potassium 4.4 Chloride 104 Carbon Dioxide 30 Anion Gap 7 BUN 10 Creatinine 0.67 Est GFR ( Amer) > 60 Est GFR (Non-Af Amer) > 60 Glucose 109 Calcium 8.9 Total Bilirubin 1.1 AST 486 H ALT 700 H Alkaline Phosphatase 232 H Total Protein 6.7 Albumin 3.5 Serum HCG, Qual Impressions: Tibia/Fibula X-Ray 03/24/18 01:24 IMPRESSION: No acute abnormality. Assessment & Plan - Diagnosis (1) Abscess of left lower extremity Is this a current diagnosis for this admission?: Yes - Plan Summary Plan Summary: This is a 27-year-old female with a left lower extremity abscess. She reports that she was bitten by a spider on the leg, and it continued to worsen. The patient will need surgical intervention. The patient was allowed to eat breakfast this morning. I will keep her n.p.o. for 8 hours and plan for surgical intervention this evening. Risks/benefits discussed, informed consent obtained, and all questions answered.
[2018-03-24] MEDS ORDERED: LIDOCAINE 1% INJ-PF (10 MG/ML) 30 ML SDV ONE (16:13)
[2018-03-24] MEDS ORDERED: BUPIVACAINE HCL 0.25 % INJ/PF (2.5 MG/1 ML) 30 ML VIAL ONE (16:13)
[2018-03-24] MEDS ORDERED: MORPHINE SULFATE 10 MG/ML INJ ONE (16:48)
[2018-03-24] MEDS ORDERED: FENTANYL CITRATE INJ/PF 100 MCG/2 ML AMPUL ONE (16:48)
[2018-03-24] MEDS ORDERED: PROPOFOL INJ 200 MG/20 ML VIAL IV ONE (16:49)
--- NOTE | 2018-03-24 17:32 | Operative Report ---
Nonrecallable Operative Report DATE OF SURGERY: 03/24/18 PREOPERATIVE DIAGNOSIS: Left lower extremity abscess POSTOPERATIVE DIAGNOSIS: Left lower extremity abscess. OPERATION: Incision and drainage of left lower extremity abscess with debridement of nonviable skin and fatty soft tissue SURGEON: BRIAN LUIS ANESTHESIA: LMAC TISSUE REMOVED OR ALTERED: Wound culture COMPLICATIONS: None apparent ESTIMATED BLOOD LOSS: Minimal PROCEDURE: Drains/implants: 4 x 4 gauze soaked in Betadine. Procedure in detail: After informed consent was obtained, the patient was brought into the operating room and laid in the supine position. The area of the left lower extremity was prepped and draped in a normal sterile fashion. 1% lidocaine mixed with quarter percent Marcaine was injected into the tissues surrounding the abscess cavity. A 15 blade scalpel was used to sharply excise all necrotic appearing skin and fatty soft tissue. This measured approximately 2 cm x 2 cm. Upon incision into the abscess, a large amount of purulent material was encountered. Wound cultures were taken. The tissue was vigorously cleaned. A vein was found in the base of the wound. This was ligated proximally and distally. Hemostasis was achieved using electrocautery. The wound was packed with 4 x 4 gauze, soaked in Betadine. A dressing was then placed, and the procedure was concluded. All sponge, instrument, and needle counts were correct x2. Condition: Stable.
[2018-03-24] MEDS ORDERED: PROMETHAZINE HCL INJ 25 MG/1 ML VIAL IV PRN (17:56)
[2018-03-24] MEDS ORDERED: FENTANYL CITRATE INJ/PF 100 MCG/2 ML AMPUL IV PRN (17:56)
--- NOTE | 2018-03-24 18:00 | PDOC PROGRESS REPORT ---
Subjective Progress Note for:: 03/24/18 Subjective:: This is unfortunate 27 years old female patient IV drug abuser presented with chief complaint of left leg pain and ulcer. For the same problem patient was seen at [facility] on January 18 but at that time patient disappeared from the ER without getting antibiotics. Patient endorses fever and chills. She denied any nausea, vomiting, abdominal pain or change in her bowel habit. Patient reports that she is free of IV drug abuse for the last 24-day. Her blood work shows mild leukocytosis and markedly elevated liver enzymes. This afternoon patient was taken to the OR by Dr. Arreola who did incision and drainage and total debridement. Per his report he evacuated a large amount of purulent material. And the sample sent for culture. Patient has been getting vancomycin. Reason For Visit: HEPATITIS, LEG CELLULITIS IV DRUG ABUSE Physical Exam Vital Signs: Temp Pulse Resp BP Pulse Ox 98.7 F 100 16 111/77 100 03/24/18 15:03 03/24/18 15:03 03/24/18 15:03 03/24/18 15:03 03/24/18 15:03 Intake & Output 03/23/18 03/24/18 03/25/18 06:59 06:59 06:59 Intake Total 50 950 Balance 50 950 Weight 72.9 kg 75.4 kg General appearance: PRESENT: mild distress Head exam: PRESENT: atraumatic Eye exam: PRESENT: conjunctiva pink Neck exam: ABSENT: carotid bruit, JVD, lymphadenopathy, thyromegaly Respiratory exam: PRESENT: clear to auscultation jose angel. ABSENT: rales, rhonchi, wheezes Cardiovascular exam: PRESENT: RRR. ABSENT: diastolic murmur, rubs, systolic murmur Vascular exam: PRESENT: normal capillary refill Extremities exam: PRESENT: other - Left leg is swollen tender erythematous and there is 2 x 1 cm isolated necrotic lesion at the top Skin exam: PRESENT: other - She has diffuse papular lesions which resembles petechiae Results Laboratory Results: 03/24/18 02:05 03/24/18 08:19 03/24/18 03/24/18 03/24/18 02:05 02:05 02:05 WBC 11.9 H RBC 4.53 Hgb 12.1 Hct 36.8 MCV 81 MCH 26.8 L MCHC 32.9 RDW 16.4 H Plt Count 292 Seg Neutrophils % 57.4 Lymphocytes % 32.9 Monocytes % 7.0 Eosinophils % 2.4 Basophils % 0.3 Absolute Neutrophils 6.9 Absolute Lymphocytes 3.9 Absolute Monocytes 0.8 Absolute Eosinophils 0.3 Absolute Basophils 0.0 Sodium 139.5 Potassium 4.1 Chloride 105 Carbon Dioxide 27 Anion Gap 8 BUN 10 Creatinine 0.58 Est GFR ( Amer) > 60 Est GFR (Non-Af Amer) > 60 Glucose 112 H Calcium 8.9 Total Bilirubin 1.0 AST 529 H ALT 725 H Alkaline Phosphatase 239 H Total Protein 6.7 Albumin 3.5 Serum HCG, Qual NEGATIVE 03/24/18 08:19 WBC RBC Hgb Hct MCV MCH MCHC RDW Plt Count Seg Neutrophils % Lymphocytes % Monocytes % Eosinophils % Basophils % Absolute Neutrophils Absolute Lymphocytes Absolute Monocytes Absolute Eosinophils Absolute Basophils Sodium 140.6 Potassium 4.4 Chloride 104 Carbon Dioxide 30 Anion Gap 7 BUN 10 Creatinine 0.67 Est GFR ( Amer) > 60 Est GFR (Non-Af Amer) > 60 Glucose 109 Calcium 8.9 Total Bilirubin 1.1 AST 486 H ALT 700 H Alkaline Phosphatase 232 H Total Protein 6.7 Albumin 3.5 Serum HCG, Qual Impressions: Tibia/Fibula X-Ray 03/24/18 01:24 IMPRESSION: No acute abnormality. Assessment & Plan - Diagnosis (1) Cellulitis and abscess of left leg Is this a current diagnosis for this admission?: Yes Plan: Status post I&D and total debridement. Patient has been started on vancomycin. She is on morphine for pain control. (2) Elevated liver enzymes Is this a current diagnosis for this admission?: Yes Plan: Etiology unclear. Hepatitis panel is pending. (3) History of intravenous drug abuse Is this a current diagnosis for this admission?: Yes Plan: Patient claims she is clean for the last 24 days (4) History of ADHD Is this a current diagnosis for this admission?: Yes Plan: Stable.
[2018-03-24] MEDS: VANCOMYCIN HCL 750 MG in DEXTROSE 5%-WATER 250 ML IV SCH (19:27)
[2018-03-25] MEDS: DEXTROSE 5% IV SCH ×7 (02:14→22:36)
[2018-03-25] MEDS: WATER IV SCH ×7 (02:14→22:36)
[2018-03-25] MEDS: PENICILLIN POTASSIUM IV SCH ×7 (02:14→22:36)
[2018-03-25] MEDS: VANCOMYCIN HCL 750 MG in DEXTROSE 5%-WATER 250 ML IV SCH ×3 (03:40→22:37)
[2018-03-25] MEDS: HEPARIN SOD (PORCINE) 5,000 UNIT/ML 1 ML SYRINGE SUBCUT SCH ×3 (05:03→22:37)
[2018-03-25 08:37] LABS: HEPATITIS A AB IGM Negative (Negative); HEPATITIS B CORE AB IGM Negative (Negative); HEPATITS B SURFACE ANTIGEN Negative (Negative)
[2018-03-25 09:42] LABS: HEPATITIS C VIRUS ANTIBODY >11.0 s/co ratio (0.0-0.9)
[2018-03-25] MEDS: DOCUSATE SODIUM 100 MG CAPSULE PO SCH ×2 (09:57→18:09)
--- NOTE | 2018-03-25 16:13 | PDOC PROGRESS REPORT ---
Subjective Progress Note for:: 03/25/18 Subjective:: Patient sitting up in bed and enjoying her lunch. She reports this her leg pain is improving and the pain is well controlled with morphine sulfate. Her blood and wound culture grew gram-positive cocci in cluster. Suspicious identification is pending. Currently patient has been getting vancomycin. Her hepatitis panel is positive for hep C. I have a long discussion with the patient that the consequence of continuing IV drug abuse and also about hepatitis C. I counseled and encouraged her to remain clean. And she voices agreement. Reason For Visit: HEPATITIS, LEG CELLULITIS IV DRUG ABUSE Physical Exam Vital Signs: Temp Pulse Resp BP Pulse Ox 98.6 F 116 H 16 125/61 100 03/25/18 15:07 03/25/18 15:07 03/25/18 15:07 03/25/18 15:07 03/25/18 15:07 Intake & Output 03/24/18 03/25/18 03/26/18 06:59 06:59 06:59 Intake Total 50 2920 971 Output Total 2 Balance 50 2918 971 Weight 72.9 kg 80.3 kg General appearance: PRESENT: no acute distress Eye exam: PRESENT: conjunctiva pink Mouth exam: PRESENT: moist Neck exam: ABSENT: carotid bruit, JVD, lymphadenopathy, thyromegaly Respiratory exam: PRESENT: clear to auscultation jose angel. ABSENT: rales, rhonchi, wheezes Cardiovascular exam: PRESENT: RRR. ABSENT: diastolic murmur, rubs, systolic murmur GI/Abdominal exam: PRESENT: normal bowel sounds, soft. ABSENT: distended, guarding, mass, organolmegaly, rebound, tenderness Extremities exam: PRESENT: other - Left leg swelling tenderness and erythema is slightly decreased. Neurological exam: PRESENT: alert, awake Psychiatric exam: PRESENT: normal mood Results Laboratory Results: 03/24/18 02:05 03/24/18 08:19 Impressions: Tibia/Fibula X-Ray 03/24/18 01:24 IMPRESSION: No acute abnormality. Assessment & Plan - Diagnosis (1) Gram-positive bacteremia Is this a current diagnosis for this admission?: Yes Plan: The source is her left leg abscess. Patient has been on vancomycin and I will escalate or de-escalate her antibiotics based on her suspicious identification clinical response and sensitivity pattern. (2) Cellulitis and abscess of left leg Is this a current diagnosis for this admission?: Yes Plan: To vancomycin and wound care (3) Elevated liver enzymes Is this a current diagnosis for this admission?: Yes Plan: It is due to hepatitis C. The liver enzymes are trending down. (4) Hepatitis C Qualifiers: Viral hepatitis chronicity: unspecified Is this a current diagnosis for this admission?: Yes Plan: Patient needs outpatient follow-up with survey research manager. (5) History of intravenous drug abuse Is this a current diagnosis for this admission?: Yes Plan: Patient claims she is clean for the last 24 days (6) History of ADHD Is this a current diagnosis for this admission?: Yes Plan: Stable.
[2018-03-25 18:30] LABS: VANCOMYCIN,TROUGH 8.5 ug/mL (5.0-20.0)
--- NOTE | 2018-03-25 18:43 | PDOC PROGRESS REPORT ---
Subjective Reason For Visit: HEPATITIS, LEG CELLULITIS IV DRUG ABUSE Physical Exam Vital Signs: Temp Pulse Resp BP Pulse Ox 98.6 F 116 H 16 125/61 100 03/25/18 15:07 03/25/18 15:07 03/25/18 15:07 03/25/18 15:07 03/25/18 15:07 Intake & Output 03/24/18 03/25/18 03/26/18 06:59 06:59 06:59 Intake Total 50 2920 1071 Output Total 2 Balance 50 2918 1071 Weight 72.9 kg 80.3 kg Results Laboratory Results: 03/24/18 02:05 03/24/18 08:19 Impressions: Tibia/Fibula X-Ray 03/24/18 01:24 IMPRESSION: No acute abnormality. Assessment & Plan - Diagnosis (1) Abscess of left lower extremity Is this a current diagnosis for this admission?: Yes - Plan Summary Plan Summary: This is a 27-year-old female status post incision and drainage of a left lower extremity abscess. Her erythema is much improved. Her wound is clean, without active purulence. Damp dressing changes twice daily. The patient may be discharged when okay with her medical doctors. No further surgical intervention is likely to be necessary. It is okay to shower with soap and water. She should follow-up with me at [facility] in 1-2 weeks. I will see her again on an as-needed basis. Please renotify with any questions or concerns.
[2018-03-26] MEDS: VANCOMYCIN HCL 750 MG in DEXTROSE 5%-WATER 250 ML IV SCH (02:15)
[2018-03-26] MEDS: PENICILLIN POTASSIUM IV SCH ×2 (02:16→12:59)
[2018-03-26] MEDS: WATER IV SCH ×2 (02:16→12:59)
[2018-03-26] MEDS: DEXTROSE 5% IV SCH ×2 (02:16→12:59)
[2018-03-26 05:19] LABS: ABSOLUTE BASOPHILS # (AUTO) 0.1 10^3/uL (0.0-0.2); ABSOLUTE EOSINOPHILS # (AUTO) 0.3 10^3/uL (0.0-0.6); ABSOLUTE LYMPHOCYTES (AUTO) 3.4 10^3/uL (0.5-4.7); ABSOLUTE MONOCYTES (AUTO) 0.7 10^3/uL (0.1-1.4); BASOPHILS % (AUTO) 0.9 % (0-2); EOSINOPHILS % (AUTO) 3.1 % (0-6); HEMATOCRIT 36.4 % (36.0-47.0); LYMPHOCYTES % (AUTO) 35.9 % (13-45); MEAN CORPUSCULAR HEMOGLOBIN 26.7 pg (27.0-33.4); MEAN CORPUSCULAR VOLUME 81 fl (80-97); MONOCYTES % (AUTO) 7.2 % (3-13); PLATELET COUNT 387 10^3/uL (150-450); RED BLOOD COUNT 4.49 10^6/uL (3.72-5.28); RED CELL DISTRIBUTION WIDTH 17.3 % (11.5-14.0); SEGMENTED NEUTROPHILS % (AUTO) 52.9 % (42-78); TOTAL CELLS COUNTED % (AUTO) 100 %; WHITE BLOOD COUNT 9.5 10^3/uL (4.0-10.5)
[2018-03-26] MEDS: HEPARIN SOD (PORCINE) 5,000 UNIT/ML 1 ML SYRINGE SUBCUT SCH ×3 (06:08→22:06)
[2018-03-26] MEDS: DOCUSATE SODIUM 100 MG CAPSULE PO SCH ×2 (09:16→17:10)
[2018-03-26] MEDS: VANCOMYCIN HCL 1,000 MG in DEXTROSE 5%-WATER 250 ML IV SCH ×2 (09:39→17:11)
--- NOTE | 2018-03-26 12:12 | PDOC PROGRESS REPORT ---
Subjective Progress Note for:: 03/26/18 Subjective:: Patient is seen and examined at bedside. Her left leg pain is subsiding. Her wound culture grew MRSA. Her hepatitis panel is positive for hep C. Her RPR is nonreactive. Her blood culture is positive for gram-positive cocci in cluster and suspicious identification is pending. I will continue vancomycin for now. Reason For Visit: HEPATITIS, LEG CELLULITIS IV DRUG ABUSE Physical Exam Vital Signs: Temp Pulse Resp BP Pulse Ox 98.0 F 91 17 109/65 100 03/26/18 07:29 03/26/18 07:29 03/26/18 07:29 03/26/18 07:29 03/26/18 07:29 Intake & Output 03/25/18 03/26/18 03/27/18 06:59 06:59 06:59 Intake Total 2920 2461 Output Total 2 Balance 2918 2461 Weight 80.3 kg 84.2 kg General appearance: PRESENT: no acute distress Eye exam: PRESENT: conjunctiva pink Mouth exam: PRESENT: moist Neck exam: ABSENT: carotid bruit, JVD, lymphadenopathy, thyromegaly Respiratory exam: PRESENT: clear to auscultation jose angel. ABSENT: rales, rhonchi, wheezes Cardiovascular exam: PRESENT: RRR. ABSENT: diastolic murmur, rubs, systolic murmur GI/Abdominal exam: PRESENT: normal bowel sounds, soft. ABSENT: distended, guarding, mass, organolmegaly, rebound, tenderness Neurological exam: PRESENT: alert, awake, oriented to time, oriented to situatio n Results Laboratory Results: 03/26/18 04:31 03/24/18 08:19 03/26/18 04:31 WBC 9.5 RBC 4.49 Hgb 12.0 Hct 36.4 MCV 81 MCH 26.7 L MCHC 33.0 RDW 17.3 H Plt Count 387 Seg Neutrophils % 52.9 Lymphocytes % 35.9 Monocytes % 7.2 Eosinophils % 3.1 Basophils % 0.9 Absolute Neutrophils 5.0 Absolute Lymphocytes 3.4 Absolute Monocytes 0.7 Absolute Eosinophils 0.3 Absolute Basophils 0.1 Impressions: Tibia/Fibula X-Ray 03/24/18 01:24 IMPRESSION: No acute abnormality. Assessment & Plan - Diagnosis (1) Gram-positive bacteremia Is this a current diagnosis for this admission?: Yes Plan: Continue vancomycin. I will repeat her blood culture. (2) Cellulitis and abscess of left leg Is this a current diagnosis for this admission?: Yes Plan: Wound culture positive for MRSA. Vancomycin. (3) Elevated liver enzymes Is this a current diagnosis for this admission?: Yes Plan: It is due to hepatitis C. The liver enzymes are trending down. (4) Hepatitis C Qualifiers: Viral hepatitis chronicity: unspecified Is this a current diagnosis for this admission?: Yes Plan: Patient needs outpatient follow-up with [facility]. (5) History of intravenous drug abuse Is this a current diagnosis for this admission?: Yes Plan: Patient claims she is clean for the last 24 days (6) History of ADHD Is this a current diagnosis for this admission?: Yes Plan: Stable.
[2018-03-26] MEDS: MORPHINE SULFATE 10 MG/ML INJ IV PRN (22:18)
[2018-03-26] MEDS: KETOROLAC TROMETHAMINE INJ/PF 30 MG/1 ML SDV IV PRN (22:18)
[2018-03-27] MEDS: VANCOMYCIN HCL 1,000 MG in DEXTROSE 5%-WATER 250 ML IV SCH ×2 (03:27→10:53)
[2018-03-27] MEDS: MORPHINE SULFATE 10 MG/ML INJ IV PRN ×2 (04:12→19:49)
[2018-03-27 06:32] LABS: ABSOLUTE EOSINOPHILS # (AUTO) 0.3 10^3/uL (0.0-0.6); ABSOLUTE LYMPHOCYTES (AUTO) 5.6 10^3/uL (0.5-4.7); ABSOLUTE MONOCYTES (AUTO) 0.6 10^3/uL (0.1-1.4); ABSOLUTE NEUT (AUTO) 6.2 10^3/uL (1.7-8.2); BASOPHILS % (AUTO) 0.2 % (0-2); EOSINOPHILS % (AUTO) 2.6 % (0-6); HEMATOCRIT 37.5 % (36.0-47.0); HEMOGLOBIN 12.5 g/dL (12.0-15.5); LYMPHOCYTES % (AUTO) 43.9 % (13-45); MEAN CORPUSCULAR HEMOGLOBIN 26.8 pg (27.0-33.4); MEAN CORPUSCULAR HGB CONC 33.3 g/dL (32.0-36.0); MEAN CORPUSCULAR VOLUME 81 fl (80-97); PLATELET COUNT 417 10^3/uL (150-450); RED BLOOD COUNT 4.66 10^6/uL (3.72-5.28); RED CELL DISTRIBUTION WIDTH 16.6 % (11.5-14.0); SEGMENTED NEUTROPHILS % (AUTO) 48.3 % (42-78); TOTAL CELLS COUNTED % (AUTO) 100 %; WHITE BLOOD COUNT 12.8 10^3/uL (4.0-10.5)
[2018-03-27] MEDS: HEPARIN SOD (PORCINE) 5,000 UNIT/ML 1 ML SYRINGE SUBCUT SCH ×3 (06:43→21:44)
[2018-03-27 10:36] LABS: VANCOMYCIN,TROUGH 10.2 ug/mL (5.0-20.0)
[2018-03-27] MEDS: DOCUSATE SODIUM 100 MG CAPSULE PO SCH ×2 (10:53→19:37)
--- NOTE | 2018-03-27 12:37 | PDOC PROGRESS REPORT ---
Subjective Progress Note for:: 03/27/18 Subjective:: This is unfortunate 27 years old female patient IV drug abuser presented with chief complaint of left leg pain and ulcer. Of note for the same problem patient was seen at [facility] on January 18 but at that time patient disappeared from the ER without getting antibiotics. Patient endorses fever and chills. She denied any nausea, vomiting, abdominal pain or change in her bowel habit. Her wound culture grew MRSA. And her blood culture is positive for gram-positive cocci in cluster. Patient was taken to the OR by Dr. Arreola who did I&D and total debridement. And his operative report stated that evacuated large amount of purulent material. Patient is serology is negative for HIV and syphilis. But her hepatitis panel positive for hep C. Her liver function test showed elevated liver enzymes. Currently patient is being treated with IV vancomycin. Patient is uncooperative and she sneaks out from her floor frequently. Reason For Visit: HEPATITIS, LEG CELLULITIS IV DRUG ABUSE Physical Exam Vital Signs: Temp Pulse Resp BP Pulse Ox 98.6 F 107 H 16 120/66 100 03/27/18 08:24 03/27/18 08:24 03/27/18 08:24 03/27/18 08:24 03/27/18 08:24 Intake & Output 03/26/18 03/27/18 03/28/18 06:59 06:59 06:59 Intake Total 2461 1791 Balance 2461 1791 Weight 84.2 kg 83.7 kg General appearance: PRESENT: no acute distress Head exam: PRESENT: atraumatic Eye exam: PRESENT: conjunctiva pink Mouth exam: PRESENT: moist Neck exam: ABSENT: carotid bruit, JVD, lymphadenopathy, thyromegaly Respiratory exam: PRESENT: clear to auscultation jose angel. ABSENT: rales, rhonchi, wheezes Cardiovascular exam: PRESENT: RRR. ABSENT: diastolic murmur, rubs, systolic murmur GI/Abdominal exam: PRESENT: normal bowel sounds, soft. ABSENT: distended, guarding, mass, organolmegaly, rebound, tenderness Neurological exam: PRESENT: alert, awake Results Laboratory Results: 03/27/18 06:13 03/27/18 10:02 03/27/18 03/27/18 06:13 10:02 WBC 12.8 H RBC 4.66 Hgb 12.5 Hct 37.5 MCV 81 MCH 26.8 L MCHC 33.3 RDW 16.6 H Plt Count 417 Seg Neutrophils % 48.3 Lymphocytes % 43.9 Monocytes % 5.0 Eosinophils % 2.6 Basophils % 0.2 Absolute Neutrophils 6.2 Absolute Lymphocytes 5.6 H Absolute Monocytes 0.6 Absolute Eosinophils 0.3 Absolute Basophils 0.0 Creatinine 0.62 Est GFR ( Amer) > 60 Est GFR (Non-Af Amer) > 60 03/24/18 17:14 Leg - Left Side Abscess Gram Stain - Final 03/24/18 02:47 Blood Blood Culture - Final Staphylococcus Epidermidis Impressions: Tibia/Fibula X-Ray 03/24/18 01:24 IMPRESSION: No acute abnormality. Assessment & Plan - Diagnosis (1) Gram-positive bacteremia Is this a current diagnosis for this admission?: Yes Plan: Continue vancomycin. I will repeat her blood culture. (2) Cellulitis and abscess of left leg Is this a current diagnosis for this admission?: Yes Plan: Wound culture positive for MRSA. Vancomycin. (3) Elevated liver enzymes Is this a current diagnosis for this admission?: Yes Plan: It is due to hepatitis C. The liver enzymes are trending down. 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 (5) History of intravenous drug abuse Is this a current diagnosis for this admission?: Yes Plan: Patient claims she is clean for the last 24 days (6) History of ADHD Is this a current diagnosis for this admission?: Yes Plan: Stable.
--- NOTE | 2018-03-27 17:33 | Operative Report ---
Bedside Procedure - History of Present Illness Indication for Procedure: venous access Surgeon: CARITO MIKE - Central Line Right Subclavian Time completed: 17:32 Consent obtained: Yes Central line pre-insertion: Sterile PPE donned, Chloraprep applied Central line size (Fr.): 16 Central line lumen type: Triple Anesthetic type: 1% Lidocaine mL's of anesthesia: 5 Ultrasound guided: No CM at insertion site: 15 Line secured with sutures: Yes Central line post-insertion: Biopatch applied, Sutured, Sterile dressing applied, Position confirmed w/ CXR Number of attempts: 1 Complications: No
--- NOTE | 2018-03-27 18:25 | RADIOLOGY REPORT (SQ) ---
EXAM DESCRIPTION: CHEST SINGLE VIEW COMPLETED DATE/TIME: 03/27/2018 6:12 pm REASON FOR STUDY: check central line placement COMPARISON: None. EXAM PARAMETERS: NUMBER OF VIEWS: One view. TECHNIQUE: Single frontal radiographic view of the chest acquired. RADIATION DOSE: NA LIMITATIONS: None. FINDINGS: LUNGS AND PLEURA: No opacities, masses or pneumothorax. No pleural effusion. MEDIASTINUM AND HILAR STRUCTURES: No masses. Contour normal. HEART AND VASCULAR STRUCTURES: Heart normal in size. Normal vasculature. BONES: No acute findings. HARDWARE: Right subclavian catheter with the tip in the superior vena cava. OTHER: No other significant finding. IMPRESSION: Catheter placement as described. No pneumothorax. TECHNICAL DOCUMENTATION: JOB ID: [id number] [employer]- All Rights Reserved Reading location - IP/workstation name: [email or web address]
[2018-03-27] MEDS ORDERED: NICOTINE 21 MG/24 HR PATCH.TD24 TD ONE (18:45)
[2018-03-27] MEDS: VANCOMYCIN HCL 1,250 MG in DEXTROSE 5%-WATER 250 ML IV SCH (19:30)
[2018-03-27] MEDS: KETOROLAC TROMETHAMINE INJ/PF 30 MG/1 ML SDV IV PRN (19:49)
[2018-03-28] MEDS: VANCOMYCIN HCL 1,250 MG in DEXTROSE 5%-WATER 250 ML IV SCH ×3 (02:53→17:43)
[2018-03-28] MEDS: HEPARIN SOD (PORCINE) 5,000 UNIT/ML 1 ML SYRINGE SUBCUT SCH ×3 (05:19→21:58)
[2018-03-28 06:30] LABS: ALANINE AMINOTRANSFERASE 195 U/L (9-52); ALBUMIN 3.3 g/dL (3.5-5.0); ALKALINE PHOSPHATASE 168 U/L (38-126); ANION GAP 5 (5-19); ASPARTATE AMINO TRANSFERASE 45 U/L (14-36); BILIRUBIN,DIRECT 0.2 mg/dL (0.0-0.4); BILIRUBIN,TOTAL 0.4 mg/dL (0.2-1.3); BLOOD UREA NITROGEN 14 mg/dL (7-20); CALCIUM 8.8 mg/dL (8.4-10.2); CARBON DIOXIDE 28 mmol/L (22-30); CHLORIDE 108 mmol/L (98-107); GLUCOSE 94 mg/dL (75-110); POTASSIUM 4.6 mmol/L (3.6-5.0); SODIUM 140.9 mmol/L (137-145); TOTAL PROTEIN 6.4 g/dL (6.3-8.2)
[2018-03-28] MEDS: KETOROLAC TROMETHAMINE INJ/PF 30 MG/1 ML SDV IV PRN ×2 (09:44→18:43)
[2018-03-28] MEDS: MORPHINE SULFATE 10 MG/ML INJ IV PRN ×2 (09:44→18:44)
[2018-03-28] MEDS: DOCUSATE SODIUM 100 MG CAPSULE PO SCH ×2 (09:47→18:28)
--- NOTE | 2018-03-28 17:09 | PDOC PROGRESS REPORT ---
Subjective Progress Note for:: 03/28/18 Subjective:: No adverse events overnight. When I came into the room she looked half-asleep, sitting up in the bed leaning forward with her eyes closed and I had to call her name a few times before she looked up at me. No fevers. I went to look at the dressing on her leg and before I even could touch the bandage she started to wince in pain. Reason For Visit: HEPATITIS, LEG CELLULITIS IV DRUG ABUSE Physical Exam Vital Signs: Temp Pulse Resp BP Pulse Ox 98.1 F 94 17 108/64 98 03/28/18 15:09 03/28/18 15:09 03/28/18 15:09 03/28/18 15:09 03/28/18 15:09 Intake & Output 03/27/18 03/28/18 03/29/18 06:59 06:59 06:59 Intake Total 1790 1929 250 Balance 1790 1929 250 Weight 83.7 kg 84.4 kg General appearance: PRESENT: no acute distress, cooperative, disheveled Respiratory exam: PRESENT: clear to auscultation jose angel, symmetrical, unlabored. ABSENT: accessory muscle use, rales, rhonchi, tachypnea, wheezes Cardiovascular exam: PRESENT: RRR, +S1, +S2 Vascular exam: PRESENT: normal capillary refill GI/Abdominal exam: PRESENT: normal bowel sounds, soft. ABSENT: distended, guarding, rebound, tenderness Extremities exam: PRESENT: other - There is a clean bandage overlying the wound on her left leg below the knee. There is minimal surrounding erythema.. ABSENT: clubbing, pedal edema Musculoskeletal exam: PRESENT: normal inspection. ABSENT: deformity Neurological exam: PRESENT: awake, oriented to person, oriented to place, oriented to situation Psychiatric exam: PRESENT: flat affect Skin exam: PRESENT: dry, warm Results Laboratory Results: 03/27/18 06:13 03/28/18 05:55 03/28/18 05:55 Sodium 140.9 Potassium 4.6 Chloride 108 H Carbon Dioxide 28 Anion Gap 5 BUN 14 Creatinine 0.63 Est GFR ( Amer) > 60 Est GFR (Non-Af Amer) > 60 Glucose 94 Calcium 8.8 Total Bilirubin 0.4 AST 45 H ALT 195 H Alkaline Phosphatase 168 H Total Protein 6.4 Albumin 3.3 L 03/24/18 17:14 Leg - Left Side Abscess Gram Stain - Final Impressions: Tibia/Fibula X-Ray 03/24/18 01:24 IMPRESSION: No acute abnormality. Chest X-Ray 03/27/18 00:00 IMPRESSION: Catheter placement as described. No pneumothorax. Assessment & Plan - Diagnosis (1) Cellulitis and abscess of left leg Is this a current diagnosis for this admission?: Yes Plan: She is growing MRSA out of the wound but it is sensitive to Bactrim. She had one blood culture was positive for Staphylococcus epidermidis and repeat cultures have been drawn. If these cultures are negative, we may be able to send her home to complete a course of treatment on Bactrim. - Time Time Spent with patient: 15-24 minutes
[2018-03-28] MEDS ORDERED: NICOTINE 21 MG/24 HR PATCH.TD24 TD SCH (18:00)
[2018-03-28 18:34] LABS: VANCOMYCIN,TROUGH 14.7 ug/mL (5.0-20.0)
[2018-03-29] MEDS: VANCOMYCIN HCL 1,250 MG in DEXTROSE 5%-WATER 250 ML IV SCH ×2 (02:47→10:17)
[2018-03-29] MEDS: HEPARIN SOD (PORCINE) 5,000 UNIT/ML 1 ML SYRINGE SUBCUT SCH (05:08)
[2018-03-29] MEDS: MORPHINE SULFATE 10 MG/ML INJ IV PRN (10:17)
[2018-03-29] MEDS: DOCUSATE SODIUM 100 MG CAPSULE PO SCH (10:18)
[2018-03-29 12:34] VITALS: BP 109/80
--- NOTE | 2018-03-29 18:19 | PDOC DISCHARGE SUMMARY ---
General - Admit/Disc Date/PCP Admission Date/Primary Care Provider: 03/24/18 03:46 NO LOCALMD Discharge Date: 03/29/18 - Discharge Diagnosis (1) Cellulitis and abscess of left leg Is this a current diagnosis for this admission?: Yes Summary: She had an I&D. Cultures showed MRSA that was sensitive to Bactrim. Blood cultures were negative. She will finish her course of Bactrim at home. She will do dressing changes at home and follow-up with orthopedics as an outpatient. - Additional Information Resuscitation Status: Full Code Discharge Diet: Regular Discharge Activity: Activity As Tolerated, No tub bath Prescriptions: Sulfamethoxazole/Trimethoprim [Bactrim Ds Tablet] 1 each PO BID #20 tablet Home Medications: Sulfamethoxazole/Trimethoprim [Bactrim Ds Tablet] 1 each PO BID #20 tablet 03/29/18 History of Present Illness History of Present Illness: AILEEN DIAS is a 27 year old female with a history of ADD, tobacco dependence and IV drug use presents with a painful erythemic abscess to her left lower leg as well as a painless ulcer to her left thigh. Painless ulcer predates abscess. Admits fever chills and increasing pain to the lower leg. In the emergency room she is started on IV vancomycin and referred to the hospitalist for admission. Patient claims a 24-day abstinence of IV drug use. Hospital Course Hospital Course: She had an I&D from orthopedics and cultures were taken which showed MRSA. She had blood cultures done that initially showed 1 bottle positive but it turned out that this was a contaminant, staph epidermidis. Repeat cultures were negative. She can do dressing changes at home. The organism was shown to be sensitive to Bactrim and she will complete a course of that at home. She said that she has abstained from IV drug use for 24 days prior to admission, we encouraged her to continue to do so. Her labs and examination were reassuring and she was discharged today in good condition. Physical Exam Vital Signs: Temp Pulse Resp BP Pulse Ox 98.7 F 102 H 17 111/77 97 03/29/18 12:25 03/29/18 12:25 03/29/18 12:25 03/29/18 12:25 03/29/18 12:25 Intake & Output 03/28/18 03/29/18 03/30/18 06:59 06:59 06:59 Intake Total 1930 2254 707 Balance 1929 2253 250 Weight 84.4 kg 77.8 kg General appearance: PRESENT: no acute distress, cooperative, disheveled Respiratory exam: PRESENT: clear to auscultation jose angel, symmetrical, unlabored. ABSENT: accessory muscle use, rales, rhonchi, tachypnea, wheezes Cardiovascular exam: PRESENT: RRR, +S1, +S2 Vascular exam: PRESENT: normal capillary refill GI/Abdominal exam: PRESENT: normal bowel sounds, soft. ABSENT: distended, guarding, rebound, tenderness Extremities exam: PRESENT: other - There is a clean bandage overlying the wound on her left leg below the knee. There is minimal surrounding erythema.. ABSENT: clubbing, pedal edema Musculoskeletal exam: PRESENT: normal inspection. ABSENT: deformity Neurological exam: PRESENT: awake, oriented to person, oriented to place, oriented to situation Psychiatric exam: PRESENT: flat affect Skin exam: PRESENT: dry, warm Results Laboratory Results: 03/27/18 06:13 03/28/18 05:55 03/24/18 17:14 Leg - Left Side Abscess Gram Stain - Final 03/24/18 17:14 Leg - Left Side Abscess Wound Culture - Final Mrsa (Meth Resis Staph Aureus) Strep Anginosus Group Haemophilus Parainflu No Anaerobic Organisms 03/24/18 02:05 Blood Blood Culture - Final NO GROWTH IN 5 DAYS Impressions: Tibia/Fibula X-Ray 03/24/18 01:24 IMPRESSION: No acute abnormality. Chest X-Ray 03/27/18 00:00 IMPRESSION: Catheter placement as described. No pneumothorax. Qualifiers - * PATIENT BEING DISCHARGED WITH ANY OF THE FOLLOWING DIAGNOSIS: No
== END 2018-03-29 14:00 | disposition home or self-care (01) | DRG 572 ==
LOC: ER 00:37 → EH 03:46 → OBSVTOIN 03:46 → 4S 07:40
PROVIDERS: ADMIT Internal Medicine; ATTEND Internal Medicine
PROC: 0JBP0ZZ Excision of Left Lower Leg Subcutaneous Tissue and Fascia, Open Approach (ICD-10-PCS; principal; 2018-03-24 17:00)
PROC: 02HV33Z Insertion of Infusion Device into Superior Vena Cava, Percutaneous Approach (ICD-10-PCS; 2018-03-27)
DX: L02.416 Cutaneous abscess of left lower limb (principal); L03.116 Cellulitis of left lower limb; B95.62 Methicillin resistant Staphylococcus aureus infection as the cause of diseases classified elsewhere; F31.9 Bipolar disorder, unspecified; F19.10 Other psychoactive substance abuse, uncomplicated; B19.20 Unspecified viral hepatitis C without hepatic coma; F90.9 Attention-deficit hyperactivity disorder, unspecified type; F17.210 Nicotine dependence, cigarettes, uncomplicated; F41.9 Anxiety disorder, unspecified; Z88.8 Allergy status to other drugs, medicaments and biological substances; Z79.899 Other long term (current) drug therapy
CPT/HCPCS: 00400; 36415; 71045; 80053; 80074; 80202; 80307; 82565; 84703; 85025; 86592; 86701; 87040; 87070; 87075; 87077; 87186; 87205; 96365; 96366; 96368; 96375; 99284; C1751; J1644; J1885; J2270; J2405; J2540; J2704; J3010; J3370; J3490; J7060

== ENCOUNTER 2020-01-30 21:28 | Inpatient (IN) | payer OTHER ==
--- NOTE | 2020-01-30 21:46 | ER Document Report ---
ED Medical Screen (RME) - General Chief Complaint: Abscess Stated Complaint: POSSBLE ABCESS/LEG UNDER ARM ELBOW ABOVE EYE Time Seen by Provider: 01/30/20 21:40 Primary Care Provider: IRAIS GUERRERO [Primary Care Provider] - Follow up as needed Mode of Arrival: Ambulatory Information source: Patient Notes: 29-year-old female presents to ED for an abscess to the right lower leg right axilla the right eyebrow and the back of the left elbow. She states she does have a history of MRSA in the beginning of this year. She states she does smoke 2 packs a day and she is a heroin addict. She did use heroin this morning. She states she really wants to get off of the heroin but she needs someone to help her but she does not want to just be started on some other replacement medicine that she is can become addicted to. Will order blood and urine and she will be seen by another provider. Patient states she cannot get stuck on the arms because nobody ever hits the arms they did need to go into the neck in order to get the blood. I have greeted and performed a rapid initial assessment of this patient. A comprehensive ED assessment and evaluation of the patient, analysis of test results and completion of medical decision making process will be conducted by an additional ED providers. TRAVEL OUTSIDE OF THE [place] IN LAST 30 DAYS: No - Related Data Allergies/Adverse Reactions: Choline Fenofibrate [From Trilipix] Allergy (Mild, Verified 01/07/18 23:40) rash oxcarbazepine [From Trileptal] Allergy (Verified 01/07/18 23:40) Past Medical History - General Information source: Patient - Social History Cigarette use (# per day): Yes - 2 packs/day Frequency of alcohol use: None Drug Abuse: Heroin - Last time this morning Pulmonary Medical History: Reports: Hx Bronchitis Renal/ Medical History: Reports: Hx Pelvic Inflammatory Disease. Denies: Hx Peritoneal Dialysis Psychiatric Medical History: Reports: Hx Anxiety, Hx Bipolar Disorder - mood d/o, Hx Depression Past Surgical History: Reports: Hx Tonsillectomy - Immunizations Hx Diphtheria, Pertussis, Tetanus Vaccination: Yes Physical Exam - Vital signs Vitals: Temp Pulse Resp BP Pulse Ox 98.6 F 116 H 18 107/57 L 97 01/30/20 21:35 01/30/20 21:35 01/30/20 21:35 01/30/20 21:35 01/30/20 21:35 Course - Vital Signs Vital signs: Temp Pulse Resp BP Pulse Ox 98.6 F 116 H 18 107/57 L 97 01/30/20 21:35 01/30/20 21:35 01/30/20 21:35 01/30/20 21:35 01/30/20 21:35 Doctor's Discharge - Discharge Referrals: LOCALMD,NO [Primary Care Provider] - Follow up as needed
[2020-01-31] MEDS ORDERED: VANCOMYCIN HCL INJ 1000 MG VIAL IV ONE (02:20)
[2020-01-31] MEDS ORDERED: LIDOCAINE 1%/EPINEPHRINE INJ 20 ML VIAL INJ ONE (02:28)
--- NOTE | 2020-01-31 02:28 | ER Document Report ---
ED General - General Chief Complaint: Abscess Stated Complaint: POSSIBLE ABSCESS/LEG UNDER ARM ELBOW ABOVE EYE Time Seen by Provider: 01/30/20 21:40 Mode of Arrival: Ambulatory Information source: Patient TRAVEL OUTSIDE OF THE [place] IN LAST 30 DAYS: No - HPI Notes: Patient is a 29 y/o female with a hx of IV drug abuse and hepatitis presents with multiple abscesses that began two days ago. Patient endorses abscesses to her right calf, right axilla, left elbow and right eyebrow. The right calf abscess if the worst and she reports drainage and significant swelling to her right lower leg. She is unable to ambulate on the right leg. She denies fever, abdominal pain, nausea, and vomiting. She has a hx of MRSA. She last used heroin one day ago. She is an everyday smoker. She denies any other medical history. - Related Data Allergies/Adverse Reactions: Choline Fenofibrate [From Trilipix] Allergy (Mild, Verified 01/07/18 23:40) rash oxcarbazepine [From Trileptal] Allergy (Verified 01/07/18 23:40) Past Medical History - General Information source: Patient - Social History Smoking Status: Current Every Day Smoker Cigarette use (# per day): Yes - 2 packs/day Frequency of alcohol use: None Drug Abuse: Heroin - Last time this morning Family History: Reviewed & Not Pertinent Pulmonary Medical History: Reports: Hx Bronchitis Renal/ Medical History: Reports: Hx Pelvic Inflammatory Disease. Denies: Hx Peritoneal Dialysis Psychiatric Medical History: Reports: Hx Anxiety, Hx Bipolar Disorder - mood d/o, Hx Depression Past Surgical History: Reports: Hx Tonsillectomy - Immunizations Hx Diphtheria, Pertussis, Tetanus Vaccination: Yes Review of Systems - Review of Systems Constitutional: No symptoms reported EENT: No symptoms reported Cardiovascular: No symptoms reported Respiratory: No symptoms reported Gastrointestinal: No symptoms reported Genitourinary: No symptoms reported Female Genitourinary: No symptoms reported Musculoskeletal: See HPI Skin: See HPI Hematologic/Lymphatic: No symptoms reported Neurological/Psychological: No symptoms reported Physical Exam - Vital signs Vitals: Temp Pulse Resp BP Pulse Ox 98.6 F 116 H 18 107/57 L 97 01/30/20 21:35 01/30/20 21:35 01/30/20 21:35 01/30/20 21:35 01/30/20 21:35 - Notes Notes: PHYSICAL EXAMINATION: VITALS: Vitals reviewed and patient is hypotensive. GENERAL: Very drowsy, female sleeping in bed. Has to be prompted multiple times to receive an answer to questions. HEAD: Atraumatic, normocephalic. EYES: Pupils equal, round, and reactive to light, extraocular movements intact, sclera anicteric, conjunctiva are normal. ENT: Nares patent. Moist mucous membranes. Oropharynx clear without exudates. NECK: Normal range of motion, supple without lymphadenopathy. LUNGS: Breath sounds clear to auscultation bilaterally and equal. No wheezes, rales, or rhonchi. HEART: Regular, rate, and rhythm without murmurs. ABDOMEN: Soft, nontender, normoactive bowel sounds. No guarding, no rebound. No masses appreciated. EXTREMITIES: Significant edema to the right calf with erythema and tenderness. Normal range of motion to all other extremities. No cyanosis. NEUROLOGICAL: No focal neurological deficits. Moves all extremities spontaneously and on command. PSYCH: Normal mood, normal affect. SKIN: Large draining abscess with purulent core and overlying necrotic tissue to the right medial, proximal calf. Abscesses with erythema and induration to the right eyebrow, left elbow and right axilla. Course - Re-evaluation Re-evalutation: Patient is a 29 y/o female with a hx of IV drug abuse and hepatitis who presents with multiple abscesses and swelling and erythema to her right calf. Patient is hypotensive with a BP of 93/51. Patient is afebrile. On exam, significant edema and erythema to right calf with a large abscess medially with a purulent core and overlying necrotic tissue. Abscesses that are indurated and erythematous to the right eyebrow, right axilla and left elbow. Sepsis workup initiated. IV Vancomycin and 1L IVF ordered. 01/31/20 03:10 Patient is refusing for the nurse to place a peripheral IV and is requesting an EJ. I will attempt an US guided IV in order to gain peripheral access. Patient is in agreement. 01/31/20 03:36 US guided IV performed with short 20G needle. Attempt successful on first try in left AC. Labs drawn and IVF and Vanc will be started. 01/31/20 04:40 75mcg of fentanyl given and incision and drainage performed on right calf abscess. Packing placed. Due to abscess extensiveness and si gnificant cellulitic changes to right calf, CT right lower leg with IV contrast ordered. 01/31/20 05:07 WBC minimally elevated at 10.6. PTT prolonged at 41 seconds. CMP unremarkable and within normal limits. VBG within normal limits with a pH of 7.31, pCO2 of 53.7 and HCO3 of 26.7. Serum HCG negative. Lactic normal at 0.8. 01/31/20 06:09 CT right lower leg shows no rim-enhancing fluid collection to suggest abscess formation. Edema and ill-defined free fluid within the subcutaneous soft tissues of the right lower extremity as well as a small wound within the right lower extremity soft tissues medially. These findings could be seen with cellulitis. I called Dr. Jaeger, hospitalist to discuss admission. He was busy with a patient and plans to call me back. 01/31/20 06:[address] Jaeger concerning the patient and he agrees to accept the patient for admission. Patient will be admitted inpatient to the medical floor. - Vital Signs Vital signs: Temp Pulse Resp BP Pulse Ox 98.9 F 91 13 102/73 100 01/31/20 05:20 01/31/20 01:32 01/31/20 05:01 01/31/20 05:00 01/31/20 05:01 - Laboratory Result Diagrams: 01/31/20 03:33 01/31/20 03:33 Laboratory results interpreted by me: 01/31/20 01/31/20 03:33 03:33 WBC 10.6 H RBC 3.63 L Hgb 10.6 L Hct 30.6 L RDW 14.6 H APTT 41.0 H - Diagnostic Test Radiology reviewed: Image reviewed, Reports reviewed Radiology results interpreted by me: Lower Extremity CT 01/31/20 04:42 IMPRESSION: 1. No rim-enhancing fluid collection to suggest abscess formation. 2. Edema and ill-defined free fluid within the subcutaneous soft tissues of the right lower extremity as well as a small wound within the right lower extremity soft tissues medially. These findings could be seen with cellulitis. This exam was performed according to our departmental dose-optimization program, which includes automated exposure control, adjustment of the mA and/or kV according to patient size and/or use of iterative reconstruction technique. - EKG Interpretation by Me Additional EKG results interpreted by me: Sinus rhythm with a rate of 89. QTc 453. Normal axis. No T wave inversions or ST segment changes in consecutive leads. Procedures - Incision and Drainage Right Medial Leg Time completed: 04:40 Type: Complex Anesthetic type: 1% Lidocaine w/epi I&D procedure: Shurclens applied, Iodoform packing placed Incision Method: Incision made with needle Amount/type of drainage: Moderate amount of purulent drainage Notes: Draining, open, purulent abscess with tunneling to the right medial calf. Area cleaned with saline and shurcleans. Surrounding area of the abscess anesthetized with 1% lidocaine with epi. Pickups used to debride the central area of the abscess. Iodoform packing placed. Patient did not tolerate the procedure well which made it difficult to fully debride. Dressing made with gauze and tape. No complications. Discharge - Discharge Clinical Impression: Abscess of right lower leg, Abscess of multiple sites, Cellulitis of right lower leg, Right leg pain, IV drug abuse Condition: Stable Disposition: ADMITTED INPATIENT Admitting Provider: Heide (Hospitalist) Unit Admitted: Medical Floor
[2020-01-31] MEDS ORDERED: NORMAL SALINE 1000 ML 1,000 ML IV ONE (02:32)
[2020-01-31 03:46] LABS: ABSOLUTE EOSINOPHILS # (AUTO) 0.4 10^3/uL (0.0-0.6); ABSOLUTE LYMPHOCYTES (AUTO) 3.8 10^3/uL (0.5-4.7); ABSOLUTE MONOCYTES (AUTO) 0.9 10^3/uL (0.1-1.4); ABSOLUTE NEUT (AUTO) 5.4 10^3/uL (1.7-8.2); BASOPHILS % (AUTO) 0.4 % (0-2); EOSINOPHILS % (AUTO) 3.6 % (0-6); HEMATOCRIT 30.6 % (36.0-47.0); HEMOGLOBIN 10.6 g/dL (12.0-15.5); LYMPHOCYTES % (AUTO) 36.2 % (13-45); MEAN CORPUSCULAR HEMOGLOBIN 29.1 pg (27.0-33.4); MEAN CORPUSCULAR HGB CONC 34.6 g/dL (32.0-36.0); MEAN CORPUSCULAR VOLUME 84 fl (80-97); MONOCYTES % (AUTO) 8.8 % (3-13); PLATELET COUNT 327 10^3/uL (150-450); RED BLOOD COUNT 3.63 10^6/uL (3.72-5.28); RED CELL DISTRIBUTION WIDTH 14.6 % (11.5-14.0); TOTAL CELLS COUNTED % (AUTO) 100 %; WHITE BLOOD COUNT 10.6 10^3/uL (4.0-10.5)
[2020-01-31 03:50] LABS: VENOUS BLOOD BASE EXCESS -0.7 mmol/L; VENOUS BLOOD HCO3 26.7 mmol/L (20-32); VENOUS BLOOD PCO2 53.7 mmHg (35-63); VENOUS BLOOD PH 7.31 (7.30-7.42)
[2020-01-31 03:58] LABS: INTERNATIONAL RATION (INR) 1.02; PROTHROMBIN TIME 13.6 SEC (11.4-15.4)
[2020-01-31 04:00] LABS: ALBUMIN 3.7 g/dL (3.5-5.0); ALKALINE PHOSPHATASE 90 U/L (38-126); ANION GAP 8 (5-19); ASPARTATE AMINO TRANSFERASE 17 U/L (14-36); BILIRUBIN,DIRECT 0.2 mg/dL (0.0-0.4); BILIRUBIN,TOTAL 0.5 mg/dL (0.2-1.3); BLOOD UREA NITROGEN 14 mg/dL (7-20); CALCIUM 9.1 mg/dL (8.4-10.2); CARBON DIOXIDE 27 mmol/L (22-30); CHLORIDE 103 mmol/L (98-107); GLUCOSE 85 mg/dL (75-110); POTASSIUM 4.3 mmol/L (3.6-5.0); TOTAL PROTEIN 6.7 g/dL (6.3-8.2)
[2020-01-31] MEDS ORDERED: FENTANYL CITRATE INJ/PF 100 MCG/2 ML AMPUL IV ONE (04:06)
--- NOTE | 2020-01-31 05:45 | RADIOLOGY REPORT (SQ) ---
EXAM DESCRIPTION: CT LOWER EXTREMITY WITH IV CONTRAST COMPLETED DATE/TME: 01/31/2020 04:42 CLINICAL HISTORY: 29 years Female, calf abscess COMPARISON: None Available. TECHNIQUE: CT of the right lower extremity obtained from the knee through the foot following the uncomplicated intravenous administration of 15 mL Omnipaque 350. FINDINGS: Soft tissue: Diffuse edema throughout the subcutaneous soft tissues of the right lower extremity. Ill-defined free fluid within the soft tissues at the right lateral aspect of the right lower extremity. No well-circumscribed rim-enhancing fluid collection. Small subcutaneous wound of the medial aspect of the right lower extremity at the level of the proximal tibia. No abnormalities of right lower extremity vasculature identified. No definite inflammatory changes in the deep fascial layers of the right lower extremity. Bones: No acute fracture. Normal osseous mineralization. IMPRESSION: 1. No rim-enhancing fluid collection to suggest abscess formation. 2. Edema and ill-defined free fluid within the subcutaneous soft tissues of the right lower extremity as well as a small wound within the right lower extremity soft tissues medially. These findings could be seen with cellulitis. This exam was performed according to our departmental dose-optimization program, which includes automated exposure control, adjustment of the mA and/or kV according to patient size and/or use of iterative reconstruction technique.
[2020-01-31] MEDS ORDERED: PROMETHAZINE HCL INJ 25 MG/1 ML VIAL IV PRN (06:32)
[2020-01-31] MEDS ORDERED: ACETAMINOPHEN 325 MG TABLET PO PRN (06:36)
[2020-01-31] MEDS ORDERED: GUAIFENESIN SYRP 200 MG/10 ML UDC PO PRN (06:36)
[2020-01-31] MEDS ORDERED: NICOTINE 21 MG/24 HR PATCH.TD24 TD PRN (06:36)
[2020-01-31] MEDS ORDERED: LORAZEPAM INJ 2 MG/1 ML VIAL IV PRN (06:36)
[2020-01-31] MEDS ORDERED: MORPHINE SULFATE 10 MG/ML INJ IV PRN ×4 (06:36→06:45)
[2020-01-31] MEDS ORDERED: MELATONIN 5 MG TABLET PO PRN (06:36)
[2020-01-31] MEDS ORDERED: CEFEPIME 2 GM/D5W RTU 2 GM/50 ML RTUPB IV SCH (06:45)
--- NOTE | 2020-01-31 08:53 | EKG REPORT ---
SEVERITY:- BORDERLINE ECG - SINUS RHYTHM PROBABLE LEFT ATRIAL ABNORMALITY IVCD : Confirmed by: Jaya Lehman MD 31-Jan-2020 08:52:06
[2020-01-31] MEDS ORDERED: VANCOMYCIN HCL INJ 1000 MG VIAL IV SCH (10:00)
[2020-01-31] MEDS: FAMOTIDINE 20 MG TABLET PO SCH ×2 (11:36→21:34)
[2020-01-31] MEDS ORDERED: LORAZEPAM INJ 2 MG/1 ML VIAL IV ONE (13:00)
[2020-01-31] MEDS: METHADONE HCL 10 MG TABLET PO SCH ×2 (14:12→21:34)
[2020-01-31] MEDS: HEPARIN SOD (PORCINE) 5,000 UNIT/ML 1 ML VIAL SUBCUT SCH ×2 (14:12→21:36)
[2020-01-31] MEDS: KETOROLAC TROMETHAMINE INJ/PF 30 MG/1 ML SDV IV PRN ×2 (14:23→21:31)
[2020-01-31] MEDS: VANCOMYCIN HCL 1,000 MG in DEXTROSE 5%-WATER 250 ML IV SCH ×2 (14:24→22:39)
--- NOTE | 2020-01-31 16:33 | RADIOLOGY REPORT (SQ) ---
EXAM DESCRIPTION: CT FACIAL AREA WITH IMAGES COMPLETED DATE/TIME: 01/31/2020 4:24 pm REASON FOR STUDY: periorbital cellulitis COMPARISON: None. TECHNIQUE: Post contrast images through the facial bones and orbits windowed for bone and soft tissu e. Additional coronal and sagittal reconstructed images reviewed. All images stored on PACS. All CT scanners at this facility use dose modulation, iterative reconstruction, and/or weight based d osing when appropriate to reduce radiation dose to as low as reasonably achievable (ALARA). [facility]: Dose Right [facility]: CareDose [facility]: Dose Right [facility]: Teradose 4D [facility]: [email or web address] CONTRAST TYPE AND DOSE: contrast/concentration: Isovue 350.00 mmol/ml; Total Contrast Delivered: 70. 0 ml; Total Saline Delivered: 42.0 ml RENAL FUNCTION: BUN 14, creatinine 0.6 they had RADIATION DOSE: CT Rad equipment meets quality standard of care and radiation dose reduction techniq ues were employed. CTDIvol: 30.4 mGy. DLP: 532 mGy-cm. . LIMITATIONS: None. FINDINGS: FACIAL BONES: No fracture or bone lesion. ORBITS: Right periorbital soft tissue swelling this remains preseptal. No postseptal involvement. PARANASAL SINUSES: Clear. No significant mucosal thickening, mass or fluid. No nasal polyps. Maxilla ry sinus outlets are patent. SOFT TISSUES: No mass or edema. No abnormal enhancement. INFERIOR BRAIN: Limited view. No acute findings. OTHER: No other significant finding. IMPRESSION: Findings are consistent with right periorbital cellulitis. No focal abscess. No postse ptal involvement. TECHNICAL DOCUMENTATION: JOB ID: [id number] Quality ID # [id number]: Final reports with documentation of one or more dose reduction techniques (e.g., Au tomated exposure control, adjustment of the mA and/or kV according to patient size, use of iterative reconstruction technique) 2010 [email or web address]- All Rights Reserved Reading location - IP/workstation name: [email or web address]
[2020-01-31] MEDS ORDERED: NICOTINE 14 MG/24 HR PATCH.TD24 TD SCH (17:30)
--- NOTE | 2020-01-31 20:06 | PDOC H&P ---
History of Present Illness Admission Date/PCP: 01/31/20 06:44 Patient complains of: Right leg pain and right periorbital pain. History of Present Illness: AILEEN DIAS is a 29 year old female, current IV drug abuser who came in the ED today due to pain on her right lower leg and around her right eye. She has multiple abscess on her right axilla, right leg, left elbow and right periorbital area which started 2 days prior. She denied any fever, headache, blurring of vision. She has history of MRSA. Last heroin use was 1 day prior to admission. In the emergency room, blood pressure 107/57, pulse rate of 102, respiratory rate 18, O2 sat 100%, temp 98.2. IND was done on the abscess on her right lower leg. She was started on cefepime and vancomycin. Hospitalist service called for evaluation and management. CT of the facial bones showed periorbital cellulitis. No drainable abscess. Past Medical History Cardiac Medical History: Reports: None Pulmonary Medical History: Reports: Bronchitis EENT Medical History: Reports: None Neurological Medical History: Reports: None Endocrine Medical History: Reports: None Renal/ Medical History: Reports: None Malignancy Medical History: Reports: None GI Medical History: Reports: None Musculoskeltal Medical History: Reports: None Skin Medical History: Reports: None Psychiatric Medical History: Reports: Bipolar Disorder - mood d/o, Depression Infectious Medical History: Reports: Methicillin-Resistant Staph Aureus, Other Infectious History Note: History of MRSA cellulitis Past Surgical History Past Surgical History: Reports: Tonsillectomy Social History Smoking Status: Current Every Day Smoker Frequency of Alcohol Use: Occasional Hx Recreational Drug Use: Yes Drugs: Heroin Hx Prescription Drug Abuse: No - denies - Advance Directive Resuscitation Status: Full Code Family History Family History: Reviewed & Not Pertinent Parental Family History Reviewed: Yes Children Family History Reviewed: Yes Sibling(s) Family History Reviewed.: Yes Medication/Allergy Home Medications: No Home Medications 01/31/20 Allergies/Adverse Reactions: Choline Fenofibrate [From Trilipix] Allergy (Mild, Verified 01/07/18 23:40) rash oxcarbazepine [From Trileptal] Allergy (Verified 01/07/18 23:40) Review of Systems Constitutional: PRESENT: as per HPI, fatigue, headache(s). ABSENT: chills, fever(s) Eyes: ABSENT: visual disturbances Ears: ABSENT: hearing changes Cardiovascular: ABSENT: chest pain, dyspnea on exertion, edema, orthropnea, palpitations Respiratory: ABSENT: cough, dyspnea, hemoptysis Gastrointestinal: ABSENT: heartburn, hematemesis, hematochezia Neurological: ABSENT: focal weakness, numbness, paresthesias Physical Exam Vital Signs: Temp Pulse Resp BP Pulse Ox 98.2 F 102 H 18 136/64 H 96 01/31/20 16:00 01/31/20 16:00 01/31/20 16:00 01/31/20 16:00 01/31/20 16:00 Intake & Output 01/30/20 01/31/20 02/01/20 06:59 06:59 06:59 Intake Total 1000 300 Balance 1000 300 Weight 74.7 kg General appearance: PRESENT: no acute distress, thin, other - In pain Head exam: PRESENT: atraumatic, normocephalic Eye exam: PRESENT: periorbital swelling - Right. ABSENT: conjunctival injection Ear exam: PRESENT: normal external ear exam Mouth exam: PRESENT: moist Neck exam: PRESENT: full ROM Respiratory exam: PRESENT: clear to auscultation jose angel, symmetrical, unlabored Cardiovascular exam: PRESENT: RRR, +S1, +S2 Vascular exam: PRESENT: normal capillary refill GI/Abdominal exam: PRESENT: normal bowel sounds, soft. ABSENT: rebound, tenderness Gentrourinary exam: PRESENT: other - Tenderness right axillary area, surgical dressing over I&D site right lower leg Musculoskeletal exam: PRESENT: full ROM Neurological exam: PRESENT: alert, awake, oriented to person, oriented to place, oriented to time Psychiatric exam: PRESENT: normal mood Skin exam: PRESENT: normal color Results Laboratory Results: 01/31/20 03:33 01/31/20 03:33 01/31/20 01/31/20 01/31/20 03:33 03:33 03:33 WBC 10.6 H RBC 3.63 L Hgb 10.6 L Hct 30.6 L MCV 84 MCH 29.1 MCHC 34.6 RDW 14.6 H Plt Count 327 Seg Neutrophils % 51.0 VBG pH 7.31 VBG pCO2 53.7 VBG HCO3 26.7 VBG Base Excess -0.7 Sodium 138.0 Potassium 4.3 Chloride 103 Carbon Dioxide 27 Anion Gap 8 BUN 14 Creatinine 0.68 Est GFR ( Amer) > 60 Glucose 85 Lactic Acid Calcium 9.1 Total Bilirubin 0.5 AST 17 Alkaline Phosphatase 90 Total Protein 6.7 Albumin 3.7 Serum HCG, Qual 01/31/20 01/31/20 03:33 03:33 WBC RBC Hgb Hct MCV MCH MCHC RDW Plt Count Seg Neutrophils % VBG pH VBG pCO2 VBG HCO3 VBG Base Excess Sodium Potassium Chloride Carbon Dioxide Anion Gap BUN Creatinine Est GFR ( Amer) Glucose Lactic Acid 0.8 Calcium Total Bilirubin AST Alkaline Phosphatase Total Protein Albumin Serum HCG, Qual NEGATIVE Impressions: Facial Bones CT 01/31/20 00:00 IMPRESSION: Findings are consistent with right periorbital cellulitis. No focal abscess. No postseptal involvement. Lower Extremity CT 01/31/20 04:42 IMPRESSION: 1. No rim-enhancing fluid collection to suggest abscess formation. 2. Edema and ill-defined free fluid within the subcutaneous soft tissues of the right lower extremity as well as a small wound within the right lower extremity soft tissues medially. These findings could be seen with cellulitis. This exam was performed according to our departmental dose-optimization program, which includes automated exposure control, adjustment of the mA and/or kV according to patient size and/or use of iterative reconstruction technique. Assessment and Plan - Diagnosis (1) Abscess of right lower leg Is this a current diagnosis for this admission?: Yes Plan: -Has a history of recurrent admission due to cellulitis likely secondary to IV drug use -Now coming in with abscess on right lower leg, right axillary area, periorbital area -CT facial showed periorbital cellulitis -Right lower leg abscess drained in the ED -Blood culture pending -We will continue cefepime and Vanco for now pending blood cultures (2) IV drug abuse Is this a current diagnosis for this admission?: Yes Plan: -Story of IV drug use -Use 1 day prior to admission -Started on methadone - Time Time Spent with patient: 25-34 minutes Anticipated Discharge Disposition: Home, Self Care Anticipated Discharge Timeframe: within 48 hours
[2020-01-31] MEDS: CEFEPIME HCL 2 GM in DEXTROSE 5%-WATER 50 ML IV SCH ×2 (22:08→22:38)
[2020-01-31] MEDS ORDERED: LORAZEPAM 1 MG TABLET PO PRN (23:31)
[2020-01-31] MEDS ORDERED: TRAMADOL HCL 50 MG TABLET PO PRN (23:32)
[2020-01-31] MEDS ORDERED: NICOTINE 21 MG/24 HR PATCH.TD24 TD ONE (23:45)
[2020-02-01] MEDS: HEPARIN SOD (PORCINE) 5,000 UNIT/ML 1 ML VIAL SUBCUT SCH (05:04)
[2020-02-01] MEDS: VANCOMYCIN HCL 1,000 MG in DEXTROSE 5%-WATER 250 ML IV SCH (05:53)
[2020-02-01 09:32] VITALS: BP 114/67
[2020-02-01] MEDS ORDERED: NICOTINE 14 MG/24 HR PATCH.TD24 TD SCH (10:00)
[2020-02-01] MEDS: METHADONE HCL 10 MG TABLET PO SCH (11:55)
[2020-02-01] MEDS: FAMOTIDINE 20 MG TABLET PO SCH (11:57)
[2020-02-01] MEDS: CEFEPIME HCL 2 GM in DEXTROSE 5%-WATER 50 ML IV SCH (11:59)
--- NOTE | 2020-02-01 14:58 | Left Against Medical Advice ---
Against Medical Advice Admission Date/Time: 01/31/20 06:44 Primary Care Provider: Date of Patient Emigration: 02/01/20 - Diagnosis: (1) Abscess of right lower leg Is this a current diagnosis for this admission?: Yes (2) IV drug abuse Is this a current diagnosis for this admission?: Yes - Summary: Summary: Please see Admission and Progress Notes as well.oral antibiotics called to her pharmacy AILEEN Alice ARUN is a 29 F, who LEFT AGAINST MEDICAL ADVICE. The Patient was admitted on 01/31/20 06:44.
[2020-02-01] MEDS ORDERED: NICOTINE 21 MG/24 HR PATCH.TD24 TD SCH (22:00)
== END 2020-02-01 12:50 | disposition left against medical advice (07) | DRG 603 ==
LOC: ER 21:28 → EH 01-31 06:44 → 5 01-31 08:48
PROVIDERS: ADMIT Emergency Medicine; ATTEND Internal Medicine
PROC: 0H9KXZZ Drainage of Right Lower Leg Skin, External Approach (ICD-10-PCS; principal; 2020-01-31)
DX: L02.415 Cutaneous abscess of right lower limb (principal); L02.411 Cutaneous abscess of right axilla; L02.413 Cutaneous abscess of right upper limb; H05.013 Cellulitis of bilateral orbits; F11.10 Opioid abuse, uncomplicated; F31.9 Bipolar disorder, unspecified; F17.200 Nicotine dependence, unspecified, uncomplicated; F41.9 Anxiety disorder, unspecified; Z53.29 Procedure and treatment not carried out because of patient's decision for other reasons; Z86.14 Personal history of Methicillin resistant Staphylococcus aureus infection; Z88.0 Allergy status to penicillin
CPT/HCPCS: 36415; 70487; 80053; 82803; 83605; 84703; 85025; 85610; 85730; 87040; 93005; 93010; 96361; 96365; 96366; 96375; 99285; J0692; J1644; J1885; J3010; J3370; J3490; J7030; J7060